=== PATIENT | female | born 1935 | race Caucasian/White ===

== ENCOUNTER 2016-08-09 08:38 | Inpatient (IN) | payer MEDICARE ==
[2016-08-09 08:44] LABS: Glucose,Whole Blood 138 mg/dL (75-99)
[2016-08-09] MEDS ORDERED: SODIUM CHLORIDE 0.9% 1,000 ML IV STA (08:56)
--- NOTE | 2016-08-09 08:59 | ED ---
General Adult HPI - General Chief complaint: Syncope Stated complaint: Syncope Time Seen by Provider: 08/09/16 08:51 Source: patient, RN notes reviewed Mode of arrival: wheelchair Limitations: no limitations - History of Present Illness Initial comments: Patient is a pleasant 81-year-old female presenting to the emergency department complaining of syncopal episode. Patient did bring her daughter to the hospital. Patient was sitting down for approximately 5 minutes when she then passed out. Patient felt warm all over prior to this episode. Patient did vomit once following the episode. Patient still feels somewhat warm however otherwise has no complaints. No chest pain. No dyspnea. No weakness or confusion. - Related Data Home Medications Medication Instructions Recorded Confirmed Aspirin 325 mg PO DAILY 08/09/16 08/09/16 Ezetimibe/Simvastatin [Vytorin 1 tab PO DAILY 08/09/16 08/09/16 10-40 mg Tablet] Metoprolol Succinate (ER) [Toprol 25 mg PO DAILY 08/09/16 08/09/16 Xl] Allergies Allergy/AdvReac Type Severity Reaction Status Date / Time No Known Allergies Allergy Verified 08/09/16 09:52 Review of Systems ROS Statement: Those systems with pertinent positive or pertinent negative responses have been documented in the HPI. ROS Other: All systems not noted in ROS Statement are negative. Constitutional: Denies: fever Eyes: Denies: eye pain ENT: Denies: ear pain Respiratory: Denies: cough, dyspnea Cardiovascular: Denies: chest pain Endocrine: Denies: fatigue Gastrointestinal: Reports: nausea, vomiting. Denies: abdominal pain Genitourinary: Denies: dysuria Musculoskeletal: Denies: back pain Skin: Denies: rash Neurological: Denies: headache, weakness, numbness, confusion Past Medical History Past Medical History: Chest Pain / Angina, Hyperlipidemia, Hypertension, Osteoarthritis (OA), Thyroid Disorder Additional Past Medical History / Comment(s): leonor cataracts, past fall broke rt leg, stress test, growth(hard spot in mouth unable to wear denture) History of Any Multi-Drug Resistant Organisms: None Reported Past Surgical History: Back Surgery, Hysterectomy, Orthopedic Surgery Additional Past Surgical History / Comment(s): thyroidectomy,edg/colonoscopy, leonor knee arthroscopies, leonor knee arthroplasties, sx to repair broken fibula. Past Anesthesia/Blood Transfusion Reactions: Motion Sickness Additional Past Anesthesia/Blood Transfusion Reaction / Comment(s): blood transfusion-no reaction Past Psychological History: No Psychological Hx Reported Smoking Status: Never smoker Past Alcohol Use History: None Reported Past Drug Use History: None Reported - Past Family History Mother Family Medical History: Cancer Additional Family Medical History / Comment(s): breast cancer Sister(s) Family Medical History: Cancer Additional Family Medical History / Comment(s): breast cancer Father Family Medical History: Myocardial Infarction ([place]) Additional Family Medical History / Comment(s): from mi at age 62 General Exam Limitations: no limitations General appearance: alert, in no apparent distress Head exam: Present: atraumatic Eye exam: Present: normal appearance, PERRL ENT exam: Present: normal oropharynx Neck exam: Present: normal inspection Respiratory exam: Present: normal lung sounds bilaterally Cardiovascular Exam: Present: regular rate, normal rhythm Expanded Peripheral pulses: 2+: Radial (R), Radial (L), Dorsalis Pedis (R), Dorsalis Pedis (L) GI/Abdominal exam: Present: soft, normal bowel sounds. Absent: distended, tenderness, guarding, rebound, rigid, pulsatile mass Extremities exam: Present: normal inspection. Absent: pedal edema, calf tenderness Neurological exam: Present: alert, CN II-XII intact Expanded Neurological exam: Present: protecting the airway Speech: Present: fluid speech Motor strength exam: RUE: 5, LUE: 5, RLE: 5, LLE: 5 Eye Response: (4) open spontaneously Motor Response: (6) obeys commands Verbal Response: (5) oriented Psychiatric exam: Present: normal affect, normal mood Skin exam: Present: normal color Course Vital Signs 08/09/16 08:40 Temperature 98 F Pulse Rate 71 Respiratory 16 Rate Blood Pressure 152/84 O2 Sat by Pulse 96 Oximetry EKG Findings - EKG Comments: EKG Findings:: Normal sinus rhythm at 80. Normal intervals. Normal axis. Normal QRS. T wave inversion in leads V1 through V4. Previous EKG reviewed. Medical Decision Making - Medical Decision Making Patient reevaluated and resting comfortably in bed. Patient complains of continued nausea and did vomit one more time. Case was discussed with practitioner Camila, who will admit for Dr. Hopson. - Lab Data Result diagrams: 08/09/16 08:55 08/09/16 08:55 Lab Results 08/09/16 08/09/16 08/09/16 Range/Units 08:42 08:55 08:55 WBC 11.9 H (3.8-10.6) k/uL RBC 4.92 (3.80-5.40) m/uL Hgb 14.9 (11.4-16.0) gm/dL Hct 44.2 (34.0-46.0) % MCV 89.8 (80.0-100.0) fL MCH 30.3 (25.0-35.0) pg MCHC 33.7 (31.0-37.0) g/dL RDW 13.0 (11.5-15.5) % Plt Count 222 (150-450) k/uL Neutrophils % (Manual) 51.0 % Lymphocytes % (Manual) 45.0 % Monocytes % (Manual) 4.0 % Neutrophils # (Manual) 6.1 (1.3-7.7) k/uL Lymphocytes # (Manual) 5.4 H (1.0-4.8) k/uL Monocytes # (Manual) 0.5 (0-1.0) k/uL Nucleated RBCs 0 (0-0) /100 WBC Manual Slide Review Performed RBC Morphology Normal PT (9.0-12.0) sec INR (<1.1) APTT (22.0-30.0) sec Sodium (137-145) mmol/L Potassium (3.5-5.1) mmol/L Chloride (98-107) mmol/L Carbon Dioxide (22-30) mmol/L Anion Gap mmol/L BUN (7-17) mg/dL Creatinine (0.52-1.04) mg/dL Est GFR (MDRD) Af Amer (>60 ml/min/1.73 sqM) Est GFR (MDRD) Non-Af (>60 ml/min/1.73 sqM) Glucose (74-99) mg/dL POC Glucose (mg/dL) 138 H (75-99) mg/dL POC Glu Equipment Operator/Laborer/Supervisor ID Lyndsey Keys Calcium (8.4-10.2) mg/dL Total Bilirubin (0.2-1.3) mg/dL AST (14-36) U/L ALT (9-52) U/L Alkaline Phosphatase (38-126) U/L Total Creatine Kinase <20 L (30-135) U/L CK-MB (CK-2) 0.4 (0.0-2.4) ng/mL CK-MB (CK-2) Rel Index 0.0 Troponin I <0.012 (0.000-0.034) ng/mL Total Protein (6.3-8.2) g/dL Albumin (3.5-5.0) g/dL 08/09/16 08/09/16 Range/Units 08:55 08:55 WBC (3.8-10.6) k/uL RBC (3.80-5.40) m/uL Hgb (11.4-16.0) gm/dL Hct (34.0-46.0) % MCV (80.0-100.0) fL MCH (25.0-35.0) pg MCHC (31.0-37.0) g/dL RDW (11.5-15.5) % Plt Count (150-450) k/uL Neutrophils % (Manual) % Lymphocytes % (Manual) % Monocytes % (Manual) % Neutrophils # (Manual) (1.3-7.7) k/uL Lymphocytes # (Manual) (1.0-4.8) k/uL Monocytes # (Manual) (0-1.0) k/uL Nucleated RBCs (0-0) /100 WBC Manual Slide Review RBC Morphology PT 10.4 (9.0-12.0) sec INR 1.0 (<1.1) APTT 21.6 L (22.0-30.0) sec Sodium 141 (137-145) mmol/L Potassium 3.8 (3.5-5.1) mmol/L Chloride 106 (98-107) mmol/L Carbon Dioxide 25 (22-30) mmol/L Anion Gap 10 mmol/L BUN 10 (7-17) mg/dL Creatinine 0.63 (0.52-1.04) mg/dL Est GFR (MDRD) Af Amer >60 (>60 ml/min/1.73 sqM) Est GFR (MDRD) Non-Af >60 (>60 ml/min/1.73 sqM) Glucose 136 H (74-99) mg/dL POC Glucose (mg/dL) (75-99) mg/dL POC Glu Equipment Operator/Laborer/Supervisor ID Calcium 9.1 (8.4-10.2) mg/dL Total Bilirubin 0.8 (0.2-1.3) mg/dL AST 19 (14-36) U/L ALT 15 (9-52) U/L Alkaline Phosphatase 68 (38-126) U/L Total Creatine Kinase (30-135) U/L CK-MB (CK-2) (0.0-2.4) ng/mL CK-MB (CK-2) Rel Index Troponin I (0.000-0.034) ng/mL Total Protein 6.7 (6.3-8.2) g/dL Albumin 3.7 (3.5-5.0) g/dL - Radiology Data Radiology results: report reviewed (Computed tomography scan of the brain shows no acute hemorrhage or mass effect. Remote menstrual vascular ischemia. Low- attenuation basal ganglion likely on the basis of lacunar infarct), image reviewed (Chest x-ray reveals no acute process) Disposition Clinical Impression: Syncope Disposition: ADMITTED IP TO THIS [facility] Referrals: Willie Hopson DO [Primary Care Provider] - 1-2 days Decision Time: 10:04
[2016-08-09 09:13] LABS: CHCM 33.6; HCT 44.2 % (34.0-46.0); HDW 2.38; HGB 14.9 gm/dL (11.4-16.0); MCH 30.3 pg (25.0-35.0); MCHC 33.7 g/dL (31.0-37.0); MCV 89.8 fL (80.0-100.0); RBC 4.92 m/uL (3.80-5.40); WBC 11.9 k/uL (3.8-10.6); WBC (Perox) 11.66
--- NOTE | 2016-08-09 09:21 | XR ---
EXAMINATION TYPE: XR chest 2V DATE OF EXAM: 08/09/2016 COMPARISON: 12/11/2015 TECHNIQUE: PA and lateral views submitted. HISTORY: Syncope FINDINGS: The lungs are clear and there is no pneumothorax, pleural effusion, or focal pneumonia. Atheroscler otic change aorta. Chronic change of the AC joints. Hypertrophic change of the spine. IMPRESSION: 1. No acute process.
[2016-08-09 09:23] LABS: ALT 15 U/L (9-52); AST 19 U/L (14-36); Alkaline Phosphatase 68 U/L (38-126); Anion Gap 10 mmol/L; Blood Urea Nitrogen 10 mg/dL (7-17); Calcium 9.1 mg/dL (8.4-10.2); Carbon Dioxide 25 mmol/L (22-30); Chloride 106 mmol/L (98-107); Glucose 136 mg/dL (74-99); Non-African American GFR(MDRD) >60 (>60 ml/min/1.73 sqM); Potassium 3.8 mmol/L (3.5-5.1); Sodium 141 mmol/L (137-145); Total Bilirubin 0.8 mg/dL (0.2-1.3); Total Protein 6.7 g/dL (6.3-8.2)
--- NOTE | 2016-08-09 09:24 | CT ---
EXAMINATION TYPE: CT brain wo con DATE OF EXAM: 08/09/2016 COMPARISON: NONE HISTORY: syncope CT DLP: 999.8 mGycm Automated exposure control for dose reduction was used. FINDINGS: Findings of chronic mastoiditis noted. Moderate degenerative change. Periventricular low attenuation nonspecific but most compatible with remote microvascular ischemia. Low-attenuation the basal ganglia bilaterally. IMPRESSION: NO ACUTE HEMORRHAGE OR MASS EFFECT. NONSPECIFIC WHITE MATTER CHANGES MOST TYPICAL REMOTE MICROVASCULA R ISCHEMIA. CORRELATE CLINICALLY. LOW-ATTENUATION in THE BASAL GANGLIA LIKELY ON THE BASIS OF LACUNAR INFARCTIONS. IF THERE IS CLINICA L CONCERN FOR ACUTE ISCHEMIA CORRELATE WITH DIFFUSION WEIGHTED MRI.
[2016-08-09 09:39] LABS: Add Differential Manual Differential; Creatine Kinase <20 U/L (30-135)
[2016-08-09 09:44] LABS: Nucleated Red Blood Cells 0 /100 WBC (0-0); Total Cells Counted 100
[2016-08-09 09:45] LABS: Manual Review Performed; RBC Morphology Normal
[2016-08-09 09:48] LABS: Prothrombin Time 10.4 sec (9.0-12.0)
[2016-08-09 09:52] LABS: Creatine Kinase MB 0.4 ng/mL (0.0-2.4); Troponin I <0.012 ng/mL (0.000-0.034)
[2016-08-09 10:01] LABS: Partial Thromboplastin Time 21.6 sec (22.0-30.0)
[2016-08-09] MEDS ORDERED: ONDANSETRON 4 MG/2 ML VIAL IVP STA (10:02)
[2016-08-09] MEDS ORDERED: NALOXONE 0.4 MG/ML 1 ML VIAL IV PRN (10:04)
[2016-08-09] MEDS ORDERED: ONDANSETRON 4 MG/2 ML VIAL IVP PRN (10:04)
[2016-08-09] MEDS: SODIUM CHLORIDE 0.9% 1,000 ML IV SCH (12:36)
[2016-08-09] MEDS: ENOXAPARIN 40 MG/0.4 ML SYRINGE SQ SCH (12:36)
--- NOTE | 2016-08-09 12:43 | P.CONS ---
History of Present Illness - Reason for Consult Consult date: 08/09/16 Syncope - Chief Complaint Syncope - History of Present Illness Is a pleasant 81-year-old female being evaluated by the neurology service for a syncopal episode. She was sitting in a chair at home when she became hot and nauseous and had a syncopal episode in her chair. Her daughter brought her in and said that it lasted a few seconds. There was no tongue biting, witnessed seizure activity, incontinence, or postictal confusion. She denied chest pain head injury or recent illness. Initial workup in the ER did show a mildly elevated white count. CT of the brain showed no acute hemorrhage or mass. There was nonspecific white matter changes likely representing remote microvascular ischemia. There was low attenuation in the basal ganglia possible lacunar infarcts. At the time my exam she is resting comfortably in bed in no acute distress. Review of Systems All systems: negative Past Medical History Past Medical History: Chest Pain / Angina, Hyperlipidemia, Hypertension, Osteoarthritis (OA), Thyroid Disorder Additional Past Medical History / Comment(s): leonor cataracts, past fall broke rt leg, stress test, growth(hard spot in mouth unable to wear denture) History of Any Multi-Drug Resistant Organisms: None Reported Past Surgical History: Back Surgery, Hysterectomy, Orthopedic Surgery Additional Past Surgical History / Comment(s): thyroidectomy,edg/colonoscopy, leonor knee arthroscopies, leonor knee arthroplasties, sx to repair broken fibula. Past Anesthesia/Blood Transfusion Reactions: Motion Sickness Additional Past Anesthesia/Blood Transfusion Reaction / Comm: blood transfusion- no reaction Past Psychological History: No Psychological Hx Reported Smoking Status: Never smoker - Past Family History Mother Family Medical History: Cancer Additional Family Medical History / Comment(s): breast cancer Sister(s) Family Medical History: Cancer Additional Family Medical History / Comment(s): breast cancer Father Family Medical History: Myocardial Infarction (CT) Additional Family Medical History / Comment(s): from mi at age 62 Medications and Allergies Home Medications Medication Instructions Recorded Confirmed Type Aspirin 325 mg PO DAILY 08/09/16 08/09/16 History Ezetimibe/Simvastatin [Vytorin 1 tab PO DAILY 08/09/16 08/09/16 History 10-40 mg Tablet] Metoprolol Succinate (ER) [Toprol 25 mg PO DAILY 06/18/17 06/18/17 History Xl] Allergies Allergy/AdvReac Type Severity Reaction Status Date / Time No Known Allergies Allergy Verified 08/09/16 09:52 Physical Exam Vitals: Vital Signs Temp Pulse Pulse Resp BP BP Pulse Ox 08/09/16 11:05 97.1 F L 68 18 145/82 100 08/09/16 10:45 97.9 F 65 16 145/73 97 08/09/16 10:10 63 16 132/70 98 08/09/16 09:35 62 16 137/69 95 08/09/16 08:40 98 F 71 16 152/84 96 Intake and Output 08/08/16 08/09/16 08/09/16 22:59 06:59 14:59 Other: Weight 74.5 kg Patient Weight 08/10/16 06:59 Weight 74.5 kg - Constitutional General appearance: average body habitus, cooperative, no acute distress - EENT Eyes: no abnormal pupil, EOMI, PERRLA, no ptosis ENT: hearing grossly normal - Neck Neck: normal ROM, no rigidity - Respiratory Respiratory: negative: prolonged expiration, prolonged inspiration - Cardiovascular Rhythm: regular - Gastrointestinal General gastrointestinal: no distended, no tenderness - Neurologic Patient is alert awake and oriented 3. Speech-language are normal. There is no lateralizing weakness. There is no facial asymmetry. Strength is 5 minus out of 5 bilateral upper and lower extremities. There is no sensory deficit. No tremors or seizure-like activities are seen. Results CBC & Chem 7: 08/09/16 08:55 08/09/16 08:55 Labs: Abnormal Lab Results - Last 24 Hours (Table) 08/09/16 08/09/16 08/09/16 Range/Units 08:42 08:55 08:55 WBC 11.9 H (3.8-10.6) k/uL Lymphocytes # (Manual) 5.4 H (1.0-4.8) k/uL APTT (22.0-30.0) sec Glucose (74-99) mg/dL POC Glucose (mg/dL) 138 H (75-99) mg/dL Total Creatine Kinase <20 L (30-135) U/L 08/09/16 08/09/16 Range/Units 08:55 08:55 WBC (3.8-10.6) k/uL Lymphocytes # (Manual) (1.0-4.8) k/uL APTT 21.6 L (22.0-30.0) sec Glucose 136 H (74-99) mg/dL POC Glucose (mg/dL) (75-99) mg/dL Total Creatine Kinase (30-135) U/L Assessment and Plan (1) Dizziness Status: Acute (2) Abnormal CT scan of head Status: Acute (3) 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 I will order MRI of the brain, carotid Doppler, a lipid panel, serum homocysteine and an EEG area recommend neurological checks, evaluation by physical and occupational therapy. Continue current dose of aspirin and Vytorin. Continue the rest of your workup. We will continue to follow and make recommendations based on the above studies. I have reviewed the history and physical on the above patient. I have reviewed the above note, and agree.
--- NOTE | 2016-08-09 15:38 | US ---
EXAMINATION TYPE: US carotid duplex BILAT DATE OF EXAM: 08/09/2016 COMPARISON: NONE CLINICAL HISTORY: syncope. EXAM MEASUREMENTS: RIGHT: Peak Systolic Velocity (PSV) cm/sec ----- Right CCA: 46.8 ----- Right ICA: 83.1 ----- Right ECA: 101.7 ICA/CCA ratio: 1.8 RIGHT: End Diastole cm/sec ----- Right CCA: 10.6 ----- Right ICA: 10.6 ----- Right ECA: 9.1 LEFT: Peak Systolic Velocity (PSV) cm/sec ----- Left CCA: 64.4 ----- Left ICA: 70.9 ----- Left ECA: 96.8 ICA/CCA ratio: 1.1 LEFT: End Diastole cm/sec ----- Left CCA: 24.1 ----- Left ICA: 16.0 ----- Left ECA: 6.3 VERTEBRALS (direction of flow): Right Vertebral: Antegrade Left Vertebral: Antegrade Limited due to tortuosity of vessels bilaterally. No significant stenosis seen IMPRESSION: 1. Turbulent flow likely related to tortuosity of the vessels. 2. No suspicious increase velocities suggest significant flow-limiting stenosis. Criteria for Assigning % of Stenosis / Diameter reduction (Estimation based on the indirect measurements of the internal carotid artery velocities (ICA PSV). 1. Normal (no stenosis)=ICA PSV < 125 cm/s: ratio < 2.0: ICA EDV<40 cm/s. 2. Less than 50% stenosis=ICA PSV < 125 cm/s: ratio < 2.0: ICA EDV<40 cm/s. 3. 50 to 69% stenosis=ICA PSV of 125 to 230 cm/s: ration 2.0 ? 4.0: ICA EDV 40-100 cm/s. 4. Greater than 70% stenosis to near occlusion= ICA PSV > 230 cm/s: ratio > 4.0: ICA EDV > 100 cm/s. 5. Near occlusion= ICA PSV velocities may be low or undetectable: variable ratio and ICA EDV. 6. Total occlusion=unable to detect flow.
[2016-08-09 16:39] LABS: Cholesterol 190 mg/dL (<200); HDL Cholesterol 51 mg/dL (40-60); Triglycerides 45 mg/dL (<150)
--- NOTE | 2016-08-09 17:24 | HP ---
DATE OF ADMISSION: 08/09/2016 PRESENTING COMPLAINT: Passed out. HISTORY OF PRESENTING COMPLAINT: This is a very pleasant 81 -year-old patient of Dr. Hopson's whose chronic stable medical conditions include osteoarthritis, uses a walker, hypertension. The patient ( ) ER, was sitting there, felt a bit warm and the patient passed out. There was no shaking, tongue biting, incontinence, it was very short lived; hence, patient was admitted. Patient has no focal residual weakness. REVIEW OF SYSTEMS: CONSTITUTIONAL: None. HEENT: None. RESPIRATORY: None. CARDIOVASCULAR: None. GASTROINTESTINAL: None. GENITOURINARY: None. MUSCULOSKELETAL: Pain in the joints. Dermatologic: None. HEMATOLOGIC: None. LYMPHATIC: None. PSYCHIATRY: None. NEUROLOGICAL: As above. PAST MEDICAL HISTORY: Hyperlipidemia, hypertension, osteoarthritis, hypothyroid, bilateral cataract surgery, in the past, fell and broke the right leg. PAST SURGICAL HISTORY: Back surgery, hysterectomy, thyroidectomy, EGD, colonoscopy, bilateral knee arthroscopy, bilateral knee arthroplasty, surgery to repair a broken fibula. SOCIAL HISTORY: Lives by herself. No smoking. No alcohol. FAMILY HISTORY: Breast cancer. HOME MEDICATIONS: 1. Toprol-XL 25 mg a day. 2. ( ) 40, 1 tablet p.o. daily. 3. Aspirin 325 p.o. daily. ALLERGIES: None. On examination, temperature 97.1, pulse 68. Respiratory rate 18. Blood pressure 125/82, pulse ox 100% on 2 liters. Orthostatics checked, are negative. ASSESSMENT: 1. Episode of passing out with no seizure-like activity. 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 2. Primary osteoarthritis in multiple joints, bilateral. 3. Chronic gait dysfunction uses a walker. 4. Essential hypertension. PLAN: Home medications are resumed. We will put the patient on baby aspirin, neurology did earlier see the patient, waiting for neurological work-up. CT scan did suggest the ( ) in the basal ganglia, though I doubt that is manifestation with manifesting as a clinical presentation of syncope. Await further evaluation. Also note the patient's EKG nonspecific, shows flipped T waves in the anterior leads and not entirely compatible with presentation with no chest pain. Copy to Dr. Hopson.
--- NOTE | 2016-08-09 17:53 | CONS ---
DATE OF CONSULTATION: Mrs. Bonilla is an 81-year-old female who follows with by Dr. John who was in the emergency room with his daughter, who was getting admitted to the hospital and she felt warm all over and subsequently had a syncopal episode that was brief. She felt a little bit nauseated and vomited. She had a similar admission in November of last year when she presented with her son-in-law, who is undergoing a procedure and then she had a syncopal episode. At that time she had an echocardiogram that revealed a preserved left ventricular size and systolic function and her carotid duplex scan showed no evidence of high-grade disease. She had a chest CT angiogram that showed no evidence of pulmonary embolism during that admission. She is usually active physically, has no exertional chest pain. She has no dizziness. No palpitation. No PND, orthopnea, or peripheral edema. Her coronary risk factors are remarkable for hyperlipidemia. She is hypertensive. She is not a smoker, nondiabetic. Her medications include: 1. Vytorin 10/40 mg daily. 2. Metoprolol succinate 25 mg daily. 3. Aspirin once a day. REVIEW OF SYSTEMS: RESPIRATORY SYSTEM: She has no recent wheezing. No cough. No history of documented obstructive lung disease. GI system: No recent GI bleeding. No peptic ulcer disease. system: No dysuria or hematuria. Nervous system: No history of stroke or seizure. PHYSICAL EXAMINATION: She is an 81-year-old female, alert, oriented, in no apparent distress. Blood pressure 145/70 with a heart in the 60s. HEAD: Normocephalic. EYES: Sclerae anicteric. NECK: Good upstroke. No bruit. No jugular venous distention. LUNGS: Clear to auscultation. Heart regular rate and rhythm. S1, S2, no S3, with systolic murmur at the base. No diastolic murmur. No rub. ABDOMEN: Soft, nontender, positive bowel sounds. No organomegaly. EXTREMITIES: No edema. Intact distal pulses. Lab data revealed troponin less than 0.012. BUN and creatinine 10 and 0.63, potassium 3.8. Hemoglobin of 14.9. EKG revealed sinus mechanism, normal axis and intervals. T-wave inversion anteriorly that was noted in the past with R wave progression. Chest x-ray revealed no acute infiltrate. The CT scan of the head shows evidence to suggest lacunar infarct. IMPRESSION: 1. Syncopal episode most likely related to vasovagal syncope. Patient had similar events in November 2015. 2. Hypertension. 3. Hyperlipidemia. RECOMMENDATIONS: From the cardiac standpoint, we will continue present therapy. I do not see any evidence to suggest malignant arrhythmia. She had an echocardiogram done recently that was unremarkable. Thank you for this consult. We will follow with you.
[2016-08-09] MEDS: FAMOTIDINE 20 MG TAB PO SCH (20:44)
[2016-08-09 22:28] LABS: Appearance,Urine Clear (Clear); Bacteria,Urine Many /hpf; Bilirubin,Urine Negative (Negative); Glucose,Urine (UA) Negative (Negative); Ketones,Urine Negative (Negative); Leukocyte Esterase,Urine Large (Negative); Mucus,Urine Rare /hpf; Nitrite,Urine Negative (Negative); PH, Urine 5.5 (5.0-8.0); Particle Count 7355; Protein,Urine Negative (Negative); RBC,Urine 3 /hpf (0-5); Specific Gravity,Urine 1.015 (1.001-1.035); Squamous Epithelial Cell,Urine 1 /hpf (0-4); UA Billing (MACRO vs. MICRO) MICRO; WBC,Urine 11 /hpf (0-5)
[2016-08-10 06:27] LABS: Basophils % (A) 0 %; CH 29.9; CHCM 33.4; Eosinophils # (A) 0.1 k/uL (0-0.7); Eosinophils % (A) 1 %; HCT 37.9 % (34.0-46.0); HDW 2.33; HGB 12.8 gm/dL (11.4-16.0); Luc # (Auto) 0.18; Luc % (Auto) 2; Lymphocytes # (A) 2.4 k/uL (1.0-4.8); Lymphocytes % (A) 27 %; MCH 30.1 pg (25.0-35.0); MCHC 33.6 g/dL (31.0-37.0); MCV 89.6 fL (80.0-100.0); Mean Platelet Volume 7.7; Monocytes # (A) 0.7 k/uL (0-1.0); Monocytes % (A) 8 %; Neutrophils # (A) 5.7 k/uL (1.3-7.7); Neutrophils % (A) 63 %; RBC 4.23 m/uL (3.80-5.40); RDW 12.8 % (11.5-15.5); WBC 9.1 k/uL (3.8-10.6); WBC (Perox) 9.53
[2016-08-10 06:37] LABS: Anion Gap 5 mmol/L; Blood Urea Nitrogen 10 mg/dL (7-17); Calcium 8.7 mg/dL (8.4-10.2); Carbon Dioxide 28 mmol/L (22-30); Chloride 105 mmol/L (98-107); Glucose 80 mg/dL (74-99); Non-African American GFR(MDRD) >60 (>60 ml/min/1.73 sqM); Sodium 138 mmol/L (137-145)
[2016-08-10] MEDS: ENOXAPARIN 40 MG/0.4 ML SYRINGE SQ SCH (07:39)
[2016-08-10] MEDS: FAMOTIDINE 20 MG TAB PO SCH (07:40)
[2016-08-10] MEDS: SODIUM CHLORIDE 0.9% 1,000 ML IV SCH (07:40)
--- NOTE | 2016-08-10 08:23 | MR ---
EXAMINATION TYPE: MR brain wo con DATE OF EXAM: 08/10/2016 COMPARISON: CT scan 08/09/2016 HISTORY: Syncope, abnormal CT T1-weighted sagittal, T2, FLAIR, and diffusion axial, and T2 coronal coronal views of the brain are s ubmitted. There is no evidence of acute ischemia. Changes of chronic sinusitis and left mastoiditis noted. Abnormal signal within the basal ganglia bilaterally compatible with remote lacunar infarctions. No midline shift. Mild to moderate generalized degenerative change. Numerous areas of abnormal signal within the white matter bilaterally are nonspecific but most typical remote microvascular ischemia. Abnormal signal within the letitia is suggestive of remote ischemia. Craniocervical junction maintained. Sella turcica has a normal appearance. No cerebellopontine angle mass. IMPRESSION: 1. No acute intracranial process. 2. Degenerative and areas of remote ischemia as discussed above. 3. Changes of chronic sinusitis and left mastoiditis
[2016-08-10] MEDS ORDERED: ATORVASTATIN 20 MG TAB PO SCH (09:00)
[2016-08-10] MEDS ORDERED: METOPROLOL SUCCINATE (ER) 25 MG TAB.ER.24H PO SCH (09:00)
[2016-08-10] MEDS ORDERED: EZETIMIBE 10 MG TAB PO SCH (09:00)
--- NOTE | 2016-08-10 11:52 | P.PN ---
Subjective Principal diagnosis: Syncope This is an 81-year-old female who follows regularly with Dr. John in the office, she presented to the hospital with a syncopal episode. Patient was seen in consultation by Dr. Castro who felt that the patient's syncope was likely vasovagal in nature. She was seen and examined today, denied any further dizziness or lightheadedness. No bradycardia arrhythmias have been noted on the monitor. Objective - Vital Signs Vital signs: Vital Signs Temp 97.3 F L 08/10/16 11:43 Pulse 69 08/10/16 11:43 Resp 18 08/10/16 11:43 BP 121/60 08/10/16 11:43 Pulse Ox 95 08/10/16 11:43 Intake & Output 08/09/16 08/10/16 08/10/16 18:59 06:59 18:59 Intake Total 305 Output Total 200 Balance -200 305 Weight 74.5 kg 76.6 kg Intake: Oral 305 Output: Urine 200 Other: Voiding Method Toilet Toilet # Voids 1 - Exam PHYSICAL EXAMINATION: HEENT: Head is atraumatic, normocephalic. Pupils equal, round. Neck is supple. There is no elevated jugular venous pressure. HEART EXAMINATION: Heart S1 and S2 systolic murmur is heard. CHEST EXAMINATION: Lungs are clear to auscultation and precussion. No chest wall tenderness is noted on palpation or with deep breathing. ABDOMEN: Soft, nontender. Bowel sounds are heard. No organomegaly noted. EXTREMITIES: 2+ peripheral pulses with no evidence of peripheral edema and no calf tenderness noted. NEUROLOGIC patient is awake, alert and oriented -3. . - Labs CBC & Chem 7: 08/10/16 05:58 08/10/16 05:58 Labs: Abnormal Lab Results - Last 24 Hours (Table) 08/09/16 08/09/16 Range/Units 15:54 22:11 LDL Cholesterol, Calc 130 H (0-99) mg/dL Ur Leukocyte Esterase Large H (Negative) Urine WBC 11 H (0-5) /hpf Urine Bacteria Many H (None) /hpf Urine Mucus Rare H (None) /hpf Assessment and Plan (1) Vasovagal syncope Status: Acute (2) HTN (hypertension) Status: Acute (3) Hyperlipemia Status: Acute Plan: From cardiology's perspective, patient may be able to be discharged home today. We will make her a follow-up appointment to see Dr. John in the office post discharge. DNP note has been reviewed, I agree with a documented findings and plan of care. Patient was seen and examined.
[2016-08-10 15:01] VITALS: BP 117/54; PULSE 67; RESP 16; TEMP 97
--- NOTE | 2016-08-11 18:53 | EEG ---
DATE OF SERVICE: 08/10/2016 REASON FOR TESTING: Syncope. DESCRIPTION OF THE PROCEDURE: This EEG was performed using a 21-channel digital electroencephalograph, following international 10-20 system. DESCRIPTION OF THE RECORDING: From the beginning of the tracing, and with the patient's eyes closed, the background rhythm was mostly consisting of 8 Hz alpha frequency in the posterior occipital leads. No obvious asymmetry is seen. Photic stimulation was performed with a minimal driving response seen. No pathological waves were elicited. Frequent muscle and movement artifacts are seen. Occasional lead artifacts are seen. Hyperventilation was not performed. The patient remains awake throughout the tracing. No epileptiform discharges were seen. Her EKG lead showed a regular rate and rhythm. INTERPRETATION: This awake EEG can be considered within normal limits. There was no asymmetry seen. No epileptiform discharges were noticed. The absence of epileptiform discharges does not rule out the diagnosis of epilepsy; therefore clinical correlation is recommended.
--- NOTE | 2016-08-14 13:33 | DS ---
DATE OF ADMISSION: 08/09/2016 DATE OF DISCHARGE: 08/10/2016 FINAL DIAGNOSES: 1. Syncope, likely vasovagal. 2. Primary osteoarthritis of multiple joints, bilateral. 3. Chronic gait dysfunction, uses a walker. 4. Essential hypertension. HOSPITAL COURSE: Just sitting in the ER, waiting. It is pretty warm. Passed out, felt to be vasovagal. Patient had workup, including MRI of the brain, carotid Doppler, CT scan of brain, all negative. CONSULTATION: Dr. Mckee from neurology, Dr. Castro from cardiology. Okayed by both those services to be discharged. On exam, lungs are clear. CARDIOVASCULAR: First and second sounds normal. Troponins are negative. DISCHARGE MEDICATIONS: 1. Vytorin 10/40, 1 tablet p.o. daily. 2. Toprol-XL 25 mg daily. 3. Aspirin 81 mg daily. Follow up with Dr. Hopson on 08/14/2016. Follow up with Dr. John on 08/21/2016.
== END 2016-08-10 15:13 | disposition home or self-care (01) | DRG 312 ==
LOC: EC 08:38 → 6SEL 10:04
PROVIDERS: ADMIT Hospitalist; ATTEND Hospitalist
DX: R55 Syncope and collapse (principal); I10 Essential (primary) hypertension; E78.5 Hyperlipidemia, unspecified; M19.91 Primary osteoarthritis, unspecified site; E03.9 Hypothyroidism, unspecified; R26.9 Unspecified abnormalities of gait and mobility; Z79.82 Long term (current) use of aspirin; Z79.899 Other long term (current) drug therapy; Z98.42 Cataract extraction status, left eye; Z98.41 Cataract extraction status, right eye; Z90.710 Acquired absence of both cervix and uterus; Z96.653 Presence of artificial knee joint, bilateral; Z82.49 Family history of ischemic heart disease and other diseases of the circulatory system
CPT/HCPCS: 36415; 70450; 70551; 71020; 80048; 80053; 80061; 81001; 82550; 82553; 83090; 84484; 85025; 85610; 85730; 93005; 93880; 95816; 96361; 96374; 99285

== ENCOUNTER 2017-08-02 08:08 | Emergency (ER) | payer MEDICARE ==
[2017-08-02 08:15] VITALS: RESP 18
[2017-08-02] MEDS ORDERED: SODIUM CHLORIDE 0.9% 1,000 ML IV STA (08:29)
[2017-08-02] MEDS ORDERED: ONDANSETRON 4 MG/2 ML VIAL IVP STA ×2 (08:29→09:20)
--- NOTE | 2017-08-02 08:32 | ED ---
General Adult HPI - General Source: EMS, RN notes reviewed Mode of arrival: EMS Limitations: no limitations <Clif Crooks - Last Filed: 08/02/17 11:17> <Andrews Gurrola - Last Filed: 08/02/17 11:34> - General Chief complaint: Dizziness Stated complaint: quinn Time Seen by Provider: 08/02/17 08:21 - History of Present Illness Initial comments: Patient 82-year-old female presents emergency room today by EMS, with chief complaint of feeling nauseous and dizzy. She states she woke up this morning got out of bed and felt dizzy. She states began having some symptoms of nausea and some vomiting. Denies any signs of blood in the emesis. Patient denies any pain. She denies similar symptoms in the past. Denies any other sick contacts at home. Patient denies any recent fever, chills, shortness of breath, chest pain, back pain, abdominal pain, numbness or tingling, dysuria or hematuria, constipation or diarrhea, headaches or visual changes, or any other complaints. (Clif Crooks) - Related Data Home Medications Medication Instructions Recorded Confirmed Ezetimibe/Simvastatin [Vytorin 1 tab PO DAILY 08/09/16 08/02/17 10-40 mg Tablet] Metoprolol Succinate (ER) [Toprol 25 mg PO DAILY 08/09/16 08/02/17 XL] Previous Rx's Medication Instructions Recorded Aspirin 81 mg PO DAILY #1 chewable 08/10/16 Meclizine [Antivert] 25 mg PO DAILY 10 Days tab 08/02/17 Ondansetron Odt [Zofran ODT] 4 mg PO Q8HR PRN #10 tab 08/02/17 Allergies Allergy/AdvReac Type Severity Reaction Status Date / Time No Known Allergies Allergy Verified 08/02/17 10:04 Review of Systems ROS Other: All systems not noted in ROS Statement are negative. <Clif Crooks - Last Filed: 08/02/17 11:17> ROS Other: All systems not noted in ROS Statement are negative. <Andrews Gurrola - Last Filed: 08/02/17 11:34> ROS Statement: Those systems with pertinent positive or pertinent negative responses have been documented in the HPI. Past Medical History Past Medical History: Chest Pain / Angina, Hyperlipidemia, Hypertension, Osteoarthritis (OA), Thyroid Disorder Additional Past Medical History / Comment(s): leonor cataracts, past fall broke rt leg, stress test, growth(hard spot in mouth unable to wear denture) History of Any Multi-Drug Resistant Organisms: None Reported Past Surgical History: Back Surgery, Hysterectomy, Orthopedic Surgery Additional Past Surgical History / Comment(s): thyroidectomy,edg/colonoscopy, leonor knee arthroscopies, leonor knee arthroplasties, sx to repair broken fibula. Past Anesthesia/Blood Transfusion Reactions: Motion Sickness Additional Past Anesthesia/Blood Transfusion Reaction / Comment(s): blood transfusion-no reaction Past Psychological History: No Psychological Hx Reported Smoking Status: Never smoker Past Alcohol Use History: None Reported Past Drug Use History: None Reported - Past Family History Mother Family Medical History: Cancer Additional Family Medical History / Comment(s): breast cancer Sister(s) Family Medical History: Cancer Additional Family Medical History / Comment(s): breast cancer Father Family Medical History: Myocardial Infarction ([place]) Additional Family Medical History / Comment(s): from [place] at age 62 <Clif Crooks - Last Filed: 08/02/17 11:17> General Exam Limitations: no limitations <Clif Crooks - Last Filed: 08/02/17 11:17> <Andrews Gurrola - Last Filed: 08/02/17 11:34> - General Exam Comments Initial Comments: General: The patient is awake and alert, in no distress, and does not appear acutely ill. Eye: Pupils are equal, round and reactive to light, extra-ocular movements are intact. No nystagmus. There is normal conjunctiva bilaterally. No signs of icterus. Ears, nose, mouth and throat: There are moist mucous membranes and no oral lesions. Neck: The neck is supple, there is no tenderness or JVD. Cardiovascular: There is a regular rate and rhythm. No murmur, rub or gallop is appreciated. Respiratory: Lungs are clear to auscultation, respirations are non-labored, breath sounds are equal. No wheezes, stridor, rales, or rhonchi. Gastrointestinal: Soft, non-distended, non-tender abdomen without masses or organomegaly noted. There is no rebound or guarding present. No CVA tenderness. Musculoskeletal: Normal ROM, no tenderness. Strength 5/5. Sensation intact. Pulses equal bilaterally 2+. Neurological: A&O x 3. CN II-XII intact, There are no obvious motor or sensory deficits. Coordination appears grossly intact. Speech is normal. Skin: Skin is warm and dry and no rashes or lesions are noted. Psychiatric: Cooperative, appropriate mood & affect, normal judgment. (Clif Crooks) Course <Clif Crooks - Last Filed: 08/02/17 11:17> <Andrews Gurrola - Last Filed: 08/02/17 11:34> Vital Signs 08/02/17 08/02/17 08/02/17 08:10 09:11 11:11 Temperature 97.0 F L Pulse Rate 63 54 L 65 Respiratory 18 18 18 Rate Blood Pressure 175/71 190/74 184/69 O2 Sat by Pulse 95 98 94 L Oximetry - Reevaluation(s) Reevaluation #1: 08/02/17 11:34 PA supervision: I did personally do a [id number] evaluation the patient did discuss the findings with her and her son. Patient does have dizziness but is getting improvement after oral Antivert. She denies any headache at this time loss of function to her upper or lower extremities I did evaluate labs and imaging. I do agree with the assessment and plan. The patient does want to go home this is reasonable at this time. She will follow-up with her doctor. (Andrews Gurrola) Medical Decision Making - Lab Data Result diagrams: 08/02/17 08:20 08/02/17 08:20 <Clif Crooks - Last Filed: 08/02/17 11:17> - Lab Data Result diagrams: 08/02/17 08:20 08/02/17 08:20 <Andrews Gurrola - Last Filed: 08/02/17 11:34> - Medical Decision Making EKG performed at 0836: Shows sinus bradycardia at 57 beats per minute. SD interval 92. QRS 88. QT/QTc 446/434. No acute ST changes. Discussed and seen by the physician Dr. Gurrola. Patient's labs been reviewed. Chest x-ray is unremarkable for any abnormality. Patient feeling better after nausea medication, meclizine here in emergency room. Patient has been and laboratory. She denies any complaints currently. Patient would like to be discharged home. Patient is advised follow family doctor next 2 days. Advised to return if symptoms increase worsen. Will be given a prescription for meclizine and Zofran to go home with. (Clif Crooks) - Lab Data Lab Results 08/02/17 08/02/17 08/02/17 Range/Units 08:20 08:20 08:20 WBC 11.3 H (3.8-10.6) k/uL RBC 4.54 (3.80-5.40) m/uL Hgb 13.7 (11.4-16.0) gm/dL Hct 41.1 (34.0-46.0) % MCV 90.4 (80.0-100.0) fL MCH 30.2 (25.0-35.0) pg MCHC 33.4 (31.0-37.0) g/dL RDW 13.0 (11.5-15.5) % Plt Count 188 (150-450) k/uL Neutrophils % 42 % Lymphocytes % 36 % Monocytes % 7 % Eosinophils % 13 % Basophils % 0 % Neutrophils # 4.7 (1.3-7.7) k/uL Lymphocytes # 4.1 (1.0-4.8) k/uL Monocytes # 0.8 (0-1.0) k/uL Eosinophils # 1.4 H (0-0.7) k/uL Basophils # 0.0 (0-0.2) k/uL PT (9.0-12.0) sec INR (<1.2) APTT (22.0-30.0) sec Sodium 134 L (137-145) mmol/L Potassium 4.2 (3.5-5.1) mmol/L Chloride 99 (98-107) mmol/L Carbon Dioxide 25 (22-30) mmol/L Anion Gap 10 mmol/L BUN 9 (7-17) mg/dL Creatinine 0.58 (0.52-1.04) mg/dL Est GFR (CKD-EPI)AfAm >90 (>60 ml/min/1.73 sqM) Est GFR (CKD-EPI)NonAf 86 (>60 ml/min/1.73 sqM) Glucose 141 H (74-99) mg/dL Calcium 8.7 (8.4-10.2) mg/dL Total Bilirubin 0.7 (0.2-1.3) mg/dL AST 18 (14-36) U/L ALT 31 (9-52) U/L Alkaline Phosphatase 56 (38-126) U/L Total Creatine Kinase <20 L (30-135) U/L CK-MB (CK-2) 0.3 (0.0-2.4) ng/mL CK-MB (CK-2) Rel Index Troponin I <0.012 (0.000-0.034) ng/mL Total Protein 5.6 L (6.3-8.2) g/dL Albumin 3.4 L (3.5-5.0) g/dL Lipase 125 (23-300) U/L 08/02/17 Range/Units 08:20 WBC (3.8-10.6) k/uL RBC (3.80-5.40) m/uL Hgb (11.4-16.0) gm/dL Hct (34.0-46.0) % MCV (80.0-100.0) fL MCH (25.0-35.0) pg MCHC (31.0-37.0) g/dL RDW (11.5-15.5) % Plt Count (150-450) k/uL Neutrophils % % Lymphocytes % % Monocytes % % Eosinophils % % Basophils % % Neutrophils # (1.3-7.7) k/uL Lymphocytes # (1.0-4.8) k/uL Monocytes # (0-1.0) k/uL Eosinophils # (0-0.7) k/uL Basophils # (0-0.2) k/uL PT 10.7 (9.0-12.0) sec INR 1.1 (<1.2) APTT 21.7 L (22.0-30.0) sec Sodium (137-145) mmol/L Potassium (3.5-5.1) mmol/L Chloride (98-107) mmol/L Carbon Dioxide (22-30) mmol/L Anion Gap mmol/L BUN (7-17) mg/dL Creatinine (0.52-1.04) mg/dL Est GFR (CKD-EPI)AfAm (>60 ml/min/1.73 sqM) Est GFR (CKD-EPI)NonAf (>60 ml/min/1.73 sqM) Glucose (74-99) mg/dL Calcium (8.4-10.2) mg/dL Total Bilirubin (0.2-1.3) mg/dL AST (14-36) U/L ALT (9-52) U/L Alkaline Phosphatase (38-126) U/L Total Creatine Kinase (30-135) U/L CK-MB (CK-2) (0.0-2.4) ng/mL CK-MB (CK-2) Rel Index Troponin I (0.000-0.034) ng/mL Total Protein (6.3-8.2) g/dL Albumin (3.5-5.0) g/dL Lipase (23-300) U/L Disposition Is patient prescribed a controlled substance at d/c from ED?: No Time of Disposition: 11:18 <Clif Crooks - Last Filed: 08/02/17 11:17> <Andrews Gurrola - Last Filed: 08/02/17 11:34> Clinical Impression: Dizziness, Nausea & vomiting Disposition: HOME SELF-CARE Condition: Good Instructions: Dizziness (ED) Additional Instructions: Please use medication as discussed. Please follow-up with family doctor in the next 2 days. Please return to emergency room if the symptoms increase or worsen or for any other concerns. Prescriptions: Meclizine [Antivert] 25 mg PO DAILY 10 Days tab Ondansetron Odt [Zofran ODT] 4 mg PO Q8HR PRN #10 tab PRN Reason: Nausea Referrals: Willie Hopson DO [Primary Care Provider] - 1-2 days
[2017-08-02 08:46] LABS: Basophils % (A) 0 %; Eosinophils # (A) 1.4 k/uL (0-0.7); Eosinophils % (A) 13 %; HCT 41.1 % (34.0-46.0); HGB 13.7 gm/dL (11.4-16.0); Lymphocytes # (A) 4.1 k/uL (1.0-4.8); Lymphocytes % (A) 36 %; MCH 30.2 pg (25.0-35.0); MCHC 33.4 g/dL (31.0-37.0); MCV 90.4 fL (80.0-100.0); Mean Platelet Volume 8.1; Monocytes # (A) 0.8 k/uL (0-1.0); Monocytes % (A) 7 %; Neutrophils # (A) 4.7 k/uL (1.3-7.7); Neutrophils % (A) 42 %; Platelet Count 188 k/uL (150-450); RBC 4.54 m/uL (3.80-5.40); WBC 11.3 k/uL (3.8-10.6)
[2017-08-02 08:57] LABS: INR 1.1 (<1.2); Prothrombin Time 10.7 sec (9.0-12.0)
[2017-08-02 08:58] LABS: ALT 31 U/L (9-52); AST 18 U/L (14-36); Albumin 3.4 g/dL (3.5-5.0); Alkaline Phosphatase 56 U/L (38-126); Anion Gap 10 mmol/L; Blood Urea Nitrogen 9 mg/dL (7-17); Calcium 8.7 mg/dL (8.4-10.2); Carbon Dioxide 25 mmol/L (22-30); Chloride 99 mmol/L (98-107); Glucose 141 mg/dL (74-99); Lipase 125 U/L (23-300); Potassium 4.2 mmol/L (3.5-5.1); Sodium 134 mmol/L (137-145); Total Bilirubin 0.7 mg/dL (0.2-1.3); Total Protein 5.6 g/dL (6.3-8.2)
[2017-08-02 08:59] LABS: Partial Thromboplastin Time 21.7 sec (22.0-30.0)
[2017-08-02 09:11] LABS: Creatine Kinase <20 U/L (30-135)
--- NOTE | 2017-08-02 09:13 | XR ---
EXAMINATION TYPE: XR chest 2V DATE OF EXAM: 08/02/2017 COMPARISON: 08/09/2016 INDICATION: Vomiting nausea TECHNIQUE: Frontal and lateral views of the chest are obtained. FINDINGS: The heart size is normal. The pulmonary vasculature is normal. The lungs are clear. IMPRESSION: 1. No acute pulmonary process. 2. Exam appears stable from comparison.
[2017-08-02] MEDS ORDERED: METOPROLOL TARTRATE 25 MG TAB PO STA (09:19)
[2017-08-02 09:21] LABS: Creatine Kinase MB 0.3 ng/mL (0.0-2.4); Troponin I <0.012 ng/mL (0.000-0.034)
[2017-08-02] MEDS ORDERED: MECLIZINE 12.5 MG TAB PO STA (09:37)
--- NOTE | 2017-08-02 10:43 | CT ---
EXAMINATION TYPE: CT brain wo con DATE OF EXAM: 08/02/2017 HISTORY: Dizziness today CT DLP: 1195 mGycm. Automated Exposure Control for Dose Reduction was Utilized. TECHNIQUE: CT scan of the head is performed without contrast. COMPARISON: CT head August 09, 2016. FINDINGS: There is no acute intracranial hemorrhage or midline shift identified. There is diffuse v entricular and sulcal prominence consistent with diffuse age-related cerebral atrophy. There is low- attenuation in the periventricular white matter consistent with chronic small vessel ischemic change. Mild to moderate eccentric mucosal thickening in the right maxillary sinus is partially imaged. Hype rostosis frontalis is redemonstrated. The visualized globes are intact bilaterally. IMPRESSION: No acute intracranial hemorrhage or midline shift. There is mild to moderate diffuse ag e-related cerebral atrophy and chronic small vessel ischemic change redemonstrated. There is no sign ificant change from prior CT.
[2017-08-02 11:46] VITALS: BP 173/94; PULSE 64; TEMP 97.8
== END 2017-08-02 11:45 | disposition home or self-care (01) ==
LOC: EC 08:08
DX: R42 Dizziness and giddiness (principal); R11.2 Nausea with vomiting, unspecified; R00.1 Bradycardia, unspecified; I20.9 Angina pectoris, unspecified; E78.5 Hyperlipidemia, unspecified; I10 Essential (primary) hypertension; Z96.653 Presence of artificial knee joint, bilateral; Z90.710 Acquired absence of both cervix and uterus; Z98.890 Other specified postprocedural states; Z79.899 Other long term (current) drug therapy
CPT/HCPCS: 36415; 80053; 82550; 82553; 83690; 84484; 85025; 85610; 85730; 71046; 70450; 99285; 96374; 96376; 96361 ×3; J2405

== ENCOUNTER 2017-08-02 21:24 | Observation (INO) | payer MEDICARE ==
[2017-08-02] MEDS ORDERED: ONDANSETRON 4 MG/2 ML VIAL IVP STA (22:14)
[2017-08-02] MEDS ORDERED: MECLIZINE 12.5 MG TAB PO STA (22:14)
--- NOTE | 2017-08-02 22:23 | ED ---
Dizziness HPI - General Chief Complaint: Nausea/Vomiting/Diarrhea Stated Complaint: Dizziness Time Seen by Provider: 08/02/17 21:51 Source: patient, EMS Mode of arrival: EMS Limitations: no limitations - History of Present Illness Initial Comments: This patient is an 82-year-old woman who returns to the hospital to be reevaluated for which she is calling dizziness and also nausea and vomiting associated with that. Patient states that her symptoms began this morning at 7: 30 AM. She noticed that when she woke up and attempted to get out of bed it felt like everything was spinning, and she is terming this dizziness. She states that she is also having nausea and vomiting when this acts up. She notes that the symptoms get better with remaining still or with closing her eyes. She states the symptoms get worse if she attempts to move or if she turns her head. She was seen here in the morning and she was given meclizine and symptoms did improve a little bit, however things worsened this afternoon. She attempted to take the medication and then had some vomiting afterward. She was not able to walk tonight even using her walker due to the dizziness. Patient denies any associated symptoms other than above. She is not having headache or any other ear symptoms. No change in hearing. She has not had change in vision. No neurologic symptoms. No chest pain or dyspnea. No blood in the bowel movements or dark tarry stool. No blood with vomiting. MD Complaint: dizziness -: hour(s) (15) Timing: sudden onset, awoke with symptoms Description: "room spinning" History of Same: No History of Trauma: No Severity: severe Improves With: remaining still, other (Closing her eyes) Worsens With: movement Associated Symptoms: denies other symptoms - Related Data Home Medications Medication Instructions Recorded Confirmed Ezetimibe/Simvastatin [Vytorin 1 tab PO DAILY 08/09/16 08/02/17 10-40 mg Tablet] Metoprolol Succinate (ER) [Toprol 25 mg PO DAILY 08/09/16 08/02/17 XL] Previous Rx's Medication Instructions Recorded Aspirin 81 mg PO DAILY #1 chewable 08/10/16 Meclizine [Antivert] 25 mg PO DAILY 10 Days tab 08/02/17 Ondansetron Odt [Zofran ODT] 4 mg PO Q8HR PRN #10 tab 08/02/17 Allergies Allergy/AdvReac Type Severity Reaction Status Date / Time No Known Allergies Allergy Verified 08/02/17 21:41 Review of Systems ROS Statement: Those systems with pertinent positive or pertinent negative responses have been documented in the HPI. ROS Other: All systems not noted in ROS Statement are negative. Constitutional: Denies: fever, weakness Eyes: Denies: vision change ENT: Denies: ear pain, hearing loss Respiratory: Denies: cough, dyspnea Cardiovascular: Denies: chest pain, palpitations, edema, syncope Gastrointestinal: Reports: nausea, vomiting. Denies: abdominal pain, diarrhea, hematemesis, melena, hematochezia Genitourinary: Denies: dysuria, hematuria Musculoskeletal: Denies: back pain Skin: Denies: rash Neurological: Denies: headache, weakness, numbness Past Medical History Past Medical History: Chest Pain / Angina, Hyperlipidemia, Hypertension, Osteoarthritis (OA), Thyroid Disorder Additional Past Medical History / Comment(s): leonor cataracts, past fall broke rt leg, stress test, growth(hard spot in mouth unable to wear denture) History of Any Multi-Drug Resistant Organisms: None Reported Past Surgical History: Back Surgery, Hysterectomy, Orthopedic Surgery Additional Past Surgical History / Comment(s): thyroidectomy,edg/colonoscopy, leonor knee arthroscopies, leonor knee arthroplasties, sx to repair broken fibula. Past Anesthesia/Blood Transfusion Reactions: Motion Sickness Additional Past Anesthesia/Blood Transfusion Reaction / Comment(s): blood transfusion-no reaction Past Psychological History: No Psychological Hx Reported Smoking Status: Never smoker Past Alcohol Use History: None Reported Past Drug Use History: None Reported - Past Family History Mother Family Medical History: Cancer Additional Family Medical History / Comment(s): breast cancer Sister(s) Family Medical History: Cancer Additional Family Medical History / Comment(s): breast cancer Father Family Medical History: Myocardial Infarction ([place]) Additional Family Medical History / Comment(s): from [place] at age 62 General Exam Limitations: no limitations General appearance: alert, in no apparent distress Head exam: Present: atraumatic, normocephalic Eye exam: Present: normal appearance, nystagmus. Absent: PERRL, EOMI, scleral icterus, conjunctival injection ENT exam: Present: normal oropharynx Respiratory exam: Present: normal lung sounds bilaterally. Absent: respiratory distress, wheezes, rales, rhonchi, stridor Cardiovascular Exam: Present: regular rate, normal rhythm, normal heart sounds. Absent: systolic murmur, diastolic murmur, rubs, gallop GI/Abdominal exam: Present: soft. Absent: distended, tenderness, guarding, rebound, mass Extremities exam: Present: normal inspection, normal capillary refill. Absent: pedal edema, calf tenderness Neurological exam: Present: alert, CN II-XII intact. Absent: motor sensory deficit Skin exam: Present: warm, dry, intact, normal color. Absent: rash Course Vital Signs 08/02/17 08/02/17 08/02/17 21:32 22:31 23:30 Temperature 97 F L Pulse Rate 77 60 56 L Respiratory 18 18 18 Rate Blood Pressure 158/124 163/74 157/72 O2 Sat by Pulse 98 95 95 Oximetry Medical Decision Making - Lab Data Result diagrams: 08/02/17 22:30 08/02/17 22:30 Lab Results 08/02/17 08/02/17 Range/Units 22:30 22:30 WBC 9.9 (3.8-10.6) k/uL RBC 4.49 (3.80-5.40) m/uL Hgb 13.7 (11.4-16.0) gm/dL Hct 40.5 (34.0-46.0) % MCV 90.2 (80.0-100.0) fL MCH 30.6 (25.0-35.0) pg MCHC 33.9 (31.0-37.0) g/dL RDW 13.0 (11.5-15.5) % Plt Count 166 (150-450) k/uL Neutrophils % 87 % Lymphocytes % 8 % Monocytes % 3 % Eosinophils % 1 % Basophils % 0 % Neutrophils # 8.6 H (1.3-7.7) k/uL Lymphocytes # 0.8 L (1.0-4.8) k/uL Monocytes # 0.3 (0-1.0) k/uL Eosinophils # 0.1 (0-0.7) k/uL Basophils # 0.0 (0-0.2) k/uL Sodium 134 L (137-145) mmol/L Potassium 4.3 (3.5-5.1) mmol/L Chloride 98 (98-107) mmol/L Carbon Dioxide 27 (22-30) mmol/L Anion Gap 9 mmol/L BUN 9 (7-17) mg/dL Creatinine 0.50 L (0.52-1.04) mg/dL Est GFR (CKD-EPI)AfAm >90 (>60 ml/min/1.73 sqM) Est GFR (CKD-EPI)NonAf 90 (>60 ml/min/1.73 sqM) Glucose 125 H (74-99) mg/dL Calcium 8.7 (8.4-10.2) mg/dL Disposition Clinical Impression: Nausea & vomiting, Vertigo Disposition: ADMITTED IP TO THIS HOSP Condition: Fair Is patient prescribed a controlled substance at d/c from ED?: No Referrals: Willie Hopson DO [Primary Care Provider] - 1-2 days
[2017-08-02 22:39] LABS: Basophils % (A) 0 %; Eosinophils # (A) 0.1 k/uL (0-0.7); Eosinophils % (A) 1 %; HCT 40.5 % (34.0-46.0); HGB 13.7 gm/dL (11.4-16.0); Lymphocytes # (A) 0.8 k/uL (1.0-4.8); Lymphocytes % (A) 8 %; MCH 30.6 pg (25.0-35.0); MCHC 33.9 g/dL (31.0-37.0); MCV 90.2 fL (80.0-100.0); Mean Platelet Volume 7.2; Monocytes # (A) 0.3 k/uL (0-1.0); Monocytes % (A) 3 %; Neutrophils # (A) 8.6 k/uL (1.3-7.7); Neutrophils % (A) 87 %; Platelet Count 166 k/uL (150-450); RBC 4.49 m/uL (3.80-5.40); WBC 9.9 k/uL (3.8-10.6)
[2017-08-02 22:50] LABS: Anion Gap 9 mmol/L; Blood Urea Nitrogen 9 mg/dL (7-17); Calcium 8.7 mg/dL (8.4-10.2); Carbon Dioxide 27 mmol/L (22-30); Chloride 98 mmol/L (98-107); Glucose 125 mg/dL (74-99); Potassium 4.3 mmol/L (3.5-5.1); Sodium 134 mmol/L (137-145)
[2017-08-02] MEDS ORDERED: PROCHLORPERAZINE 5 MG TAB PO PRN (23:50)
[2017-08-02] MEDS ORDERED: NALOXONE 0.4 MG/ML 1 ML VIAL IV PRN (23:50)
[2017-08-02] MEDS ORDERED: ONDANSETRON 4 MG/2 ML VIAL IVP PRN (23:50)
[2017-08-02] MEDS ORDERED: PROCHLORPERAZINE SUPPOSITORY 25 MG SUPP RECTAL PRN (23:50)
[2017-08-02] MEDS ORDERED: PROCHLORPERAZINE 5 MG TAB PO STA (23:53)
[2017-08-03] MEDS: SODIUM CHLORIDE 0.9% 1,000 ML IV SCH ×2 (00:08→22:57)
[2017-08-03 01:08] VITALS: BMI 27.6
[2017-08-03] MEDS ORDERED: ONDANSETRON ODT 4 MG TAB PO PRN (15:39)
--- NOTE | 2017-08-03 16:13 | HP ---
HISTORY AND PHYSICAL DATE OF ADMISSION: 08/02/17 DATE OF SERVICE: 08/03/17 PRESENTING COMPLAINT: Dizziness. HISTORY OF PRESENTING COMPLAINT: This is a pleasant 82-year-old patient of Dr. Hopson. Patient's chronic stable medical condition, hypertension, hyperlipidemia, and questionable angina. The patient yesterday morning at 7:00 am woke up, was feeling very dizzy when she got out of bed, had some slight earache. No fever. No chills. Was getting dizzy every time she would move around. No double vision. No nausea, vomiting. No headache. No difficulty in speech or vision. Just not feeling well. Lying in bed and she was admitted for the same. REVIEW OF SYSTEMS: CONSTITUTIONAL: None. HEENT: As above. RESPIRATORY: None. CARDIOVASCULAR: None. GASTROINTESTINAL: Denies. : None. MUSCULOSKELETAL: Arthritic pain in the joints. DERMATOLOGICAL, HEMATOLOGIC, LYMPHATICS: None. PSYCHIATRY: None. NEUROLOGICAL: As above. PAST MEDICAL HISTORY: Chest pain, hyperlipidemia, hypertension, bilateral cataracts, fracture to the right leg after fall, growth spot in the upper palate. PAST SURGICAL HISTORY: Back surgery, hysterectomy, thyroidectomy, bilateral knee arthroscopy, bilateral knee arthroplasties, surgery for fibula. SOCIAL HISTORY: No smoking. No alcohol. Anxiety. FAMILY HISTORY: Breast cancer. PHYSICAL EXAMINATION: VITAL SIGNS ON PRESENTATION: Temperature 97, pulse 77, respirations 18, blood pressure 150/124, repeat was down to 136/56, pulse ox 98% on room air. GENERAL APPEARANCE: Average build, lying in bed, tired appearing. EYES: Pupils equal. Conjunctivae normal. HEENT: External appearance of nose and ears normal. Oral cavity normal. NECK: JVD not raised. Mass not palpable. RESPIRATORY: Effort normal. Lungs are clear. CARDIOVASCULAR: 1st and 2nd sounds normal. No edema. ABDOMEN: Soft, nontender. Liver and spleen not palpable. LYMPHATIC: No lymph node palpable in neck or axillae. PSYCHIATRY: Alert and oriented x3. Mood and affect tired-appearing. NEUROLOGICAL: Pupils equal. Cranial nerves grossly intact. Power and sensation grossly intact. INVESTIGATIONS: White count 9.9, potassium 4.3, BUN and creatinine are normal. ASSESSMENT: 1. Acute vertigo. In this case the differential includes either benign paroxysmal positional vertigo versus acute labyrinthitis given that the patient is having some discomfort in the left ear, though this can sometimes be interfering with basic activity that patient every time she moves, she gets worse. 2. Essential hypertension. 3. Hyperlipidemia. 4. Primary osteoarthritis. PLAN: At this point, patient started on Antivert. See how she does. Home medications will be resumed. May perform the Hallpike/Vladimir maneuver if she does not respond to the medications. Copy Dr. Hopson. MMCLIFFORDL / JUNIORN: [id number] /
[2017-08-03] MEDS: METOPROLOL SUCCINATE (ER) 25 MG TAB.ER.24H PO SCH (16:20)
[2017-08-03] MEDS: MECLIZINE 12.5 MG TAB PO SCH ×3 (16:20→22:58)
[2017-08-03] MEDS: ASPIRIN 81 MG PO SCH (16:20)
[2017-08-03] MEDS: ENOXAPARIN 40 MG/0.4 ML SYRINGE SQ SCH (16:20)
[2017-08-03] MEDS: ATORVASTATIN 20 MG TAB PO SCH (16:20)
[2017-08-03] MEDS: EZETIMIBE 10 MG TAB PO SCH (16:20)
[2017-08-04 06:30] VITALS: TEMP 98.4
[2017-08-04] MEDS: EZETIMIBE 10 MG TAB PO SCH (08:06)
[2017-08-04] MEDS: ENOXAPARIN 40 MG/0.4 ML SYRINGE SQ SCH (08:06)
[2017-08-04] MEDS: METOPROLOL SUCCINATE (ER) 25 MG TAB.ER.24H PO SCH (08:06)
[2017-08-04] MEDS: MECLIZINE 12.5 MG TAB PO SCH ×3 (08:06→17:24)
[2017-08-04] MEDS: ASPIRIN 81 MG PO SCH (08:06)
[2017-08-04] MEDS: ATORVASTATIN 20 MG TAB PO SCH (08:07)
[2017-08-04 14:27] VITALS: BP 121/73; PULSE 54; RESP 16
--- NOTE | 2017-08-05 10:24 | DS ---
DISCHARGE SUMMARY DATE OF ADMISSION: 08/02/2017. DATE OF DISCHARGE: 08/04/2017. FINAL DIAGNOSES: 1. Acute dizziness from acute labyrinthitis. 2. Essential hypertension. 3. Hyperlipidemia. 4. Primary osteoarthritis. HOSPITAL COURSE: This patient presented with acute dizziness with some discomfort in the left ear. The patient was put on Antivert schedule. Doing much better by the time of discharge. Tolerating a diet. Nausea and vomiting had all resolved. PHYSICAL EXAMINATION: Lungs are clear. Cardiovascular, 1st and 2nd sounds normal. DISCHARGE MEDICATIONS: 1. Vytorin 10/40 one tab p.o. daily. 2. Toprol-XL 25 mg p.o. daily. 3. Aspirin 81 mg p.o. daily. 4. Zofran 4 mg every 8 hours p.r.n. 5. Antivert 12.5 p.o. 4 times a day for 8 doses then every 6 hours p.r.n. FOLLOWUP: Follow up with Dr. Hopson on August 09, 2017. MMODL / IJN: [id number] /
== END 2017-08-04 18:27 | disposition home or self-care (01) ==
LOC: EC 21:24 → 4MS4W 23:50 → 5MS5E 08-03 21:32 → 4MS4W 08-03 21:32
PROVIDERS: ADMIT Hospitalist; ATTEND Hospitalist
DX: H83.02 Labyrinthitis, left ear (principal); R11.2 Nausea with vomiting, unspecified; R19.7 Diarrhea, unspecified; E78.5 Hyperlipidemia, unspecified; F41.9 Anxiety disorder, unspecified; I10 Essential (primary) hypertension; M19.91 Primary osteoarthritis, unspecified site; Z79.82 Long term (current) use of aspirin; Z79.899 Other long term (current) drug therapy; Z90.710 Acquired absence of both cervix and uterus; Z96.653 Presence of artificial knee joint, bilateral; Z82.49 Family history of ischemic heart disease and other diseases of the circulatory system; Z80.3 Family history of malignant neoplasm of breast; Z98.890 Other specified postprocedural states
CPT/HCPCS: 96361 ×3; 96372 ×2; 96374; 99285; 36415; 94760; 80048; 85025; G0378 ×3; S0183; J2405; J1650 ×2

== ENCOUNTER 2020-07-21 07:07 | Observation (INO) | payer MEDICARE ==
--- NOTE | 2020-07-21 07:40 | ED ---
General Adult HPI - General Chief complaint: Extremity Injury, Upper Stated complaint: Left arm pain Time Seen by Provider: 07/21/20 07:10 Source: patient, family, RN notes reviewed Mode of arrival: wheelchair Limitations: no limitations - History of Present Illness Initial comments: This is a 85-year-old female history of heart disease hypertension and hyperlipidemia who presents with complaints of left arm pain she states is achy in nature been going on for about 3 weeks intermittently but over last several days his been constant last night it was so bad she states it kept her awake she states is 10/10 severity she points to her mid to lateral upper left arm he states she's had no chest pain palpitations shortness of breath she does use a walker to walk she does not recall any incident where she may have this stopped. 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 He does state that the pain somewhat increases with certain movements. No other complaints or modifying factors at this time - Related Data Home Medications Medication Instructions Recorded Confirmed Ibuprofen [Advil] 200 mg PO Q8H PRN 07/21/20 07/21/20 Allergies Allergy/AdvReac Type Severity Reaction Status Date / Time No Known Allergies Allergy Verified 07/21/20 08:51 Review of Systems ROS Statement: Those systems with pertinent positive or pertinent negative responses have been documented in the HPI. ROS Other: All systems not noted in ROS Statement are negative. Past Medical History Past Medical History: Chest Pain / Angina, Hyperlipidemia, Hypertension Additional Past Medical History / Comment(s): leonor cataracts, past fall broke rt leg, stress test, growth(hard spot in mouth unable to wear denture) History of Any Multi-Drug Resistant Organisms: None Reported Past Surgical History: Back Surgery, Hysterectomy, Orthopedic Surgery Additional Past Surgical History / Comment(s): thyroidectomy,edg/colonoscopy, leonor knee arthroscopies, leonor knee arthroplasties, sx to repair broken fibula. Past Anesthesia/Blood Transfusion Reactions: Motion Sickness Additional Past Anesthesia/Blood Transfusion Reaction / Comment(s): blood transfusion-no reaction Past Psychological History: Anxiety Smoking Status: Never smoker Past Alcohol Use History: None Reported Past Drug Use History: None Reported - Past Family History Mother Family Medical History: Cancer Additional Family Medical History / Comment(s): breast cancer Sister(s) Family Medical History: Cancer Additional Family Medical History / Comment(s): breast cancer Father Family Medical History: Myocardial Infarction ([place]) Additional Family Medical History / Comment(s): from [place] at age 62 General Exam - General Exam Comments Initial Comments: This is a well-developed well-nourished awake alert oriented 3 female Limitations: no limitations General appearance: alert, in no apparent distress Head exam: Present: atraumatic, normocephalic, normal inspection Eye exam: Present: normal appearance, PERRL, EOMI. Absent: scleral icterus, conjunctival injection, periorbital swelling ENT exam: Present: normal exam, mucous membranes moist Neck exam: Present: normal inspection, tenderness (Mild tenderness palpation along the left trapezius musculature and lateral neck musculature extending to the left shoulder), full ROM. Absent: meningismus, lymphadenopathy Respiratory exam: Present: normal lung sounds bilaterally. Absent: respiratory distress, wheezes, rales, rhonchi, stridor Cardiovascular Exam: Present: regular rate, normal rhythm, normal heart sounds. Absent: systolic murmur, diastolic murmur, rubs, gallop, clicks GI/Abdominal exam: Present: soft, normal bowel sounds. Absent: distended, tenderness, guarding, rebound, rigid Extremities exam: Present: normal inspection, full ROM, tenderness (Some tenderness to palpation on the left lateral arm over the trapezius.), normal ca pillary refill. Absent: pedal edema, joint swelling, calf tenderness Back exam: Present: normal inspection Neurological exam: Present: alert, oriented X3, CN II-XII intact Psychiatric exam: Present: normal affect, normal mood Skin exam: Present: warm, dry, intact, normal color. Absent: rash Course Vital Signs 07/21/20 07/21/20 07/21/20 07:10 09:35 10:40 Temperature 97.7 F Pulse Rate 94 76 74 Respiratory 18 18 20 Rate Blood Pressure 139/78 160/80 142/73 O2 Sat by Pulse 94 L 95 94 L Oximetry EKG Findings - EKG Results: EKG: interpreted by ERMD (Sinus rhythm with PACs rate 85. Interval 186 QRS 88 QT since QTC 380/452 nonspecific T-wave configuration this is compared with an EKG dated 08/02/17) Medical Decision Making - Lab Data Result diagrams: 07/21/20 08:05 07/21/20 08:05 Lab Results 07/21/20 07/21/20 07/21/20 Range/Units 08:05 08:05 08:05 WBC 20.2 H (3.8-10.6) k/uL RBC 4.74 (3.80-5.40) m/uL Hgb 14.1 (11.4-16.0) gm/dL Hct 42.4 (34.0-46.0) % MCV 89.3 (80.0-100.0) fL MCH 29.6 (25.0-35.0) pg MCHC 33.2 (31.0-37.0) g/dL RDW 12.7 (11.5-15.5) % Plt Count 273 (150-450) k/uL MPV 7.2 Neutrophils % 84 % Lymphocytes % 4 % Monocytes % 7 % Eosinophils % 4 % Basophils % 0 % Neutrophils # 17.0 H (1.3-7.7) k/uL Lymphocytes # 0.8 L (1.0-4.8) k/uL Monocytes # 1.5 H (0-1.0) k/uL Eosinophils # 0.7 (0-0.7) k/uL Basophils # 0.1 (0-0.2) k/uL Sodium 135 L (137-145) mmol/L Potassium 3.8 (3.5-5.1) mmol/L Chloride 101 (98-107) mmol/L Carbon Dioxide 29 (22-30) mmol/L Anion Gap 5 mmol/L BUN 19 H (7-17) mg/dL Creatinine 0.56 (0.52-1.04) mg/dL Est GFR (CKD-EPI)AfAm >90 (>60 ml/min/1.73 sqM) Est GFR (CKD-EPI)NonAf 85 (>60 ml/min/1.73 sqM) Glucose 104 H (74-99) mg/dL Calcium 8.5 (8.4-10.2) mg/dL Magnesium 1.8 (1.6-2.3) mg/dL Total Bilirubin 0.6 (0.2-1.3) mg/dL AST 21 (14-36) U/L ALT 11 (4-34) U/L Alkaline Phosphatase 92 (38-126) U/L Creatine Kinase 25 L (30-135) U/L Troponin I 0.080 H* (0.000-0.034) ng/mL C-Reactive Protein 6.0 H (<1.0) mg/dL Total Protein 5.7 L (6.3-8.2) g/dL Albumin 2.8 L (3.5-5.0) g/dL Urine Color Urine Appearance (Clear) Urine pH (5.0-8.0) Ur Specific [place] (1.001-1.035) Urine Protein (Negative) Urine Glucose (UA) (Negative) Urine Ketones (Negative) Urine Blood (Negative) Urine Nitrite (Negative) Urine Bilirubin (Negative) Urine Urobilinogen (<2.0) mg/dL Ur Leukocyte Esterase (Negative) Urine RBC (0-5) /hpf Urine WBC (0-5) /hpf Ur Squamous Epith Cells (0-4) /hpf Urine Bacteria (None) /hpf Urine Mucus (None) /hpf 07/21/20 Range/Units 09:07 WBC (3.8-10.6) k/uL RBC (3.80-5.40) m/uL Hgb (11.4-16.0) gm/dL Hct (34.0-46.0) % MCV (80.0-100.0) fL MCH (25.0-35.0) pg MCHC (31.0-37.0) g/dL RDW (11.5-15.5) % Plt Count (150-450) k/uL MPV Neutrophils % % Lymphocytes % % Monocytes % % Eosinophils % % Basophils % % Neutrophils # (1.3-7.7) k/uL Lymphocytes # (1.0-4.8) k/uL Monocytes # (0-1.0) k/uL Eosinophils # (0-0.7) k/uL Basophils # (0-0.2) k/uL Sodium (137-145) mmol/L Potassium (3.5-5.1) mmol/L Chloride (98-107) mmol/L Carbon Dioxide (22-30) mmol/L Anion Gap mmol/L BUN (7-17) mg/dL Creatinine (0.52-1.04) mg/dL Est GFR (CKD-EPI)AfAm (>60 ml/min/1.73 sqM) Est GFR (CKD-EPI)NonAf (>60 ml/min/1.73 sqM) Glucose (74-99) mg/dL Calcium (8.4-10.2) mg/dL Magnesium (1.6-2.3) mg/dL Total Bilirubin (0.2-1.3) mg/dL AST (14-36) U/L ALT (4-34) U/L Alkaline Phosphatase (38-126) U/L Creatine Kinase (30-135) U/L Troponin I (0.000-0.034) ng/mL C-Reactive Protein (<1.0) mg/dL Total Protein (6.3-8.2) g/dL Albumin (3.5-5.0) g/dL Urine Color Yellow Urine Appearance Cloudy H (Clear) Urine pH 6.0 (5.0-8.0) Ur Specific [place] 1.028 (1.001-1.035) Urine Protein 1+ H (Negative) Urine Glucose (UA) Negative (Negative) Urine Ketones Trace H (Negative) Urine Blood Trace H (Negative) Urine Nitrite Positive H (Negative) Urine Bilirubin Negative (Negative) Urine Urobilinogen 2.0 (<2.0) mg/dL Ur Leukocyte Esterase Large H (Negative) Urine RBC 4 (0-5) /hpf Urine WBC 73 H (0-5) /hpf Ur Squamous Epith Cells 27 H (0-4) /hpf Urine Bacteria Many H (None) /hpf Urine Mucus Few H (None) /hpf Critical Care Time Critical Care Time: Yes Total Critical Care Time: 31 Critical Care Time: Critical care time includes initial presentation with history physical labs x- rays multiple reevaluation the patient also discussed with the patient family discussion with the main physician admission orders and documentation of the above. Disposition Clinical Impression: Atypical chest pain, Elevated troponin, Urinary tract infection, Leukocytosis, Dehydration, Left arm pain Disposition: ADMITTED IP TO THIS HOSP Condition: Fair Referrals: Ronna Wall MD [Primary Care Provider] - 1-2 days
[2020-07-21] MEDS ORDERED: KETOROLAC 15 MG/ML 1 ML VIAL IVP STA (07:41)
--- NOTE | 2020-07-21 07:59 | XR ---
EXAMINATION TYPE: XR chest 2V DATE OF EXAM: 07/21/2020 COMPARISON: Chest x-ray 08/02/2017 HISTORY: Left arm pain TECHNIQUE: Frontal and lateral views of the chest are obtained. FINDINGS: Lung volumes are low. There is no pneumothorax or pleural effusion. Aorta is dense. Cardia c mediastinal silhouette is stable accounting for differences in technique. No evident airspace disea se. Patient is rotated. IMPRESSION: No acute cardiopulmonary process. Expiratory rotated exam.
--- NOTE | 2020-07-21 08:02 | XR ---
Cervical spine HISTORY: Pain in left arm 5 views of the cervical spine, correlation to CT neck 10/13/2013 Bone mineralization is reduced. There is a kyphosis centered at C4-5, apparent ankylosis noted, there is multilevel spondylosis, loss of disc height is present greatest at C4-5, C3-4, C5-6, C7-T1 not we ll seen. There is multilevel facet arthropathy change. Multilevel foraminal encroachment is noted on the oblique views. Anterolisthesis grade 1 C2-3, C3-4. Visualized cervical vertebral bodies show pres erved height. IMPRESSION: Degenerative disc disease, foraminal encroachment, osteopenia, facet arthropathy with moncada itations as described. Cervical MRI may be of benefit.
--- NOTE | 2020-07-21 08:04 | XR ---
Left shoulder HISTORY: Pain 3 views of left shoulder Bone mineralization is reduced. Mild arthropathy present at the acromioclavicular joint. There are ov erlying artifacts. Alignment and joint spaces are maintained. Left lung apex as visualized is normal. Spurring is present with joint space loss, subchondral cyst formation and eburnation at the glenohum eral joint. Calcification present near the insertion level of the rotator cuff tendon on the humeral head. IMPRESSION: Osteoarthritis, there may be calcific tendinitis.
[2020-07-21 08:14] LABS: Basophils # (A) 0.1 k/uL (0-0.2); Basophils % (A) 0 %; Eosinophils # (A) 0.7 k/uL (0-0.7); Eosinophils % (A) 4 %; HCT 42.4 % (34.0-46.0); HGB 14.1 gm/dL (11.4-16.0); Lymphocytes # (A) 0.8 k/uL (1.0-4.8); Lymphocytes % (A) 4 %; MCH 29.6 pg (25.0-35.0); MCHC 33.2 g/dL (31.0-37.0); MCV 89.3 fL (80.0-100.0); Mean Platelet Volume 7.2; Monocytes # (A) 1.5 k/uL (0-1.0); Monocytes % (A) 7 %; Neutrophils % (A) 84 %; Platelet Count 273 k/uL (150-450); RBC 4.74 m/uL (3.80-5.40); RDW 12.7 % (11.5-15.5); WBC 20.2 k/uL (3.8-10.6)
[2020-07-21 08:29] LABS: ALT 11 U/L (4-34); AST 21 U/L (14-36); African American GFR (CKD) >90 (>60 ml/min/1.73 sqM); Albumin 2.8 g/dL (3.5-5.0); Alkaline Phosphatase 92 U/L (38-126); Anion Gap 5 mmol/L; Blood Urea Nitrogen 19 mg/dL (7-17); Calcium 8.5 mg/dL (8.4-10.2); Carbon Dioxide 29 mmol/L (22-30); Chloride 101 mmol/L (98-107); Creatine Kinase 25 U/L (30-135); Glucose 104 mg/dL (74-99); Magnesium 1.8 mg/dL (1.6-2.3); Non-African American GFR(CKD) 85 (>60 ml/min/1.73 sqM); Potassium 3.8 mmol/L (3.5-5.1); Sodium 135 mmol/L (137-145); Total Bilirubin 0.6 mg/dL (0.2-1.3); Total Protein 5.7 g/dL (6.3-8.2)
[2020-07-21 09:34] LABS: Appearance,Urine Cloudy (Clear); Bacteria,Urine Many /hpf; Bilirubin,Urine Negative (Negative); Blood,Urine Trace (Negative); Color,Urine Yellow; Glucose,Urine (UA) Negative (Negative); Ketones,Urine Trace (Negative); Leukocyte Esterase,Urine Large (Negative); Mucus,Urine Few /hpf; Nitrite,Urine Positive (Negative); Protein,Urine 1+ (Negative); RBC,Urine 4 /hpf (0-5); Specific Gravity,Urine 1.028 (1.001-1.035); Squamous Epithelial Cell,Urine 27 /hpf (0-4); WBC,Urine 73 /hpf (0-5)
[2020-07-21] MEDS ORDERED: cefTRIAXone IN SWFI 1,000 MG/10 ML SYRINGE IVP STA (09:41)
[2020-07-21] MEDS ORDERED: NITROGLYCERIN SL TABS 0.4 MG TAB SUBLINGUAL PRN (10:56)
[2020-07-21] MEDS ORDERED: HEPARIN SODIUM 1,000 UN/ML (10ML VL) IV ONE (10:56)
[2020-07-21] MEDS: HEPARIN SOD,PORK IN 0.45% NACL 25,000 UNIT in 0.45% NACL 1 250ML.BAG IV SCH (11:12)
[2020-07-21] MEDS: SODIUM CHLORIDE 0.9% 1,000 ML IV SCH ×2 (11:14→22:00)
--- NOTE | 2020-07-21 12:57 | P.HPIM ---
History of Present Illness H&P Date: 07/21/20 Vandana Bonilla, is an 85-year-old female who presented to [facility] emergency room with a chief complaint of pain in the left arm that started several days ago but has been worse in the last 2 days, patient describes a severe pain in the mid left arm area she denies any fall or injury she denies any other complaints no chest pain no dizziness no shortness of breath no diaphoresis no nausea or vomiting. She was evaluated in the emergency room vital examination on presentation reveals a temperature of 97.7 pulse 94 respiration 18 blood pressure 139/78 pulse ox 94% on room air. Laboratory data in the emergency room revealed a white blood count of 20.2 hemoglobin 14.1 platelet count 273 sodium 135 potassium 3.8 chloride 101 CO2 29 BUN 19 creatinine 0.56 troponin was mildly elevated at 0.080 C-reactive protein was elevated at 6.0 urine analysis revealed evidence of urinary tract infection coronavirus PCR was negative. Chest x-ray was done in the emergency room and revealed no acute cardiopulmonary process, EKG was done in the emergency room and revealed sinus rhythm with T-wave abnormality in the anterior leads, left shoulder x-ray revealed evidence of osteoarthritis and possible calcific tendinitis, cervical spine x-ray revealed evidence of degenerative disc disease and foraminal encroachment and facet arthropathy. Patient was admitted to telemetry floor cardiology consultation was requested Past Medical History Past Medical History: Chest Pain / Angina, Hyperlipidemia, Hypertension Additional Past Medical History / Comment(s): leonor cataracts, past fall broke rt leg, stress test, growth(hard spot in mouth unable to wear denture) History of Any Multi-Drug Resistant Organisms: None Reported Past Surgical History: Back Surgery, Hysterectomy, Orthopedic Surgery Additional Past Surgical History / Comment(s): thyroidectomy,edg/colonoscopy, leonor knee arthroscopies, leonor knee arthroplasties, sx to repair broken fibula. Past Anesthesia/Blood Transfusion Reactions: Motion Sickness Additional Past Anesthesia/Blood Transfusion Reaction / Comment(s): blood transfusion-no reaction Past Psychological History: Anxiety Smoking Status: Never smoker Past Alcohol Use History: None Reported Past Drug Use History: None Reported - Past Family History Mother Family Medical History: Cancer Additional Family Medical History / Comment(s): breast cancer Sister(s) Family Medical History: Cancer Additional Family Medical History / Comment(s): breast cancer Father Family Medical History: Myocardial Infarction ([place]) Additional Family Medical History / Comment(s): from [place] at age 62 Medications and Allergies Home Medications Medication Instructions Recorded Confirmed Type Ibuprofen [Advil] 200 mg PO Q8H PRN 07/21/20 07/21/20 History Allergies Allergy/AdvReac Type Severity Reaction Status Date / Time No Known Allergies Allergy Verified 07/21/20 08:51 Physical Exam Vitals: Vital Signs Temp Pulse Resp BP Pulse Ox 07/21/20 11:47 76 18 156/80 94 L 07/21/20 10:40 74 20 142/73 94 L 07/21/20 09:35 76 18 160/80 95 07/21/20 07:10 97.7 F 94 18 139/78 94 L Intake and Output 07/20/20 07/21/20 07/21/20 22:59 06:59 14:59 Other: Weight 73.028 kg In general patient is alert and oriented ?-3 in no distress HEENT head normocephalic and atraumatic Neck is supple no JVD no goiter no lymphadenopathy no carotid bruit Chest examination is clear to auscultation no crackles no wheezing Cardiac exam reveals regular heart sounds S1 and S2 no gallops no murmurs Abdomen is soft nontender no organomegaly with normal bowel sounds Extremity exam reveals no edema no cyanosis or clubbing Neurological examination reveals no gross focal deficits Results CBC & Chem 7: 07/21/20 08:05 07/21/20 08:05 Labs: Abnormal Lab Results - Last 24 Hours (Table) 07/21/20 07/21/20 07/21/20 Range/Units 08:05 08:05 08:05 WBC 20.2 H (3.8-10.6) k/uL Neutrophils # 17.0 H (1.3-7.7) k/uL Lymphocytes # 0.8 L (1.0-4.8) k/uL Monocytes # 1.5 H (0-1.0) k/uL Sodium 135 L (137-145) mmol/L BUN 19 H (7-17) mg/dL Glucose 104 H (74-99) mg/dL Creatine Kinase 25 L (30-135) U/L Troponin I 0.080 H* (0.000-0.034) ng/mL C-Reactive Protein 6.0 H (<1.0) mg/dL Total Protein 5.7 L (6.3-8.2) g/dL Albumin 2.8 L (3.5-5.0) g/dL Urine Appearance (Clear) Urine Protein (Negative) Urine Ketones (Negative) Urine Blood (Negative) Urine Nitrite (Negative) Ur Leukocyte Esterase (Negative) Urine WBC (0-5) /hpf Ur Squamous Epith Cells (0-4) /hpf Urine Bacteria (None) /hpf Urine Mucus (None) /hpf 07/21/20 Range/Units 09:07 WBC (3.8-10.6) k/uL Neutrophils # (1.3-7.7) k/uL Lymphocytes # (1.0-4.8) k/uL Monocytes # (0-1.0) k/uL Sodium (137-145) mmol/L BUN (7-17) mg/dL Glucose (74-99) mg/dL Creatine Kinase (30-135) U/L Troponin I (0.000-0.034) ng/mL C-Reactive Protein (<1.0) mg/dL Total Protein (6.3-8.2) g/dL Albumin (3.5-5.0) g/dL Urine Appearance Cloudy H (Clear) Urine Protein 1+ H (Negative) Urine Ketones Trace H (Negative) Urine Blood Trace H (Negative) Urine Nitrite Positive H (Negative) Ur Leukocyte Esterase Large H (Negative) Urine WBC 73 H (0-5) /hpf Ur Squamous Epith Cells 27 H (0-4) /hpf Urine Bacteria Many H (None) /hpf Urine Mucus Few H (None) /hpf Assessment and Plan Plan: Left arm pain Mildly elevated troponin level, with abnormal EKG revealing evidence of T-wave inversion in anterior leads Evidence of urinary tract infection Review of old chart, revealed a previous diagnosis of coronary artery disease listed as a diagnosis in September 2013, history of hyperlipidemia, history of hypertension, history of syncope, and history of hypothyroidism. Patient however was not taking any home medication at the time of presentation. At this time patient will be admitted to telemetry floor with check serial cardiac enzymes and EKGs Cardiology consultation was requested Will check repeat labs including TSH Will start IV Rocephin for urinary tract infection Will follow closely
[2020-07-21] MEDS: KETOROLAC 15 MG/ML 1 ML VIAL IVP PRN ×2 (16:45→22:30)
[2020-07-22] MEDS: SODIUM CHLORIDE 0.9% 1,000 ML IV SCH ×2 (06:49→18:26)
[2020-07-22] MEDS ORDERED: ASPIRIN 325 MG TAB PO SCH (09:00)
[2020-07-22] MEDS: HEPARIN SOD,PORK IN 0.45% NACL 25,000 UNIT in 0.45% NACL 1 250ML.BAG IV SCH (09:50)
[2020-07-22] MEDS: KETOROLAC 15 MG/ML 1 ML VIAL IVP PRN ×2 (10:00→21:11)
[2020-07-22 12:55] LABS: ALT 9 U/L (4-34); AST 20 U/L (14-36); African American GFR (CKD) >90 (>60 ml/min/1.73 sqM); Albumin 2.3 g/dL (3.5-5.0); Alkaline Phosphatase 66 U/L (38-126); Anion Gap 3 mmol/L; Blood Urea Nitrogen 12 mg/dL (7-17); Calcium 7.5 mg/dL (8.4-10.2); Carbon Dioxide 28 mmol/L (22-30); Chloride 104 mmol/L (98-107); Glucose 107 mg/dL (74-99); Non-African American GFR(CKD) 89 (>60 ml/min/1.73 sqM); Potassium 3.8 mmol/L (3.5-5.1); Sodium 135 mmol/L (137-145); Total Bilirubin 0.3 mg/dL (0.2-1.3)
--- NOTE | 2020-07-22 13:25 | P.CRDCN ---
History of Present Illness Consult date: 07/22/20 Reason for Consult (text): Elevated troponins History of present illness: The patient is an 85-year-old female with past medical history of dyslipidemia and hypertension, who previously followed with Dr. John in the office. She states she followed with him many years back for dizziness, however her cardiac workup at that time was unremarkable. She is currently admitted to the hospital after experiencing left arm pain, which worsened over the last several days. She states this started approximately 5 weeks ago. She denies any fall or injury to her left shoulder prior to the pain starting. She denies any chest pain or chest pressure. No dyspnea, orthopnea, palpitations, dizziness, or lightheadedness. DIAGNOSTICS: EKG shows sinus rhythm with T-wave inversion in the precordial leads Chest x-ray shows no acute cardiopulmonary process Left shoulder x-ray showed osteoarthritis and possible tendinitis Cervical spine x-ray showed degenerative disc disease, foraminal encroachment, and facet arthropathy Laboratory data shows WBC 20.2, hemoglobin 14.1, hematocrit 42.4, platelet 273, sodium 135, potassium 3.8, BUN 19, creatinine 0.56, magnesium 1.8, ALT 11, AST 21, CK 25, troponin 0.08, 0.07, 0.06, TSH 2.8 CRP 6, urine positive for infection PAST MEDICAL HISTORY: Dyslipidemia, hypertension, osteoarthritis REVIEW OF SYSTEMS: No fever or chills. No cough or expectoration. No diaphoresis. Patient denies headache, dizziness, blurred vision, double vision. Patient denies any stomach discomfort. No nausea, vomiting. No hematochezia. No hematemesis. Denies any black stools or blood in his stools. Denies dysuria or hematuria. No muscle weakness or numbness. Positive for left shoulder discomfort. No chest pain or chest heaviness. No dyspnea. PHYSICAL EXAMINATION: This is a 85-year-old female in no apparent distress at the time of my examination. HEENT: Head is atraumatic, normocephalic. Pupils are equal, round. Sclerae anicteric. Conjunctivae are clear. Mucous membranes of the mouth are moist. Neck is supple. There is no jugular venous distention. No carotid bruit is heard. CHEST EXAMINATION: Lungs are diminished to auscultation. No chest wall tenderness is noted on palpation or with deep breathing. HEART EXAMINATION: Irregular rate and rhythm. S1, S2 heard. No murmurs, gallops or rub. ABDOMEN: Soft, nontender. Bowel sounds are heard. No organomegaly noted. EXTREMITIES: 2+ peripheral pulses with no evidence of peripheral edema and no calf tenderness noted. NEUROLOGIC EXAMINATION: Patient is awake, alert and oriented x3. FINAL ASSESSMENT AND PLAN: Left arm discomfort, secondary to tendinitis versus osteoarthritis Abnormal troponins, like in the secondary to active infection Leukocytosis, secondary to urinary tract infection PLAN: Transitioned to low-dose aspirin as the patient may have a history of coronary artery disease Follow-up visit with Dr. John probably in 2-3 weeks. The patient has been seen and evaluated. Plan of care has been reviewed and agreed upon by Dr Greene. Past Medical History Past Medical History: Chest Pain / Angina, Hyperlipidemia, Hypertension Additional Past Medical History / Comment(s): leonor cataracts, past fall broke rt leg, stress test, growth(hard spot in mouth unable to wear denture) History of Any Multi-Drug Resistant Organisms: None Reported Past Surgical History: Back Surgery, Hysterectomy, Orthopedic Surgery Additional Past Surgical History / Comment(s): thyroidectomy,edg/colonoscopy, leonor knee arthroscopies, leonor knee arthroplasties, sx to repair broken fibula. Past Anesthesia/Blood Transfusion Reactions: Motion Sickness Additional Past Anesthesia/Blood Transfusion Reaction / Comment(s): blood transfusion-no reaction Past Psychological History: Anxiety Smoking Status: Never smoker Past Alcohol Use History: None Reported Past Drug Use History: None Reported - Past Family History Mother Family Medical History: Cancer Additional Family Medical History / Comment(s): breast cancer Sister(s) Family Medical History: Cancer Additional Family Medical History / Comment(s): breast cancer Father Family Medical History: Myocardial Infarction ([place]) Additional Family Medical History / Comment(s): from [place] at age 62 Medications and Allergies Home Medications Medication Instructions Recorded Confirmed Type Ibuprofen [Advil] 200 mg PO Q8H PRN 07/21/20 07/21/20 History Allergies Allergy/AdvReac Type Severity Reaction Status Date / Time No Known Allergies Allergy Verified 07/21/20 08:51 Physical Exam Vitals: Vital Signs Temp Pulse Pulse Resp BP Pulse Ox 07/22/20 09:40 98.0 F 87 18 147/79 94 L 05/31/21 04:00 98.2 F 87 16 128/72 94 L 07/22/20 02:00 92 16 07/22/20 00:00 98.0 F 92 16 119/67 92 L 07/21/20 20:00 98.5 F 80 80 15 136/69 97 07/21/20 16:51 97.2 F L 78 16 148/79 95 07/21/20 14:15 90 16 07/21/20 14:05 97.5 F L 90 16 148/85 94 L Intake and Output 07/21/20 07/22/20 07/22/20 22:59 06:59 14:59 Intake Total 210 10 558.336 Balance 210 10 558.336 Intake: IV 10 10 10 Invasive Line 1 10 10 10 Intake, IV Titration 548.336 Amount Heparin Sod,Pork in 0.45% 198.336 NaCl 25,000 unit In 0.45 % NaCl 1 250ml.bag @ 12 UNITS/KG/HR 8.763 mls/hr IV .Q24H [facility] Rx#: [id number] Sodium Chloride 0.9% 1, 300 000 ml @ 100 mls/hr IV . Q10H [facility] Rx#:[id number] cefTRIAXone 1 gm In 50 Sodium Chloride 0.9% 50 ml @ 100 mls/hr IVPB Q24HR [facility] Rx#:[id number] Oral 200 Other: Voiding Method Toilet Toilet Toilet # Voids 1 1 1 # Bowel Movements 0 Weight 76 kg Results 07/21/20 08:05 07/22/20 12:33 Cardiac Enzymes 07/21/20 07/22/20 Range/Units 14:07 12:33 AST 20 (14-36) U/L Troponin I 0.069 H* (0.000-0.034) ng/mL Coagulation 07/21/20 07/22/20 Range/Units 17:13 08:36 APTT 62.1 H 51.4 H (22.0-30.0) sec Comprehensive Metabolic Panel 07/22/20 Range/Units 12:33 Sodium 135 L (137-145) mmol/L Potassium 3.8 (3.5-5.1) mmol/L Chloride 104 (98-107) mmol/L Carbon Dioxide 28 (22-30) mmol/L BUN 12 (7-17) mg/dL Creatinine 0.49 L (0.52-1.04) mg/dL Glucose 107 H (74-99) mg/dL Calcium 7.5 L (8.4-10.2) mg/dL AST 20 (14-36) U/L ALT 9 (4-34) U/L Alkaline Phosphatase 66 (38-126) U/L Total Protein 5.0 L (6.3-8.2) g/dL Albumin 2.3 L (3.5-5.0) g/dL Current Medications Generic Name Dose Route Start Last Admin Trade Name Freq PRN Reason Stop Dose Admin Aspirin 325 mg 07/22/20 09:00 07/22/20 09:50 Aspirin 325 Mg Tab PO 325 mg DAILY [facility] Administration Sodium Chloride 1,000 mls @ 100 mls/hr 07/21/20 11:00 07/22/20 06:49 Saline 0.9% IV Not Given .Q10H [facility] Ceftriaxone Sodium 1 gm/ 50 mls @ 100 mls/hr 07/22/20 09:00 07/22/20 09:50 Sodium Chloride IVPB 100 mls/hr Q24HR [facility] Administration Ketorolac Tromethamine 15 mg 07/21/20 16:04 07/21/20 22:30 Ketorolac 15 Mg/Ml 1 Ml Vial IVP 07/24/20 16:05 15 mg Q6HR PRN Administration Pain Nitroglycerin 0.4 mg 07/21/20 10:56 Nitroglycerin Sl Tabs 0.4 Mg Tab SUBLINGUAL Q5M PRN Chest Pain Intake and Output 07/21/20 07/22/20 07/22/20 22:59 06:59 14:59 Intake Total 210 10 558.336 Balance 210 10 558.336 Intake: IV 10 10 10 Invasive Line 1 10 10 10 Intake, IV Titration 548.336 Amount Heparin Sod,Pork in 0.45% 198.336 NaCl 25,000 unit In 0.45 % NaCl 1 250ml.bag @ 12 UNITS/KG/HR 8.763 mls/hr IV .Q24H [facility] Rx#: [id number] Sodium Chloride 0.9% 1, 300 000 ml @ 100 mls/hr IV . Q10H [facility] Rx#:[id number] cefTRIAXone 1 gm In 50 Sodium Chloride 0.9% 50 ml @ 100 mls/hr IVPB Q24HR [facility] Rx#:[id number] Oral 200 Other: Voiding Method Toilet Toilet Toilet # Voids 1 1 1 # Bowel Movements 0 Weight 76 kg 07/21/20 08:05 07/22/20 12:33
--- NOTE | 2020-07-22 16:36 | P.PN ---
Subjective Progress Note Date: 07/22/20 Vandana Bonilla, is an 85-year-old female who presented to [facility] emergency room with a chief complaint of pain in the left arm that started several days ago but has been worse in the last 2 days, patient describes a severe pain in the mid left arm area she denies any fall or injury she denies any other complaints no chest pain no dizziness no shortness of breath no diaphoresis no nausea or vomiting. She was evaluated in the emergency room vital examination on presentation reveals a temperature of 97.7 pulse 94 respiration 18 blood pressure 139/78 pulse ox 94% on room air. Laboratory data in the emergency room revealed a white blood count of 20.2 hemoglobin 14.1 platelet count 273 sodium 135 potassium 3.8 chloride 101 CO2 29 BUN 19 creatinine 0.56 troponin was mildly elevated at 0.080 C-reactive protein was elevated at 6.0 urine analysis revealed evidence of urinary tract infection coronavirus PCR was negative. Chest x-ray was done in the emergency room and revealed no acute cardiopulmonary process, EKG was done in the emergency room and revealed sinus rhythm with T-wave abnormality in the anterior leads, left shoulder x-ray revealed evidence of osteoarthritis and possible calcific tendinitis, cervical spine x-ray revealed evidence of degenerative disc disease and foraminal encroachment and facet arthropathy. Patient was admitted to telemetry floor cardiology consultation was requested On 07/22/2020 Patient was seen and examined on the medical floor, he is alert and oriented x 3 in no distress, he denies any complaints there is no fever or chills no headache or dizziness no chest pain no shortness of breath no palpitation no cough no nausea or vomiting no abdominal pain no diarrhea no blood in the stools no burning with urination no frequency or urgency and no hematuria, at this time continue with current management awaiting urine culture results recheck CBC in a.m. Will follow closely Objective - Vital Signs Vital signs: Vital Signs Temp 97.5 F L 07/22/20 16:26 Pulse 84 07/22/20 16:26 Resp 18 07/22/20 16:26 BP 143/76 07/22/20 16:26 Pulse Ox 95 07/22/20 16:26 Intake & Output 07/21/20 07/22/20 07/22/20 18:59 06:59 18:59 Intake Total 902 94 4744.336 Balance 821 90 2961.336 Weight 74.5 kg 76 kg Intake: IV 10 20 10 Invasive Line 1 10 20 10 Intake, IV Titration 1448.336 Amount Heparin Sod,Pork in 0.45% 198.336 NaCl 25,000 unit In 0.45 % NaCl 1 250ml.bag @ 12 UNITS/KG/HR 8.763 mls/hr IV .Q24H NILESH Rx#: [id number] Sodium Chloride 0.9% 1, 1200 000 ml @ 100 mls/hr IV . Q10H NILESH Rx#:[id number] cefTRIAXone 1 gm In 50 Sodium Chloride 0.9% 50 ml @ 100 mls/hr IVPB Q24HR NILESH Rx#:[id number] Oral 500 236 Other: Voiding Method Toilet Toilet Toilet # Voids 1 3 # Bowel Movements 0 - Exam In general patient is alert and oriented ?-3 in no distress HEENT head normocephalic and atraumatic Neck is supple no JVD no goiter no lymphadenopathy no carotid bruit Chest examination is clear to auscultation no crackles no wheezing Cardiac exam reveals regular heart sounds S1 and S2 no gallops no murmurs Abdomen is soft nontender no organomegaly with normal bowel sounds Extremity exam reveals no edema no cyanosis or clubbing Neurological examination reveals no gross focal deficits - Labs CBC & Chem 7: 07/21/20 08:05 07/22/20 12:33 Labs: Abnormal Lab Results - Last 24 Hours (Table) 07/21/20 07/22/20 07/22/20 Range/Units 17:13 08:36 12:33 APTT 62.1 H 51.4 H (22.0-30.0) sec Sodium 135 L (137-145) mmol/L Creatinine 0.49 L (0.52-1.04) mg/dL Glucose 107 H (74-99) mg/dL Calcium 7.5 L (8.4-10.2) mg/dL Total Protein 5.0 L (6.3-8.2) g/dL Albumin 2.3 L (3.5-5.0) g/dL Microbiology - Last 24 Hours (Table) 07/21/20 10:15 Blood Culture - Preliminary Blood No Growth after 24 hours 07/21/20 09:07 Urine Culture - Preliminary Urine,Voided Gram Neg Bacilli Assessment and Plan Plan: Left arm pain Mildly elevated troponin level, with abnormal EKG revealing evidence of T-wave inversion in anterior leads Evidence of urinary tract infection Review of old chart, revealed a previous diagnosis of coronary artery disease listed as a diagnosis in September 2013, history of hyperlipidemia, history of hypertension, history of syncope, and history of hypothyroidism. Patient however was not taking any home medication at the time of presentation. At this time patient will be admitted to telemetry floor with check serial cardiac enzymes and EKGs Cardiology consultation was requested Will check repeat labs including TSH Will start IV Rocephin for urinary tract infection Continue with IV Rocephin today we are awaiting urine culture results possible discharge to home tomorrow Will follow closely
[2020-07-22 17:04] LABS: Chol/HDL Ratio 4.04
[2020-07-23] MEDS: SODIUM CHLORIDE 0.9% 1,000 ML IV SCH (03:10)
[2020-07-23] MEDS: KETOROLAC 15 MG/ML 1 ML VIAL IVP PRN (04:47)
[2020-07-23 08:32] LABS: Basophils # (A) 0.1 k/uL (0-0.2); Basophils % (A) 0 %; Eosinophils # (A) 0.4 k/uL (0-0.7); Eosinophils % (A) 3 %; HCT 37.8 % (34.0-46.0); HGB 12.3 gm/dL (11.4-16.0); Lymphocytes # (A) 0.7 k/uL (1.0-4.8); Lymphocytes % (A) 4 %; MCH 29.4 pg (25.0-35.0); MCHC 32.7 g/dL (31.0-37.0); MCV 90.1 fL (80.0-100.0); Mean Platelet Volume 7.3; Monocytes # (A) 1.4 k/uL (0-1.0); Monocytes % (A) 8 %; Neutrophils # (A) 14.3 k/uL (1.3-7.7); Neutrophils % (A) 84 %; Platelet Count 258 k/uL (150-450); RBC 4.19 m/uL (3.80-5.40); RDW 12.7 % (11.5-15.5)
[2020-07-23 08:46] LABS: ALT 10 U/L (4-34); AST 23 U/L (14-36); African American GFR (CKD) >90 (>60 ml/min/1.73 sqM); Albumin 2.1 g/dL (3.5-5.0); Alkaline Phosphatase 70 U/L (38-126); Anion Gap 4 mmol/L; Blood Urea Nitrogen 12 mg/dL (7-17); Calcium 7.8 mg/dL (8.4-10.2); Carbon Dioxide 27 mmol/L (22-30); Chloride 105 mmol/L (98-107); Glucose 79 mg/dL (74-99); Non-African American GFR(CKD) 87 (>60 ml/min/1.73 sqM); Potassium 3.6 mmol/L (3.5-5.1); Sodium 136 mmol/L (137-145); Total Bilirubin 0.3 mg/dL (0.2-1.3); Total Protein 4.7 g/dL (6.3-8.2)
[2020-07-23] MEDS ORDERED: ASPIRIN 81 MG PO SCH (09:00)
[2020-07-23 11:49] VITALS: BP 138/68; PULSE 87; RESP 16; TEMP 98
--- NOTE | 2020-07-23 12:04 | ECHOF ---
Referral Reason:abnormal ecg MEASUREMENTS -------- HEIGHT: 160.0 cm WEIGHT: 77.1 kg BP: 138/71 IVSd: 1.0 cm (0.6 - 1.1) LVIDd: 4.1 cm (3.9 - 5.3) LVPWd: 1.1 cm (0.6 - 1.1) IVSs: 1.6 cm LVIDs: 1.9 cm LVPWs: 1.3 cm LAESV Index (A-L): 31.50 ml/m Ao Diam: 3.1 cm (2.0 - 3.7) AV Cusp: 2.2 cm (1.5 - 2.6) LA Diam: 3.6 cm (2.7 - 3.8) MV EXCURSION: 18.048 mm (> 18.000) MV EF SLOPE: 96 mm/s (70 - 150) EPSS: 2.1 cm MV E Buddy: 0.67 m/s MV DecT: 148 ms MV A Buddy: 0.80 m/s MV E/A Ratio: 0.84 RAP: 5.00 mmHg RVSP: 15.17 mmHg FINDINGS -------- This was a technically difficult study with suboptimal views. The left ventricular size is normal. Left ventricular wall thickness is normal. Overall left vent ricular systolic function is normal with, an EF between 55 - 60 %. The diastolic filling pattern is normal for the age of the patient 12.58. The RV was not well visualized. LA is midly dilated 29-33ml/m2. The right atrial size is normal. xx ml of Lumason was utilized for enhancement of images. Unable to visualize atrial septum. The aortic valve is trileaflet and appears structurally normal. The mitral valve is normal. The mitral valve leaflets are mildly thickened. There is trace mitral regurgitation. The tricuspid valve appears structurally normal. Trace tricuspid regurgitation present. Right héctor tricular systolic pressure is normal at < 35 mmHg. There is no pulmonic regurgitation present. The aortic root size is normal. IVC Not well visulized. There is no pericardial effusion. CONCLUSIONS -------- 1. The left ventricular size is normal. 2. Left ventricular wall thickness is normal. 3. Overall left ventricular systolic function is normal with, an EF between 55 - 60 %. 4. The diastolic filling pattern is normal for the age of the patient 12.58 5. LA is midly dilated 29-33ml/m2. 6. The mitral valve leaflets are mildly thickened. 7. There is trace mitral regurgitation. 8. Trace tricuspid regurgitation present. 9. There is no pericardial effusion. TEST BORER HELPER: Ana Francis RDCS
--- NOTE | 2020-07-23 12:48 | P.DS ---
Providers Date of admission: 07/21/20 10:56 Expected date of discharge: 07/23/20 Attending physician: Mily Child Primary care physician: Ronna Wall [facility] Course: Diagnoses on discharge: Left arm pain Mildly elevated troponin level, with abnormal EKG revealing evidence of T-wave inversion in anterior leads Evidence of urinary tract infection Hospital Course: Vandana Bonilla, is an 85-year-old female who presented to [facility] emergency room with a chief complaint of pain in the left arm that started several days ago but has been worse in the last 2 days, patient describes a severe pain in the mid left arm area she denies any fall or injury she denies any other complaints no chest pain no dizziness no shortness of breath no diaphoresis no nausea or vomiting. She was evaluated in the emergency room vital examination on presentation reveals a temperature of 97.7 pulse 94 respiration 18 blood pressure 139/78 pulse ox 94% on room air. Laboratory data in the emergency room revealed a white blood count of 20.2 hemoglobin 14.1 platelet count 273 sodium 135 potassium 3.8 chloride 101 CO2 29 BUN 19 creatinine 0.56 troponin was mildly elevated at 0.080 C-reactive protein was elevated at 6.0 urine analysis revealed evidence of urinary tract infection coronavirus PCR was negative. Chest x-ray was done in the emergency room and revealed no acute cardiopulmonary process, EKG was done in the emergency room and revealed sinus rhythm with T-wave abnormality in the anterior leads, left shoulder x-ray revealed evidence of osteoarthritis and possible calcific tendinitis, cervical spine x-ray revealed evidence of degenerative disc disease and foraminal encroachment and facet arthropathy. Patient was admitted to telemetry floor cardiology consultation was requested On 07/22/2020 Patient was seen and examined on the medical floor, he is alert and oriented x 3 in no distress, he denies any complaints there is no fever or chills no headache or dizziness no chest pain no shortness of breath no palpitation no cough no nausea or vomiting no abdominal pain no diarrhea no blood in the stools no burning with urination no frequency or urgency and no hematuria, at this time continue with current management awaiting urine culture results recheck CBC in a.m. Will follow closely On 07/23/2020 Patient was seen and examined on the medical floor, he is alert and oriented x 3 in no distress, he denies any complaints there is no fever or chills no headache or dizziness no chest pain no shortness of breath no palpitation no cough no nausea or vomiting no abdominal pain no diarrhea no blood in the stools no burning with urination no frequency or urgency and no hematuria, urine culture is available at this time and is positive for E. coli sensitive for all tested antibiotics, patient improved with IV Rocephin she will be switched to oral Ceftin 500 mg twice daily for 7 more days, follow-up with primary care physician within one week. Patient was evaluated and cleared by cardiology for discharge yesterday follow-up with cardiology in 1-2 weeks. Patient Condition at Discharge: Fair Plan - Discharge Summary Discharge Rx Participant: No New Discharge Prescriptions: New Nitroglycerin Sl Tabs [Nitrostat] 0.4 mg SUBLINGUAL Q5M PRN tab PRN Reason: Chest Pain Aspirin 81 mg PO DAILY chew Cefuroxime Axetil [Ceftin] 500 mg PO BID 7 Days #14 tab Continue Ibuprofen [Advil] 200 mg PO Q8H PRN PRN Reason: Fever And/ Or Pain Discharge Medication List Ibuprofen [Advil] 200 mg PO Q8H PRN 07/21/20 [History] Aspirin 81 mg PO DAILY chew 07/23/20 [Rx] Cefuroxime Axetil [Ceftin] 500 mg PO BID 7 Days #14 tab 07/23/20 [Rx] Nitroglycerin Sl Tabs [Nitrostat] 0.4 mg SUBLINGUAL Q5M PRN tab 07/23/20 [Rx] Follow up Appointment(s)/Referral(s): Ronna Wall MD [Primary Care Provider] - 1-2 days [facility] [NON-STAFF] -
== END 2020-07-23 15:00 | disposition home or self-care (01) ==
LOC: EC 07:07 → INTOOBSV 10:56 → 3SCARD 10:56 → UNDODISIN 07-23 15:00
PROVIDERS: ADMIT Internal Medicine; ATTEND Internal Medicine
DX: M79.602 Pain in left arm (principal); R77.8 Other specified abnormalities of plasma proteins; N39.0 Urinary tract infection, site not specified; Z20.822 Contact with and (suspected) exposure to COVID-19; I25.10 Atherosclerotic heart disease of native coronary artery without angina pectoris; I10 Essential (primary) hypertension; E78.5 Hyperlipidemia, unspecified; E86.0 Dehydration; E89.0 Postprocedural hypothyroidism; M19.90 Unspecified osteoarthritis, unspecified site; F41.9 Anxiety disorder, unspecified; H26.9 Unspecified cataract; Z90.710 Acquired absence of both cervix and uterus; Z96.653 Presence of artificial knee joint, bilateral; Z90.89 Acquired absence of other organs; Z87.81 Personal history of (healed) traumatic fracture; Z80.3 Family history of malignant neoplasm of breast; Z82.49 Family history of ischemic heart disease and other diseases of the circulatory system
CPT/HCPCS: 96376 ×3; 96361; 96366 ×4; 96368; 96365; 96367; 96375; 99285; 36415; 93005; 80061; 80053 ×3; 84443; 82550; 83605; 83735; 84484; 85025 ×2; 85730 ×2; 86140; 81001; 87040; 87086; 87077; 87186; 87635; 72050; 73030; 71046; G0378 ×3; C8929; J0696 ×3; J1644 ×3; J1885 ×3; Q9950; 93306; 96374

== ENCOUNTER 2020-07-23 20:20 | Observation (INO) | payer MEDICARE ==
[2020-07-23] MEDS ORDERED: SODIUM CHLORIDE 0.9% 1,000 ML IV STA (21:46)
--- NOTE | 2020-07-23 21:46 | ED ---
Weakness HPI - General Chief complaint: Weakness Stated complaint: shoulder pain Time Seen by Provider: 07/23/20 21:44 Source: patient, EMS, RN notes reviewed, old records reviewed Mode of arrival: EMS - History of Present Illness Initial comments: This is an 85-year-old female DF for evaluation. Patient presents today for evaluation of weakness continued weakness for evaluation of continued outpatient management of urinary tract infection. Patient states her symptoms are getting worse weakness is getting worse and she's also complaining of left shoulder plain. Patient was just admitted and discharged just today during the day today. Patient has no new complaints from discharge. MD Complaint: generalized weakness -: days(s) Location: generalized Severity: moderate Severity scale (1-10): 6 Consistency: constant Improves with: none Worsens with: none Context: new medication, recent illness, history of similar Associated Symptoms: nausea/vomiting - Related Data Home Medications Medication Instructions Recorded Confirmed Ibuprofen [Advil] 200 mg PO Q8H PRN 07/21/20 07/23/20 Nitroglycerin Sl Tabs [Nitrostat] 0.4 mg SL Q5M PRN 07/23/20 07/23/20 Previous Rx's Medication Instructions Recorded Aspirin 81 mg PO DAILY chew 07/23/20 Cefuroxime Axetil [Ceftin] 500 mg PO BID 7 Days #14 tab 07/23/20 Allergies Allergy/AdvReac Type Severity Reaction Status Date / Time No Known Allergies Allergy Verified 07/23/20 23:06 Review of Systems ROS Statement: Those systems with pertinent positive or pertinent negative responses have been documented in the HPI. ROS Other: All systems not noted in ROS Statement are negative. Past Medical History Past Medical History: Chest Pain / Angina, Hyperlipidemia, Hypertension Additional Past Medical History / Comment(s): leonor cataracts, past fall broke rt leg, stress test, growth(hard spot in mouth unable to wear denture) History of Any Multi-Drug Resistant Organisms: None Reported Past Surgical History: Back Surgery, Hysterectomy, Orthopedic Surgery Additional Past Surgical History / Comment(s): thyroidectomy,edg/colonoscopy, leonor knee arthroscopies, leonor knee arthroplasties, sx to repair broken fibula. Past Anesthesia/Blood Transfusion Reactions: Motion Sickness Additional Past Anesthesia/Blood Transfusion Reaction / Comment(s): blood transfusion-no reaction Past Psychological History: Anxiety Smoking Status: Never smoker Past Alcohol Use History: None Reported Past Drug Use History: None Reported - Past Family History Mother Family Medical History: Cancer Additional Family Medical History / Comment(s): breast cancer Sister(s) Family Medical History: Cancer Additional Family Medical History / Comment(s): breast cancer Father Family Medical History: Myocardial Infarction ([place]) Additional Family Medical History / Comment(s): from mi at age 62 General Exam General appearance: alert, in no apparent distress Head exam: Present: atraumatic, normocephalic, normal inspection Eye exam: Present: normal appearance, PERRL, EOMI. Absent: scleral icterus, conjunctival injection, periorbital swelling ENT exam: Present: normal exam, mucous membranes moist Neck exam: Present: normal inspection. Absent: tenderness, meningismus, lymphadenopathy Respiratory exam: Present: normal lung sounds bilaterally. Absent: respiratory distress, wheezes, rales, rhonchi, stridor Cardiovascular Exam: Present: regular rate, normal rhythm, normal heart sounds. Absent: systolic murmur, diastolic murmur, rubs, gallop, clicks GI/Abdominal exam: Present: soft, normal bowel sounds. Absent: distended, tenderness, guarding, rebound, rigid Extremities exam: Present: normal inspection, full ROM, normal capillary refill. Absent: tenderness, pedal edema, joint swelling, calf tenderness Back exam: Present: normal inspection Neurological exam: Present: alert, oriented X3, CN II-XII intact Psychiatric exam: Present: normal affect, normal mood Skin exam: Present: warm, dry, intact, normal color. Absent: rash Course Vital Signs 07/23/20 20:24 Temperature 98.4 F Pulse Rate 100 Respiratory 18 Rate Blood Pressure 121/54 O2 Sat by Pulse 94 L Oximetry - Reevaluation(s) Reevaluation #1: 07/23/20 23:12 Attic record is reviewed including prior inpatient hospitalization Reevaluation #2: 07/23/20 23:12 Patient is no significant distress here in the Reevaluation #3: 07/23/20 23:12 Patient informed of findings questions answered - Consultations Consultation #1: Spoke with Dr. Flhaerty regarding admission he is agreeable EKG Findings - EKG Comments: EKG Findings:: EKG shows sinus rhythm at 94 OK 200 QRS 84 QTc 442 Medical Decision Making - Medical Decision Making 85 female persistent weakness increasing white count for recent inpatient admission. Persistent urinary tract infection, will place on again on antibiotics and hydration. - Lab Data Result diagrams: 07/23/20 22:21 07/23/20 22:21 Lab Results 07/23/20 07/23/20 07/23/20 Range/Units 22:21 22:21 22:21 WBC 20.3 H (3.8-10.6) k/uL RBC 4.27 (3.80-5.40) m/uL Hgb 12.9 (11.4-16.0) gm/dL Hct 38.2 (34.0-46.0) % MCV 89.4 (80.0-100.0) fL MCH 30.3 (25.0-35.0) pg MCHC 33.9 (31.0-37.0) g/dL RDW 12.7 (11.5-15.5) % Plt Count 251 (150-450) k/uL MPV 7.2 Neutrophils % 89 % Lymphocytes % 3 % Monocytes % 6 % Eosinophils % 2 % Basophils % 0 % Neutrophils # 18.1 H (1.3-7.7) k/uL Lymphocytes # 0.5 L (1.0-4.8) k/uL Monocytes # 1.1 H (0-1.0) k/uL Eosinophils # 0.4 (0-0.7) k/uL Basophils # 0.1 (0-0.2) k/uL Sodium 133 L (137-145) mmol/L Potassium 4.1 (3.5-5.1) mmol/L Chloride 106 (98-107) mmol/L Carbon Dioxide 25 (22-30) mmol/L Anion Gap 2 mmol/L BUN 14 (7-17) mg/dL Creatinine 0.45 L (0.52-1.04) mg/dL Est GFR (CKD-EPI)AfAm >90 (>60 ml/min/1.73 sqM) Est GFR (CKD-EPI)NonAf >90 (>60 ml/min/1.73 sqM) Glucose 127 H (74-99) mg/dL Plasma Lactic Acid Luis 1.3 (0.7-2.0) mmol/L Calcium 8.0 L (8.4-10.2) mg/dL Phosphorus 2.3 L (2.5-4.5) mg/dL Magnesium 1.7 (1.6-2.3) mg/dL Total Bilirubin 0.3 (0.2-1.3) mg/dL AST 31 (14-36) U/L ALT 12 (4-34) U/L Alkaline Phosphatase 77 (38-126) U/L NT-Pro-B Natriuret Pep pg/mL Total Protein 4.8 L (6.3-8.2) g/dL Albumin 2.2 L (3.5-5.0) g/dL 07/23/20 Range/Units 22:21 WBC (3.8-10.6) k/uL RBC (3.80-5.40) m/uL Hgb (11.4-16.0) gm/dL Hct (34.0-46.0) % MCV (80.0-100.0) fL MCH (25.0-35.0) pg MCHC (31.0-37.0) g/dL RDW (11.5-15.5) % Plt Count (150-450) k/uL MPV Neutrophils % % Lymphocytes % % Monocytes % % Eosinophils % % Basophils % % Neutrophils # (1.3-7.7) k/uL Lymphocytes # (1.0-4.8) k/uL Monocytes # (0-1.0) k/uL Eosinophils # (0-0.7) k/uL Basophils # (0-0.2) k/uL Sodium (137-145) mmol/L Potassium (3.5-5.1) mmol/L Chloride (98-107) mmol/L Carbon Dioxide (22-30) mmol/L Anion Gap mmol/L BUN (7-17) mg/dL Creatinine (0.52-1.04) mg/dL Est GFR (CKD-EPI)AfAm (>60 ml/min/1.73 sqM) Est GFR (CKD-EPI)NonAf (>60 ml/min/1.73 sqM) Glucose (74-99) mg/dL Plasma Lactic Acid Luis (0.7-2.0) mmol/L Calcium (8.4-10.2) mg/dL Phosphorus (2.5-4.5) mg/dL Magnesium (1.6-2.3) mg/dL Total Bilirubin (0.2-1.3) mg/dL AST (14-36) U/L ALT (4-34) U/L Alkaline Phosphatase (38-126) U/L NT-Pro-B Natriuret Pep 2420 pg/mL Total Protein (6.3-8.2) g/dL Albumin (3.5-5.0) g/dL - Radiology Data Radiology results: report reviewed (Chest x-rays negative for acute disease), image reviewed Disposition Clinical Impression: UTI (urinary tract infection), Weakness, Failure of outpatient treatment, Dehydration Disposition: ADMITTED IP TO THIS HOSP Condition: Fair Is patient prescribed a controlled substance at d/c from ED?: No
[2020-07-23 22:32] LABS: Basophils # (A) 0.1 k/uL (0-0.2); Basophils % (A) 0 %; Eosinophils # (A) 0.4 k/uL (0-0.7); Eosinophils % (A) 2 %; HCT 38.2 % (34.0-46.0); HGB 12.9 gm/dL (11.4-16.0); Lymphocytes # (A) 0.5 k/uL (1.0-4.8); Lymphocytes % (A) 3 %; MCH 30.3 pg (25.0-35.0); MCHC 33.9 g/dL (31.0-37.0); MCV 89.4 fL (80.0-100.0); Mean Platelet Volume 7.2; Monocytes # (A) 1.1 k/uL (0-1.0); Monocytes % (A) 6 %; Neutrophils # (A) 18.1 k/uL (1.3-7.7); Neutrophils % (A) 89 %; Platelet Count 251 k/uL (150-450); RBC 4.27 m/uL (3.80-5.40); RDW 12.7 % (11.5-15.5); WBC 20.3 k/uL (3.8-10.6)
[2020-07-23 22:41] LABS: ALT 12 U/L (4-34); AST 31 U/L (14-36); African American GFR (CKD) >90 (>60 ml/min/1.73 sqM); Albumin 2.2 g/dL (3.5-5.0); Alkaline Phosphatase 77 U/L (38-126); Anion Gap 2 mmol/L; Blood Urea Nitrogen 14 mg/dL (7-17); Carbon Dioxide 25 mmol/L (22-30); Chloride 106 mmol/L (98-107); Glucose 127 mg/dL (74-99); Magnesium 1.7 mg/dL (1.6-2.3); Non-African American GFR(CKD) >90 (>60 ml/min/1.73 sqM); Phosphorus 2.3 mg/dL (2.5-4.5); Potassium 4.1 mmol/L (3.5-5.1); Sodium 133 mmol/L (137-145); Total Bilirubin 0.3 mg/dL (0.2-1.3); Total Protein 4.8 g/dL (6.3-8.2)
[2020-07-23] MEDS ORDERED: MORPHINE SULFATE 4 MG/ML SYRINGE IVP STA (22:43)
[2020-07-23] MEDS ORDERED: NALOXONE 0.4 MG/ML 1 ML VIAL IV PRN (22:50)
[2020-07-23] MEDS ORDERED: ONDANSETRON 4 MG/2 ML VIAL IVP PRN (22:50)
[2020-07-23 22:57] LABS: Prothrombin Time 10.4 sec (9.0-12.0)
--- NOTE | 2020-07-23 23:19 | XR ---
EXAMINATION TYPE: XR chest 2V DATE OF EXAM: 07/23/2020 COMPARISON: 07/21/2020 HISTORY: Weakness TECHNIQUE: 2 views FINDINGS: There is no heart failure nor confluent pneumonic infiltrate. Is some coarsening of interstitial markings. There is no pleural effusion. IMPRESSION: Mild probably fibrosis. No acute lung disease. No heart failure. No adverse change compar ed to recent exam.
[2020-07-23 23:20] LABS: Partial Thromboplastin Time 20.5 sec (22.0-30.0)
[2020-07-24] MEDS: MORPHINE SULFATE 4 MG/ML SYRINGE IVP PRN ×2 (04:10→22:33)
[2020-07-24 05:10] LABS: Basophils # (A) 0.1 k/uL (0-0.2); Basophils % (A) 1 %; Eosinophils # (A) 0.5 k/uL (0-0.7); Eosinophils % (A) 3 %; HCT 37.3 % (34.0-46.0); HGB 12.3 gm/dL (11.4-16.0); Lymphocytes # (A) 0.9 k/uL (1.0-4.8); Lymphocytes % (A) 5 %; MCHC 33.1 g/dL (31.0-37.0); MCV 90.7 fL (80.0-100.0); Mean Platelet Volume 7.4; Monocytes # (A) 1.3 k/uL (0-1.0); Monocytes % (A) 8 %; Neutrophils # (A) 13.9 k/uL (1.3-7.7); Neutrophils % (A) 82 %; RBC 4.11 m/uL (3.80-5.40); RDW 12.9 % (11.5-15.5); WBC 16.9 k/uL (3.8-10.6)
[2020-07-24 05:12] LABS: Platelet Count 107 k/uL (150-450)
[2020-07-24 05:38] LABS: African American GFR (CKD) >90 (>60 ml/min/1.73 sqM); Anion Gap 1 mmol/L; Blood Urea Nitrogen 13 mg/dL (7-17); Calcium 7.5 mg/dL (8.4-10.2); Carbon Dioxide 25 mmol/L (22-30); Chloride 108 mmol/L (98-107); Glucose 85 mg/dL (74-99); Non-African American GFR(CKD) >90 (>60 ml/min/1.73 sqM); Potassium 3.9 mmol/L (3.5-5.1); Sodium 134 mmol/L (137-145)
--- NOTE | 2020-07-24 10:35 | P.HPIM ---
History of Present Illness H&P Date: 07/24/20 Chief Complaint: genralized weakness This is an 85-year-old female patient who presented to ER with complaints of generalized weakness. Patient reports that she has been treated for a urinary tract infection outpatient with minimum symptom improvement. Patient reports that she has generalized weakness with arm pain. Patient has a past medical history of chest pain, hyperlipidemia, hypertension and anxiety. UA completed on 07/21/2020 showing large amount of leukocyte Estrace. White blood cell elevated at 20.38 COVID-19 negative. Troponins mildly elevated 0.057 and 0.108. Lactic acid 1.3. Patient's temp 97.7. Heart rate 79, blood pressure 134/66. Cardiology services will be consulted. Patient started on Rocephin. Urine culture ordered. At this time patient denies chest pain or shortness of breath. Patient denies nausea vomiting or diarrhea. Review of Systems please refer to HPI otherwise unremarkable Past Medical History Past Medical History: Chest Pain / Angina, Hyperlipidemia, Hypertension Additional Past Medical History / Comment(s): leonor cataracts, past fall broke rt leg, stress test, growth(hard spot in mouth unable to wear denture) History of Any Multi-Drug Resistant Organisms: None Reported Past Surgical History: Back Surgery, Hysterectomy, Orthopedic Surgery Additional Past Surgical History / Comment(s): thyroidectomy,edg/colonoscopy, leonor knee arthroscopies, leonor knee arthroplasties, sx to repair broken fibula. Past Anesthesia/Blood Transfusion Reactions: Motion Sickness Additional Past Anesthesia/Blood Transfusion Reaction / Comment(s): blood transfusion-no reaction Past Psychological History: Anxiety Smoking Status: Never smoker Past Alcohol Use History: None Reported Past Drug Use History: None Reported - Past Family History Mother Family Medical History: Cancer Additional Family Medical History / Comment(s): breast cancer Sister(s) Family Medical History: Cancer Additional Family Medical History / Comment(s): breast cancer Father Family Medical History: Myocardial Infarction ([place]) Additional Family Medical History / Comment(s): from [place] at age 62 Medications and Allergies Home Medications Medication Instructions Recorded Confirmed Type Ibuprofen [Advil] 200 mg PO Q8H PRN 07/21/20 07/23/20 History Aspirin 81 mg PO DAILY chew 07/23/20 07/23/20 Rx Cefuroxime Axetil [Ceftin] 500 mg PO BID 7 Days #14 tab 07/23/20 07/23/20 Rx Nitroglycerin Sl Tabs [Nitrostat] 0.4 mg SL Q5M PRN 07/23/20 07/23/20 History Allergies Allergy/AdvReac Type Severity Reaction Status Date / Time No Known Allergies Allergy Verified 07/23/20 23:06 Physical Exam Vitals: Vital Signs Temp Pulse Resp BP Pulse Ox 07/24/20 07:35 97.7 F 79 18 134/66 100 07/24/20 04:06 77 16 158/93 99 07/23/20 20:24 98.4 F 100 18 121/54 94 L Intake and Output 07/23/20 07/24/20 07/24/20 22:59 06:59 14:59 Other: Weight 73.028 kg Head normocephalic Neck supple Lungs clear to auscultation bilaterally no wheezing or crackles Heart regular rate and rhythm S1-S2, no rub or gallop Abdomen is soft nontender nondistended positive bowel sounds no hepatosplenomegaly Extremities no edema Neuro alert and orientated to 3 Results CBC & Chem 7: 07/24/20 04:44 07/24/20 04:44 Labs: Abnormal Lab Results - Last 24 Hours (Table) 07/23/20 07/23/20 07/23/20 Range/Units 22:21 22:21 22:21 WBC 20.3 H (3.8-10.6) k/uL Plt Count (150-450) k/uL Neutrophils # 18.1 H (1.3-7.7) k/uL Lymphocytes # 0.5 L (1.0-4.8) k/uL Monocytes # 1.1 H (0-1.0) k/uL APTT 20.5 L (22.0-30.0) sec Sodium 133 L (137-145) mmol/L Chloride (98-107) mmol/L Creatinine 0.45 L (0.52-1.04) mg/dL Glucose 127 H (74-99) mg/dL Calcium 8.0 L (8.4-10.2) mg/dL Phosphorus 2.3 L (2.5-4.5) mg/dL Troponin I (0.000-0.034) ng/mL Total Protein 4.8 L (6.3-8.2) g/dL Albumin 2.2 L (3.5-5.0) g/dL 07/23/20 07/24/20 07/24/20 Range/Units 22:21 04:44 04:44 WBC 16.9 H (3.8-10.6) k/uL Plt Count 107 L D (150-450) k/uL Neutrophils # 13.9 H (1.3-7.7) k/uL Lymphocytes # 0.9 L (1.0-4.8) k/uL Monocytes # 1.3 H (0-1.0) k/uL APTT (22.0-30.0) sec Sodium 134 L (137-145) mmol/L Chloride 108 H (98-107) mmol/L Creatinine 0.42 L (0.52-1.04) mg/dL Glucose (74-99) mg/dL Calcium 7.5 L (8.4-10.2) mg/dL Phosphorus (2.5-4.5) mg/dL Troponin I 0.057 H* (0.000-0.034) ng/mL Total Protein (6.3-8.2) g/dL Albumin (3.5-5.0) g/dL 07/24/20 Range/Units 06:53 WBC (3.8-10.6) k/uL Plt Count (150-450) k/uL Neutrophils # (1.3-7.7) k/uL Lymphocytes # (1.0-4.8) k/uL Monocytes # (0-1.0) k/uL APTT (22.0-30.0) sec Sodium (137-145) mmol/L Chloride (98-107) mmol/L Creatinine (0.52-1.04) mg/dL Glucose (74-99) mg/dL Calcium (8.4-10.2) mg/dL Phosphorus (2.5-4.5) mg/dL Troponin I 0.108 H* (0.000-0.034) ng/mL Total Protein (6.3-8.2) g/dL Albumin (3.5-5.0) g/dL Assessment and Plan Assessment: 1. Generalized weakness likely secondary to urinary tract infection 2. Urinary tract infection. Urine culture ordered. Patient started on Rocephin 3. Elevated troponins. Cardiology service is consulted 4. History of essential hypertension 5. History of anxiety DVT prophylaxis Lovenox. GI prophylaxis Protonix. Cardiology services consulted [place] for urinary tract infection Urine culture ordered PT OT services consulted Time with Patient: Greater than 30 (Greater than 60% of the total time spent in counseling and coordination of care)
--- NOTE | 2020-07-24 12:50 | P.CRDCN ---
History of Present Illness Consult date: 07/24/20 History of present illness: HISTORY OF PRESENT ILLNESS: This is a 85-year-old female with a past medical history significant for hypertension and hyperlipidemia. Patient follows in the office with Dr. John. We have been asked to see the patient in consultation for abnormal troponins. Patient was admitted to the hospital from 07/21/2020 until 07/23/2020 secondary to urinary tract infection and left arm pain. Patient was discharged home yesterday. Patient examined at the bedside in the ER. Patient states when she got home yesterday she was very weak and was unable to bear weight on her legs so she came back to the hospital. She thinks she may need to go to rehab instead of going home this time. Patient reports left arm pain near the tricep that she states has been ongoing for the past 4-5 weeks. She also reports some discomfort in her right arm as well. She denies any chest pain or pressure. Denies shortness of breath. Denies dizziness or lightheadedness. EKG reveals sinus mechanism with T-wave inversions in precordial leads, unchanged from previous EKG Chest xray mild pulmonary fibrosis. No acute lung disease. No heart failure. No adverse changes compared to recent exam. Laboratory data: WBC 20.3. Hemoglobin 12.9. Platelet count 251. Sodium 133. Potassium 4.1. BUN 14. Creatinine 0.45. Lactic acid 1.3. Troponin 0.057. 0.108. BNP 2420. Echocardiogram completed revealed ejection fraction 55-60%, trace mitral regurgitation, trace tricuspid regurgitation Current home cardiac medications include aspirin 81 mg daily REVIEW OF SYSTEMS: At the time of my exam: CONSTITUTIONAL: Denies fever or chills. HEENT: Denies blurred vision, vision changes, or eye pain. Denies hemoptysis CARDIOVASCULAR: Denies chest pain. Denies orthopnea. Denies PND. Denies palpitations RESPIRATORY: Denies shortness of breath. GASTROINTESTINAL: Denies abdominal pain. Denies nausea or vomiting. HEMATOLOGIC: Denies bleeding disorders. GENITOURINARY: Denies any blood in urine. SKIN: Denies pruitis. Denies rash. PHYSICAL EXAM: VITAL SIGNS: Reviewed. GENERAL: Well-developed in no acute distress. HEENT: Head is normocephalic. Pupils are equal, round. Sclerae anicteric. Mucous membranes of the mouth are moist. Neck supple. No JVD or thyromegaly LUNGS: Respirations even and unlabored. Lungs essentially clear to auscultation bilaterally. HEART: Regular rate and rhythm. S1 and S2 heard. ABDOMEN: Soft. Nondistended. Nontender. EXTREMITIES: Normal range of motion. No clubbing or cyanosis. Peripheral pulses intact. No lower extremity edema NEUROLOGIC: Awake and alert. Oriented x 3. ASSESSMENT: Urinary tract infection Leukocytosis, secondary to above Abnormal troponins, likely secondary to infectious process, no evidence of acute coronary syndrome Left arm pain x 4-5 weeks History of hypertension, blood pressure currently controlled History of hyperlipidemia, LDL 70 on 07/22/2020 PLAN: No need to repeat echocardiogram as this was performed recently No evidence of ACS Management of UTI per internal medicine We will sign off. Please reconsult if needed. Nurse practitioner note has been reviewed by physician. Signing provider agrees with the documented findings, assessment, and plan of care. Past Medical History Past Medical History: Chest Pain / Angina, Hyperlipidemia, Hypertension Additional Past Medical History / Comment(s): leonor cataracts, past fall broke rt leg, stress test, growth(hard spot in mouth unable to wear denture) History of Any Multi-Drug Resistant Organisms: None Reported Past Surgical History: Back Surgery, Hysterectomy, Orthopedic Surgery Additional Past Surgical History / Comment(s): thyroidectomy,edg/colonoscopy, leonor knee arthroscopies, leonor knee arthroplasties, sx to repair broken fibula. Past Anesthesia/Blood Transfusion Reactions: Motion Sickness Additional Past Anesthesia/Blood Transfusion Reaction / Comment(s): blood transfusion-no reaction Past Psychological History: Anxiety Smoking Status: Never smoker Past Alcohol Use History: None Reported Past Drug Use History: None Reported - Past Family History Mother Family Medical History: Cancer Additional Family Medical History / Comment(s): breast cancer Sister(s) Family Medical History: Cancer Additional Family Medical History / Comment(s): breast cancer Father Family Medical History: Myocardial Infarction ([place]) Additional Family Medical History / Comment(s): from mi at age 62 Medications and Allergies Home Medications Medication Instructions Recorded Confirmed Type Ibuprofen [Advil] 200 mg PO Q8H PRN 07/21/20 07/23/20 History Aspirin 81 mg PO DAILY chew 07/23/20 07/23/20 Rx Cefuroxime Axetil [Ceftin] 500 mg PO BID 7 Days #14 tab 07/23/20 07/23/20 Rx Nitroglycerin Sl Tabs [Nitrostat] 0.4 mg SL Q5M PRN 07/23/20 07/23/20 History Allergies Allergy/AdvReac Type Severity Reaction Status Date / Time No Known Allergies Allergy Verified 07/23/20 23:06 Physical Exam Vitals: Vital Signs Temp Pulse Resp BP Pulse Ox 07/24/20 07:35 97.7 F 79 18 134/66 100 07/24/20 04:06 77 16 158/93 99 07/23/20 20:24 98.4 F 100 18 121/54 94 L Intake and Output 07/23/20 07/24/20 07/24/20 22:59 06:59 14:59 Other: Weight 73.028 kg Results 07/24/20 04:44 07/24/20 04:44 Cardiac Enzymes 07/23/20 07/23/20 07/24/20 Range/Units 22:21 22:21 06:53 AST 31 (14-36) U/L Troponin I 0.057 H* 0.108 H* (0.000-0.034) ng/mL Coagulation 07/23/20 Range/Units 22:21 PT 10.4 (9.0-12.0) sec APTT 20.5 L (22.0-30.0) sec CBC 07/23/20 07/24/20 Range/Units 22:21 04:44 WBC 20.3 H 16.9 H (3.8-10.6) k/uL RBC 4.27 4.11 (3.80-5.40) m/uL Hgb 12.9 12.3 (11.4-16.0) gm/dL Hct 38.2 37.3 (34.0-46.0) % Plt Count 251 107 L D (150-450) k/uL Comprehensive Metabolic Panel 07/23/20 07/24/20 Range/Units 22:21 04:44 Sodium 133 L 134 L (137-145) mmol/L Potassium 4.1 3.9 (3.5-5.1) mmol/L Chloride 106 108 H (98-107) mmol/L Carbon Dioxide 25 25 (22-30) mmol/L BUN 14 13 (7-17) mg/dL Creatinine 0.45 L 0.42 L (0.52-1.04) mg/dL Glucose 127 H 85 (74-99) mg/dL Calcium 8.0 L 7.5 L (8.4-10.2) mg/dL AST 31 (14-36) U/L ALT 12 (4-34) U/L Alkaline Phosphatase 77 (38-126) U/L Total Protein 4.8 L (6.3-8.2) g/dL Albumin 2.2 L (3.5-5.0) g/dL Current Medications Generic Name Dose Route Start Last Admin Trade Name Freq PRN Reason Stop Dose Admin Aspirin 81 mg 07/25/20 09:00 Aspirin 81 Mg PO DAILY [facility] Enoxaparin Sodium 40 mg 07/25/20 09:00 Enoxaparin 40 Mg/0.4 Ml Syringe SQ DAILY [facility] Ceftriaxone Sodium 1 gm/ 50 mls @ 100 mls/hr 07/24/20 11:00 Sodium Chloride IVPB Q12H [facility] Morphine Sulfate 4 mg 07/23/20 22:43 07/24/20 04:10 Morphine Sulfate 4 Mg/Ml Syringe IVP 4 mg Q4HR PRN Administration Pain Naloxone HCl 0.2 mg 07/23/20 22:50 Naloxone 0.4 Mg/Ml 1 Ml Vial IV Q2M PRN Opioid Reversal Ondansetron HCl 4 mg 07/23/20 22:50 Ondansetron 4 Mg/2 Ml Vial IVP Q8HR PRN Nausea And Vomiting Pantoprazole Sodium 40 mg 07/25/20 09:00 Pantoprazole 40 Mg/10 Ml Vial IVP DAILY [facility] Intake and Output 07/23/20 07/24/20 07/24/20 22:59 06:59 14:59 Other: Weight 73.028 kg 07/24/20 04:44 07/24/20 04:44
[2020-07-25 02:20] LABS: Appearance,Urine Cloudy (Clear); Bilirubin,Urine Negative (Negative); Blood,Urine Negative (Negative); Color,Urine Yellow; Glucose,Urine (UA) Negative (Negative); Ketones,Urine 1+ (Negative); Leukocyte Esterase,Urine Negative (Negative); Mucus,Urine Occasional /hpf; Nitrite,Urine Negative (Negative); PH, Urine 5.5 (5.0-8.0); Protein,Urine Trace (Negative); RBC,Urine 36 /hpf (0-5); Specific Gravity,Urine 1.026 (1.001-1.035); Squamous Epithelial Cell,Urine 10 /hpf (0-4); Urobilinogen,Urine <2.0 mg/dL (<2.0); WBC,Urine 4 /hpf (0-5)
[2020-07-25] MEDS: MORPHINE SULFATE 4 MG/ML SYRINGE IVP PRN ×2 (03:31→11:18)
[2020-07-25 06:44] LABS: ALT 14 U/L (4-34); AST 37 U/L (14-36); African American GFR (CKD) >90 (>60 ml/min/1.73 sqM); Albumin 2.1 g/dL (3.5-5.0); Albumin/Globulin Ratio 0.8; Alkaline Phosphatase 64 U/L (38-126); Anion Gap 3 mmol/L; Blood Urea Nitrogen 12 mg/dL (7-17); Calcium 7.8 mg/dL (8.4-10.2); Carbon Dioxide 28 mmol/L (22-30); Chloride 103 mmol/L (98-107); Globulin 2.5 g/dL; Glucose 79 mg/dL (74-99); Non-African American GFR(CKD) 90 (>60 ml/min/1.73 sqM); Potassium 4.1 mmol/L (3.5-5.1); Sodium 134 mmol/L (137-145); Total Bilirubin 0.1 mg/dL (0.2-1.3); Total Protein 4.6 g/dL (6.3-8.2)
[2020-07-25 09:35] LABS: HCT 39.1 % (37.2-46.3); HGB 11.9 g/dL (12.0-15.0); MCH 28.6 pg (27.0-32.0); MCHC 30.4 g/dL (32.0-37.0); Mean Platelet Volume 9.7 fL (9.5-12.2); Platelet Count 309 X 10*3/uL (140-440); RBC 4.16 X 10*6/uL (4.10-5.20); RDW 13.2 % (11.5-14.5); WBC 22.04 X 10*3/uL (4.50-10.00)
[2020-07-25 10:54] LABS: Basophils # (A) 0.07 X 10*3/uL (0.00-0.10); Basophils % (A) 0.3 %; Eosinophils # (A) 0.43 X 10*3/uL (0.04-0.35); Lymphocytes # (A) 0.87 X 10*3/uL (0.90-5.00); Lymphocytes % (A) 3.9 %; Monocytes # (A) 1.92 X 10*3/uL (0.20-1.00); Monocytes % (A) 8.7 %; Neutrophils # (A) 18.43 X 10*3/uL (1.80-7.70); Neutrophils % (A) 83.6 %
[2020-07-25 10:55] LABS: Acanthocytes 2+
--- NOTE | 2020-07-25 11:05 | P.CONS ---
History of Present Illness - Chief Complaint Medical debility - History of Present Illness I had the opportunity see patient for inpatient rehab consultation with regard to medical debility. Patient admitted to [facility] July 24 history of recent short admission and discharge related to UTI. Apparently failed return to home patient unable to get up and mobilize on her own. Seen in consultation by cardiology for patient known to them now with left arm pain and elevated troponin. Chest x-ray consistent with mild pulmonary fibrosis. PT and OT prescribed. Previous functional history as elicited from patient: 85-year-old right-handed white female who is lives in a first-floor apartment alone. Retired. Describes [id number] does most of the cooking and laundry and son does the driving. Patient independent with gait with 4 wheeled walker at home previously including independent with own dressing, toileting, sitdown shower. PCP Dr. Wall. Denies tobacco or alcohol. Review of Systems Review of systems: ENT: Denies sneezes or discharge. Eyes: Denies discharge or photophobia. Cardiac: Denies chest pain or palpitation. Pulmonary: Denies cough or shortness of breath. Breast: Denies discharge or lumps. Gastrointestinal: Denies nausea, emesis, constipation, diarrhea. Genitourinary: Denies discharge or frequency. Musculoskeletal: Denies muscle or bone aches. Neurologic: General weakness and inability to stand or ambulate. Endocrine: Denies shakes or sweats. Oncology: Denies cancers. Dermatologic: Denies rash, itching, pruritus. ALLERGY/immunology: Denies sneezes, rashes. Past Medical History Past Medical History: Chest Pain / Angina, Eye Disorder, Hyperlipidemia, Hypertension, Osteoarthritis (OA), Syncope, Thyroid Disorder Additional Past Medical History / Comment(s): Pt recently admitted to [facility] on 07/21/20 with L arm pain, mildly elevated troponin, abnormal EKG with T wave inversion in anterior leads and UTI. 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 History of Any Multi-Drug Resistant Organisms: None Reported Past Surgical History: Back Surgery, Hysterectomy, Joint Replacement, Orthopedic Surgery Additional Past Surgical History / Comment(s): thyroidectomy, edg/colonoscopy, leonor knee arthroscopies, leonor knee arthroplasties, sx to repair R fibula fracture. Past Anesthesia/Blood Transfusion Reactions: Motion Sickness Additional Past Anesthesia/Blood Transfusion Reaction / Comm: blood transfusion- no reaction Smoking Status: Never smoker - Past Family History Mother Family Medical History: Cancer Additional Family Medical History / Comment(s): breast cancer Sister(s) Family Medical History: Cancer Additional Family Medical History / Comment(s): breast cancer Father Family Medical History: Myocardial Infarction ([place]) Additional Family Medical History / Comment(s): from mi at age 62 Medications and Allergies Home Medications Medication Instructions Recorded Confirmed Type Ibuprofen [Advil] 200 mg PO Q8H PRN 07/21/20 07/23/20 History Aspirin 81 mg PO DAILY chew 07/23/20 07/23/20 Rx Cefuroxime Axetil [Ceftin] 500 mg PO BID 7 Days #14 tab 07/23/20 07/23/20 Rx Nitroglycerin Sl Tabs [Nitrostat] 0.4 mg SL Q5M PRN 07/23/20 07/23/20 History Allergies Allergy/AdvReac Type Severity Reaction Status Date / Time No Known Allergies Allergy Verified 07/23/20 23:06 Physical Exam Vitals: Vital Signs Temp Pulse Resp BP Pulse Ox 07/25/20 07:00 98.0 F 96 16 103/58 95 07/24/20 22:34 89 16 145/73 100 07/24/20 15:32 90 18 134/83 96 Intake and Output 07/24/20 07/25/20 07/25/20 22:59 06:59 14:59 Other: Weight 73.028 kg Skin: Atrophic, intact. General: Medium build and comfortable appearance. Head: Normocephalic, atraumatic. Eyes: Symmetric. Pupils equal round. Ears: Symmetric. Hearing within normal limits. Mouth: Clear. Neck: Supple. Carotid without bruit. Cardiac: Regular rate and rhythm. Lungs: Clear anteriorly and posteriorly. Abdomen: Soft active nontender. Extremities: Normal tone. Neurological: Mental status: Alert, cooperative, pleasant. Cranial nerves: Symmetric facial tone and trapezius. Motor: Oneill actively elevate all 4 limbs off of bed but legs at best antigravity. Sensation: Intact throughout. DTRs: Symmetric and equal throughout. Mobility: Requires physical assist for bed mobility. Results CBC & Chem 7: 07/25/20 05:44 07/25/20 05:44 Labs: Abnormal Lab Results - Last 24 Hours (Table) 07/25/20 07/25/20 07/25/20 Range/Units 01:30 05:44 05:44 WBC 22.04 H (4.50-10.00) X 10*3/uL Hgb 11.9 L (12.0-15.0) g/dL MCHC 30.4 L (32.0-37.0) g/dL Immature Gran # 0.32 H (0.00-0.04) X 10*3/uL Neutrophils # 18.43 H (1.80-7.70) X 10*3/uL Lymphocytes # 0.87 L (0.90-5.00) X 10*3/uL Monocytes # 1.92 H (0.20-1.00) X 10*3/uL Eosinophils # 0.43 H (0.04-0.35) X 10*3/uL Sodium 134 L (137-145) mmol/L Creatinine 0.47 L (0.52-1.04) mg/dL Calcium 7.8 L (8.4-10.2) mg/dL Total Bilirubin 0.1 L (0.2-1.3) mg/dL AST 37 H (14-36) U/L Total Protein 4.6 L (6.3-8.2) g/dL Albumin 2.1 L (3.5-5.0) g/dL Urine Appearance Cloudy H (Clear) Urine Protein Trace H (Negative) Urine Ketones 1+ H (Negative) Urine RBC 36 H (0-5) /hpf Ur Squamous Epith Cells 10 H (0-4) /hpf Urine Mucus Occasional H (None) /hpf Assessment and Plan (1) Urinary tract infection Current Visit: Yes Status: Acute Code(s): N39.0 - URINARY TRACT INFECTION, SITE NOT SPECIFIED SNOMED Code(s): 83952384 (2) Weakness Current Visit: Yes Status: Acute Code(s): R53.1 - WEAKNESS SNOMED Code(s): 45374887 (3) Elevated troponin Current Visit: No Status: Acute Code(s): R77.8 - OTHER SPECIFIED ABNORMALITIES OF PLASMA PROTEINS SNOMED Code(s): 646456223 Plan: Impression: 1. Medical debility. 2. UTI. 3. Elevated troponin. 4. Hypertension. 5. Dyslipidemia. 6. Osteoarthritis. 7. Hypothyroid. 8. Coronary disease including history of angina. 9. History of syncope. Comments and plan: At this time PT and OT prescribed. We'll need therapy notes for any possible inpatient rehabilitation admission. Should note that insurance typically has rules and regulations including a list of appropriate diagnoses which I do not believe UTI is 1. We will have to investigate for appropriate comorbidities.
[2020-07-25] MEDS: PANTOPRAZOLE 40 MG/10 ML VIAL IVP SCH (11:18)
[2020-07-25] MEDS: ASPIRIN 81 MG PO SCH (11:18)
[2020-07-25] MEDS: ENOXAPARIN 40 MG/0.4 ML SYRINGE SQ SCH (11:19)
--- NOTE | 2020-07-25 19:50 | P.PN ---
Subjective Progress Note Date: 07/25/20 This is an 85-year-old female patient who presented to ER with complaints of generalized weakness. Patient reports that she has been treated for a urinary tract infection outpatient with minimum symptom improvement. Patient reports that she has generalized weakness with arm pain. Patient has a past medical history of chest pain, hyperlipidemia, hypertension and anxiety. UA completed on 07/21/2020 showing large amount of leukocyte Estrace. White blood cell elevated at 20.38 COVID-19 negative. Troponins mildly elevated 0.057 and 0.108. Lactic acid 1.3. Patient's temp 97.7. Heart rate 79, blood pressure 134/66. Cardiology services will be consulted. Patient started on Rocephin. Urine cult ure ordered. At this time patient denies chest pain or shortness of breath. Patient denies nausea vomiting or diarrhea. On 07/25/2020 Patient was seen and examined on the medical floor, she is alert slightly confused in no distress, she is complaining of generalized weakness otherwise she denies any complaints there is no fever or chills no headache or dizziness no chest pain no shortness of breath no palpitation no cough no nausea or vomiting no abdominal pain no diarrhea no blood in the stools no burning with urination no frequency or urgency and no hematuria, there is no weakness or numb ness in any of the extremities no change in vision speech or gait. White blood count is elevated at 22.04 with significant left shift. Patient is maintained on IV Rocephin infectious disease consultation was requested, kidney ultrasound was requested to assess cause of recurrent urinary tract infection. Patient was recently discharged from the hospital at that time she had a urinary tract infec tion urine culture was positive for E. coli that was sensitive to all antibiotics, she received IV Rocephin and was discharged home on oral Ceftin, however patient did not get her prescription and return to the hospital within less than 24 hours, due to severe fatigue. Objective - Vital Signs Vital signs: Vital Signs Temp 97.7 F 07/24/20 07:35 Pulse 89 07/24/20 22:34 Resp 16 07/24/20 22:34 BP 145/73 07/24/20 22:34 Pulse Ox 100 07/24/20 22:34 Intake & Output 07/24/20 07/24/20 07/25/20 06:59 18:59 06:59 Weight 73.028 kg - Exam Head normocephalic Neck supple Lungs clear to auscultation bilaterally no wheezing or crackles Heart regular rate and rhythm S1-S2, no rub or gallop Abdomen is soft nontender nondistended positive bowel sounds no hepatosplenomegaly Extremities no edema Neuro alert and orientated to 3 - Labs CBC & Chem 7: 07/25/20 05:44 07/25/20 05:44 Labs: Abnormal Lab Results - Last 24 Hours (Table) 07/24/20 07/25/20 Range/Units 06:53 01:30 Troponin I 0.108 H* (0.000-0.034) ng/mL Urine Appearance Cloudy H (Clear) Urine Protein Trace H (Negative) Urine Ketones 1+ H (Negative) Urine RBC 36 H (0-5) /hpf Ur Squamous Epith Cells 10 H (0-4) /hpf Urine Mucus Occasional H (None) /hpf Assessment and Plan Assessment: 1. Generalized weakness likely secondary to urinary tract infection 2. Urinary tract infection. Urine culture ordered. Patient started on Rocephin 3. Elevated troponins. Cardiology service is consulted 4. History of essential hypertension 5. History of anxiety DVT prophylaxis Lovenox. GI prophylaxis Protonix. Cardiology services consulted Rocephin for urinary tract infection Urine culture ordered PT OT services consulted
--- NOTE | 2020-07-25 20:00 | P.PN ---
Progress Note - Text Progress Note Date: 07/25/20 Patient was seen and examined today She has urinary tract infection with evidence of sepsis, with worsening leukocytosis up to 22,000 today Patient was started on IV Rocephin in the emergency room will add IV Levaquin 500 mg daily Infectious disease consultation was requested Will check lactic acid Will continue to follow very closely. Patient meets criteria for inpatient admission This was discussed was [facility] physician at [phone] and she is agreeable to inpatient status
[2020-07-25] MEDS: LEVOFLOXACIN 500MG-D5W PMX 500 MG in DEXTROSE/WATER 1 100ML.BAG IVPB SCH (20:19)
--- NOTE | 2020-07-26 07:48 | US ---
EXAMINATION TYPE: US kidneys/renal and bladder DATE OF EXAM: 07/26/2020 COMPARISON: NONE CLINICAL HISTORY: Recurrent urinary tract infection. UTI limited due to body habitus and rib shadowin g EXAM MEASUREMENTS: Right Kidney: 10.0 x 4.9 x 3.4 cm Left Kidney: 9.0 x 4.5 x 3.3 cm Right Kidney: No hydronephrosis or masses seen Left Kidney: No hydronephrosis or masses seen Bladder: Anechoic Bilateral Jets seen: Yes There is no evidence for hydronephrosis at this point in time. No nephrolithiasis is seen. No lety s are identified on images saved. The urinary bladder is satisfactorily distended. Bilateral ureter al jets are seen. IMPRESSION: No hydronephrosis is noted bilaterally
[2020-07-26] MEDS: IOPAMIDOL CONTRAST (ORAL USE) VIAL PO PRN ×2 (08:01→08:57)
[2020-07-26] MEDS: ENOXAPARIN 40 MG/0.4 ML SYRINGE SQ SCH (08:02)
[2020-07-26] MEDS: PANTOPRAZOLE 40 MG/10 ML VIAL IVP SCH (08:02)
[2020-07-26] MEDS: ASPIRIN 81 MG PO SCH (08:02)
--- NOTE | 2020-07-26 08:38 | CONS ---
CONSULTATION DATE OF SERVICE: 07/25/2020 REASON FOR STAY: UTI and elevated white count. HISTORY OF PRESENT ILLNESS: The patient is an 85-year-old female who was recently admitted to the hospital from 07/21 until 07/23/2020. The patient was treated for urinary tract infection. The patient presented back to the hospital early the next day for evaluation of increasing weakness and not feeling well. The patient complained of some pain in the left arm. No history of any trauma. The patient denies having any headache. The patient denies having any URI symptoms. No chest pain, shortness of breath or cough. Currently on room air. Denies having nausea, abdominal pain. No diarrhea. With these symptoms, the patient was evaluated by the ER physician on arrival to the ER, the patient was afebrile and no fever has been recorded subsequently. The patient did have white count of 16. Admission white count 20,000, came down to 16. However, it is up to around 22,000 today that has prompted this infectious disease consultation. Patient did have slightly elevated BUN, creatinine has been normal. Troponin is mildly elevated. Patient UA done on July 21 admission did grow E coli which is sensitive pathogen. Repeat urine showing 26 RBCs only 4 WBC. She has been treated with Rocephin and Levaquin. Chest x-ray negative for any acute infiltrate. Infectious Disease was consulted for further management of antibiotic therapy. This patient has elevated white count. REVIEW OF SYSTEMS: Positive points have been mentioned in HPI. Rest of systems are negative. PAST MEDICAL HISTORY: Significant for recurrent urinary tract infection, history of angina, hypertension, hyperlipidemia, bilateral cataract surgery. PAST SURGICAL HISTORY: Back surgery, hysterectomy, thyroidectomy, EGD, colonoscopy and arthroplasty. SOCIAL HISTORY: The patient denies smoking, drinking or drug use. FAMILY HISTORY: Mother with history of breast cancer. Sister also history of breast cancer. ALLERGIES: No known drug allergies. MEDICATIONS: The patient is currently on aspirin, Rocephin 1 g daily. She is on Lovenox, Levaquin, morphine sulfate, Narcan, Protonix. PHYSICAL EXAMINATION: Blood pressure is 118/68, pulse of 90, temperature 98. She is 95% on room air. General description is an elderly female lying in bed in no distress. No tachypnea or accessory muscles of respiration use. HEENT: Examination shows no pallor or scleral icterus. Oral mucous membrane is dry. NECK: Trachea central. No thyromegaly. LUNGS: Unlabored breathing, decreased breath sounds. No wheeze or crackles. HEART S1, S2. Regular rate and rhythm. ABDOMEN: Soft, no tenderness. No guarding. No rigidity. EXTREMITIES: No edema of the feet. SKIN examination: No rash or mass palpable. NEUROLOGIC: The patient is awake, alert, oriented times three. Mood and affect normal. LABS: Hemoglobin is 11.8, white count 22.04, BUN of 12, creatinine 0.47. AST is mildly elevated. Troponin is mildly elevated. Urine is mildly positive. DIAGNOSTIC IMPRESSION AND PLAN: Patient admitted to the hospital with generalized weakness in this patient who was recently admitted for a urinary tract infection. Urine culture did grow E coli which is sensitive pathogen and the patient is on Rocephin. However, the white count showing upward trend. Chest x-ray was negative and the patient did not have any evidence of cellulitis or other obvious focus of infection. PLAN: 1. We will check a CT of abdomen and pelvis to rule out any intraabdominal pathology with contrast. 2. Gentle IV fluid. 3. Continue Rocephin and Levaquin, while waiting for the culture to finalize. 4. We will follow on clinical condition and further adjust medication if needed. Thank you for this consultation. Will follow this patient along with you. MMODL / IJN: [id number] / MTDD
--- NOTE | 2020-07-26 10:04 | CT ---
EXAMINATION TYPE: CT abdomen pelvis w con DATE OF EXAM: 07/26/2020 HISTORY: leukocytosis CT DLP: 1228.7mGycm Automated Exposure Control for Dose Reduction was Utilized. CONTRAST: CT scan of the abdomen and pelvis is performed with oral and with IV Contrast, patient injected with 100ml mL of Isovue 300. COMPARISON: None. FINDINGS: LUNG BASES: Tiny bilateral pleural effusions. Mild scattered linear atelectasis and/or scarring. LIVER/GB: No significant abnormality is appreciated. PANCREAS: Severe fat replaced atrophy. SPLEEN: No significant abnormality is seen. ADRENALS: No significant abnormality is seen. KIDNEYS: Symmetric cortical medullary uptake and excretion without hydronephrosis seen bilaterally. T here is 1.2 cm thin-walled cyst in the left kidney midpole level image 23 series 201. BOWEL: Oral contrast reaches level of the left and sigmoid colonic junction. No suspicious small or l arge bowel dilatation. Normal contrast-filled appendix posteriorly from the cecum. Sigmoid colonic di verticula. Mild to moderate sigmoid rectal colonic fecal prominence. UTERUS/ADNEXA: Uterus surgically absent. Scattered bilateral pelvic phleboliths. LYMPH NODES: No greater than 1cm abdominal or pelvic lymph nodes are appreciated. OSSEOUS STRUCTURES: Localizer shows fixation hardware through healed fracture right mid femur. Surgic al change is noted in the lower lumbar spine. Posterior element ossific fusion. Marked disc space lizzette rowing L4-5 level. Calcified disc with moderate disc space narrowing L5-S1 level. Moderate to severe disc space narrowing with vacuum disc phenomenon L2-L3 and L3-L4 levels. Moderate multilevel anterior and lateral spurring. Moderate to severe spurring and narrowing in both hip joints. OTHER: Moderate calcified plaque of the distal abdominal aorta extends into branch vessels. Mild diff use subcutaneous edema and/or soft tissue anasarca. IMPRESSION: No acute finding is seen to account for patient's symptoms of leukocytosis. No well-forme d fluid collection or abscess. Mild to moderate distal colonic fecal stasis. No bowel obstruction.
--- NOTE | 2020-07-26 10:29 | P.PN ---
Subjective Progress Note Date: 07/26/20 Principal diagnosis: Generalized weakness This is an 85-year-old female patient who presented to ER with complaints of generalized weakness. Patient reports that she has been treated for a urinary tract infection outpatient with minimum symptom improvement. Patient reports that she has generalized weakness with arm pain. Patient has a past medical history of chest pain, hyperlipidemia, hypertension and anxiety. UA completed on 07/21/2020 showing large amount of leukocyte Estrace. White blood cell elevated at 20.38 COVID-19 negative. Troponins mildly elevated 0.057 and 0.108. Lactic acid 1.3. Patient's temp 97.7. Heart rate 79, blood pressure 134/66. Cardiology services will be consulted. Patient started on Rocephin. Urine culture ordered. At this time patient denies chest pain or shortness of breath. Patient denies nausea vomiting or diarrhea. On 07/25/2020 Patient was seen and examined on the medical floor, she is alert slightly confused in no distress, she is complaining of generalized weakness otherwise she denies any complaints there is no fever or chills no headache or dizziness no chest pain no shortness of breath no palpitation no cough no nausea or vomiting no abdominal pain no diarrhea no blood in the stools no burning with urination no frequency or urgency and no hematuria, there is no weakness or numbness in any of the extremities no change in vision speech or gait. White blood count is elevated at 22.04 with significant left shift. Patient is maintained on IV Rocephin infectious disease consultation was requested, kidney ultrasound was requested to assess cause of recurrent urinary tract infection. Patient was recently discharged from the hospital at that time she had a urinary tract infection urine culture was positive for E. coli that was sensitive to all antibiotics, she received IV Rocephin and was discharged home on oral Ceftin, however patient did not get her prescription and return to the hospital within less than 24 hours, due to severe fatigue. On 07/26/2020 patient is alert and oriented. Patient returning from CT of abdomen. CT of abdomen ordered per infectious disease. Labs today depending. Patient remains on IV Levaquin and Rocephin. Infectious disease is following. At this time patient denies chest pain or shortness of breath. Patient denies nausea vomiting or diarrhea. Patient denies any urinary burning or frequency. Patient was seen and cleared by cardiology services Objective - Vital Signs Vital signs: Vital Signs Temp 97.6 F 07/26/20 08:00 Pulse 97 07/26/20 08:00 Resp 18 07/26/20 08:00 BP 158/89 07/26/20 08:00 Pulse Ox 96 07/26/20 08:00 Intake & Output 07/25/20 07/26/20 07/26/20 18:59 06:59 18:59 Weight 73.028 kg 82 kg Other: Voiding Method Bedside Commode Bedside Commode # Voids 2 # Bowel Movements 0 - Exam Head normocephalic Neck supple Lungs clear to auscultation bilaterally no wheezing or crackles Heart regular rate and rhythm S1-S2, no rub or gallop Abdomen is soft nontender nondistended positive bowel sounds no hepatosplenomegaly Extremities no edema Neuro alert and orientated to 3 - Labs CBC & Chem 7: 07/25/20 05:44 07/25/20 05:44 Labs: Abnormal Lab Results - Last 24 Hours (Table) 07/25/20 Range/Units 05:44 Immature Gran # 0.32 H (0.00-0.04) X 10*3/uL Neutrophils # 18.43 H (1.80-7.70) X 10*3/uL Lymphocytes # 0.87 L (0.90-5.00) X 10*3/uL Monocytes # 1.92 H (0.20-1.00) X 10*3/uL Eosinophils # 0.43 H (0.04-0.35) X 10*3/uL Assessment and Plan Assessment: 1. Generalized weakness likely secondary to urinary tract infection 2. Urinary tract infection with sepsis. Urine culture ordered. Patient started on Rocephin and Levaquin added. Infectious disease is following 3. Elevated troponins. She was evaluated by cardiology services and cleared 4. History of essential hypertension 5. History of anxiety DVT prophylaxis Lovenox. GI prophylaxis Protonix. Infectious services following CT of abdomen ordered per ID Patient remains on Levaquin and Rocephin PT and OT consulted
[2020-07-26 12:22] LABS: Basophils # (A) 0.06 X 10*3/uL (0.00-0.10); Basophils % (A) 0.4 %; Eosinophils # (A) 0.42 X 10*3/uL (0.04-0.35); Eosinophils % (A) 2.7 %; HCT 37.8 % (37.2-46.3); HGB 11.4 g/dL (12.0-15.0); Lymphocytes # (A) 0.81 X 10*3/uL (0.90-5.00); Lymphocytes % (A) 5.3 %; MCH 28.5 pg (27.0-32.0); MCHC 30.2 g/dL (32.0-37.0); MCV 94.5 fL (80.0-97.0); Mean Platelet Volume 9.7 fL (9.5-12.2); Monocytes # (A) 1.69 X 10*3/uL (0.20-1.00); Neutrophils # (A) 12.08 X 10*3/uL (1.80-7.70); Neutrophils % (A) 78.9 %; Platelet Count 265 X 10*3/uL (140-440); RDW 13.1 % (11.5-14.5); WBC 15.32 X 10*3/uL (4.50-10.00)
--- NOTE | 2020-07-26 19:02 | PN ---
PROGRESS NOTE DATE OF SERVICE: 07/26/2020 REASON FOR FOLLOWUP: UTI and leukocytosis. INTERVAL HISTORY: The patient is afebrile. The patient is breathing comfortably. The patient denies having any chest pain. No shortness of breath or cough. No nausea, vomiting, abdominal pain or diarrhea. PHYSICAL EXAMINATION: Blood pressure 116/76, pulse of 75, temp is 97.7 she is 100% on 2 L nasal cannula. General description is an elderly female lying in in no distress. Respiratory system: Unlabored breathing, clear to auscultation anteriorly. Heart S1, S2. Regular rate and rhythm. Abdomen soft, no tenderness. No guarding or rigidity. Extremities: No edema of the feet. LABS: Hemoglobin 11.4, white count 15.32. CT of abdomen and pelvis with no acute abnormality. DIAGNOSTIC IMPRESSION AND PLAN: Patient admitted to the hospital with generalized weakness which is multifactorial in this patient who did have a UTI with culture positive for E coli and no other obvious focus of infection. CT of abdomen and pelvis was negative. The patient is on Rocephin, to continue. White count showing a downward trend and monitor clinical course closely. MMODL / IJN: [id number] /
[2020-07-26] MEDS: LEVOFLOXACIN 500MG-D5W PMX 500 MG in DEXTROSE/WATER 1 100ML.BAG IVPB SCH (20:05)
[2020-07-27 04:36] LABS: African American GFR (CKD) 101.6 (60.0-200.0); Albumin 2.1 g/dL (3.80-4.90); Albumin/Globulin Ratio 1.17 (1.60-3.17); Anion Gap 3.5 mmol/L (4.00-12.00); Calcium 8.1 mg/dL (8.7-10.3); Carbon Dioxide 30.5 mmol/L (21.6-31.8); Globulin 1.8 g/dL (1.6-3.3); Non-African American GFR(CKD) 87.6 (60.0-200.0); Potassium 4.2 mmol/L (3.5-5.5); Total Bilirubin 0.2 mg/dL (0.2-1.2); Total Protein 3.9 g/dL (6.2-8.2)
[2020-07-27 06:53] LABS: ALT 13 U/L (4-34); AST 26 U/L (14-36); African American GFR (CKD) >90 (>60 ml/min/1.73 sqM); Albumin 1.9 g/dL (3.5-5.0); Albumin/Globulin Ratio 0.8; Alkaline Phosphatase 46 U/L (38-126); Anion Gap 0 mmol/L; Blood Urea Nitrogen 12 mg/dL (7-17); Calcium 7.7 mg/dL (8.4-10.2); Carbon Dioxide 32 mmol/L (22-30); Chloride 101 mmol/L (98-107); Globulin 2.3 g/dL; Glucose 90 mg/dL (74-99); Non-African American GFR(CKD) 90 (>60 ml/min/1.73 sqM); Sodium 133 mmol/L (137-145); Total Bilirubin 0.1 mg/dL (0.2-1.3); Total Protein 4.2 g/dL (6.3-8.2)
[2020-07-27] MEDS: ENOXAPARIN 40 MG/0.4 ML SYRINGE SQ SCH (08:25)
[2020-07-27] MEDS: ASPIRIN 81 MG PO SCH (08:26)
[2020-07-27] MEDS: PANTOPRAZOLE 40 MG/10 ML VIAL IVP SCH (08:26)
[2020-07-27] MEDS: ACETAMINOPHEN TAB 325 MG TAB PO PRN ×2 (08:36→20:45)
[2020-07-27 09:23] LABS: Basophils # (A) 0.06 X 10*3/uL (0.00-0.10); Basophils % (A) 0.4 %; Eosinophils # (A) 0.51 X 10*3/uL (0.04-0.35); Eosinophils % (A) 3.7 %; HCT 35.3 % (37.2-46.3); HGB 10.8 g/dL (12.0-15.0); Lymphocytes # (A) 0.79 X 10*3/uL (0.90-5.00); Lymphocytes % (A) 5.7 %; MCH 28.7 pg (27.0-32.0); MCHC 30.6 g/dL (32.0-37.0); MCV 93.9 fL (80.0-97.0); Mean Platelet Volume 9.5 fL (9.5-12.2); Monocytes # (A) 1.59 X 10*3/uL (0.20-1.00); Monocytes % (A) 11.6 %; Neutrophils # (A) 10.51 X 10*3/uL (1.80-7.70); Neutrophils % (A) 76.4 %; Platelet Count 259 X 10*3/uL (140-440); RBC 3.76 X 10*6/uL (4.10-5.20); RDW 13.1 % (11.5-14.5); WBC 13.76 X 10*3/uL (4.50-10.00)
[2020-07-27] MEDS: LEVOFLOXACIN 500MG-D5W PMX 500 MG in DEXTROSE/WATER 1 100ML.BAG IVPB SCH (20:46)
[2020-07-28] MEDS: HYDROcodone/APAP 5-325MG 1 EACH TAB PO PRN (02:31)
[2020-07-28] MEDS: PANTOPRAZOLE 40 MG/10 ML VIAL IVP SCH (07:21)
[2020-07-28] MEDS: ENOXAPARIN 40 MG/0.4 ML SYRINGE SQ SCH (07:21)
[2020-07-28] MEDS: ASPIRIN 81 MG PO SCH (07:22)
--- NOTE | 2020-07-28 09:07 | P.PN ---
Subjective Progress Note Date: 07/27/20 This is an 85-year-old female patient who presented to ER with complaints of generalized weakness. Patient reports that she has been treated for a urinary tract infection outpatient with minimum symptom improvement. Patient reports that she has generalized weakness with arm pain. Patient has a past medical history of chest pain, hyperlipidemia, hypertension and anxiety. UA completed on 07/21/2020 showing large amount of leukocyte Estrace. White blood cell elevated at 20.38 COVID-19 negative. Troponins mildly elevated 0.057 and 0.108. Lactic acid 1.3. Patient's temp 97.7. Heart rate 79, blood pressure 134/66. Cardiology services will be consulted. Patient started on Rocephin. Urine cult ure ordered. At this time patient denies chest pain or shortness of breath. Patient denies nausea vomiting or diarrhea. On 07/25/2020 Patient was seen and examined on the medical floor, she is alert slightly confused in no distress, she is complaining of generalized weakness otherwise she denies any complaints there is no fever or chills no headache or dizziness no chest pain no shortness of breath no palpitation no cough no nausea or vomiting no abdominal pain no diarrhea no blood in the stools no burning with urination no frequency or urgency and no hematuria, there is no weakness or numb ness in any of the extremities no change in vision speech or gait. White blood count is elevated at 22.04 with significant left shift. Patient is maintained on IV Rocephin infectious disease consultation was requested, kidney ultrasound was requested to assess cause of recurrent urinary tract infection. Patient was recently discharged from the hospital at that time she had a urinary tract infec tion urine culture was positive for E. coli that was sensitive to all antibiotics, she received IV Rocephin and was discharged home on oral Ceftin, however patient did not get her prescription and return to the hospital within less than 24 hours, due to severe fatigue. On 07/26/2020 patient is alert and oriented. Patient returning from CT of abdomen. CT of abdomen ordered per infectious disease. Labs today depending. Patient remains on IV Levaquin and Rocephin. Infectious disease is following. At this time patient denies chest pain or shortness of breath. Patient denies nausea vomiting or diarrhea. Patient denies any urinary burning or frequency. Patient was seen and cleared by cardiology services On 07/27/2020 Patient was seen and examined on the medical floor, she is alert s lightly confused in no distress, she is complaining of generalized weakness otherwise she denies any complaints there is no fever or chills no headache or dizziness no chest pain no shortness of breath no palpitation no cough no nausea or vomiting no abdominal pain no diarrhea no blood in the stools no burning with urination no frequency or urgency and no hematuria, there is no weakness or numbness in any of the extremities no change in vision speech or gait. WBC improving continue current antibiotics, will follow. Objective - Vital Signs Vital signs: Vital Signs Temp 98.4 F 07/27/20 08:00 Pulse 83 07/27/20 08:00 Resp 17 07/27/20 08:00 BP 101/61 07/27/20 08:00 Pulse Ox 99 07/27/20 08:00 Intake & Output 07/26/20 07/27/20 07/27/20 18:59 06:59 18:59 Intake Total 290 Output Total 1 2 Balance 289 -2 Intake: IV 50 cefTRIAXone 1 gm In 50 Sodium Chloride 0.9% 50 ml @ 100 mls/hr IVPB Q12H [facility] Rx#:[id number] Oral 240 Output: Stool 1 2 Other: Voiding Method Bedside Commode Bedside Commode # Voids 4 2 # Bowel Movements 1 1 - Exam Head normocephalic Neck supple Lungs clear to auscultation bilaterally no wheezing or crackles Heart regular rate and rhythm S1-S2, no rub or gallop Abdomen is soft nontender nondistended positive bowel sounds no hepatosplenomegaly Extremities no edema Neuro alert and orientated to 3 - Labs CBC & Chem 7: 07/27/20 05:51 07/27/20 05:51 Labs: Abnormal Lab Results - Last 24 Hours (Table) 07/26/20 07/26/20 07/27/20 Range/Units 08:01 08:01 05:51 WBC 15.32 H 13.76 H (4.50-10.00) X 10*3/uL RBC 4.00 L 3.76 L (4.10-5.20) X 10*6/uL Hgb 11.4 L 10.8 L (12.0-15.0) g/dL Hct 35.3 L (37.2-46.3) % MCHC 30.2 L 30.6 L (32.0-37.0) g/dL Immature Gran # 0.26 H 0.30 H (0.00-0.04) X 10*3/uL Neutrophils # 12.08 H 10.51 H (1.80-7.70) X 10*3/uL Lymphocytes # 0.81 L 0.79 L (0.90-5.00) X 10*3/uL Monocytes # 1.69 H 1.59 H (0.20-1.00) X 10*3/uL Eosinophils # 0.42 H 0.51 H (0.04-0.35) X 10*3/uL Sodium (137-145) mmol/L Carbon Dioxide (22-30) mmol/L Anion Gap 3.50 L (4.00-12.00) mmol/L Creatinine 0.5 L (0.6-1.5) mg/dL BUN/Creatinine Ratio 30.00 H (12.00-20.00) Ratio Calcium 8.1 L (8.7-10.3) mg/dL Total Bilirubin (0.2-1.3) mg/dL Total Protein 3.9 L (6.2-8.2) g/dL Albumin 2.10 L (3.80-4.90) g/dL Albumin/Globulin Ratio 1.17 L (1.60-3.17) g/dL 07/27/20 Range/Units 05:51 WBC (4.50-10.00) X 10*3/uL RBC (4.10-5.20) X 10*6/uL Hgb (12.0-15.0) g/dL Hct (37.2-46.3) % MCHC (32.0-37.0) g/dL Immature Gran # (0.00-0.04) X 10*3/uL Neutrophils # (1.80-7.70) X 10*3/uL Lymphocytes # (0.90-5.00) X 10*3/uL Monocytes # (0.20-1.00) X 10*3/uL Eosinophils # (0.04-0.35) X 10*3/uL Sodium 133 L (137-145) mmol/L Carbon Dioxide 32 H (22-30) mmol/L Anion Gap (4.00-12.00) mmol/L Creatinine 0.47 L (0.6-1.5) mg/dL BUN/Creatinine Ratio (12.00-20.00) Ratio Calcium 7.7 L (8.7-10.3) mg/dL Total Bilirubin 0.1 L (0.2-1.3) mg/dL Total Protein 4.2 L (6.2-8.2) g/dL Albumin 1.9 L (3.80-4.90) g/dL Albumin/Globulin Ratio (1.60-3.17) g/dL Assessment and Plan Assessment: 1. Generalized weakness likely secondary to urinary tract infection 2. Urinary tract infection with sepsis. Urine culture ordered. Patient star kp on Rocephin and Levaquin added. Infectious disease is following 3. Elevated troponins. She was evaluated by cardiology services and cleared 4. History of essential hypertension 5. History of anxiety DVT prophylaxis Lovenox. GI prophylaxis Protonix. Infectious services following CT of abdomen ordered per ID Patient remains on Levaquin and Rocephin PT and OT consulted
[2020-07-28 12:25] LABS: Basophils # (A) 0.06 X 10*3/uL (0.00-0.10); Basophils % (A) 0.5 %; Eosinophils # (A) 0.56 X 10*3/uL (0.04-0.35); Eosinophils % (A) 4.8 %; HCT 33.3 % (37.2-46.3); HGB 10.4 g/dL (12.0-15.0); Lymphocytes # (A) 1.02 X 10*3/uL (0.90-5.00); Lymphocytes % (A) 8.8 %; MCH 29.2 pg (27.0-32.0); MCHC 31.2 g/dL (32.0-37.0); MCV 93.5 fL (80.0-97.0); Mean Platelet Volume 9.6 fL (9.5-12.2); Monocytes # (A) 1.42 X 10*3/uL (0.20-1.00); Monocytes % (A) 12.3 %; Neutrophils # (A) 8.24 X 10*3/uL (1.80-7.70); Neutrophils % (A) 71.1 %; Platelet Count 246 X 10*3/uL (140-440); RBC 3.56 X 10*6/uL (4.10-5.20); WBC 11.59 X 10*3/uL (4.50-10.00)
[2020-07-28 12:48] LABS: African American GFR (CKD) 120.2 (60.0-200.0); Albumin 2.1 g/dL (3.80-4.90); Albumin/Globulin Ratio 1.05 (1.60-3.17); Anion Gap 3.1 mmol/L (4.00-12.00); Calcium 7.8 mg/dL (8.7-10.3); Carbon Dioxide 32.9 mmol/L (21.6-31.8); Non-African American GFR(CKD) 103.7 (60.0-200.0); Potassium 4.2 mmol/L (3.5-5.5); Total Bilirubin 0.2 mg/dL (0.3-1.2); Total Protein 4.1 g/dL (6.2-8.2)
--- NOTE | 2020-07-28 14:49 | P.PN ---
Subjective Progress Note Date: 07/28/20 This is an 85-year-old female patient who presented to ER with complaints of generalized weakness. Patient reports that she has been treated for a urinary tract infection outpatient with minimum symptom improvement. Patient reports that she has generalized weakness with arm pain. Patient has a past medical history of chest pain, hyperlipidemia, hypertension and anxiety. UA completed on 07/21/2020 showing large amount of leukocyte Estrace. White blood cell elevated at 20.38 COVID-19 negative. Troponins mildly elevated 0.057 and 0.108. Lactic acid 1.3. Patient's temp 97.7. Heart rate 79, blood pressure 134/66. Cardiology services will be consulted. Patient started on Rocephin. Urine cult ure ordered. At this time patient denies chest pain or shortness of breath. Patient denies nausea vomiting or diarrhea. On 07/25/2020 Patient was seen and examined on the medical floor, she is alert slightly confused in no distress, she is complaining of generalized weakness otherwise she denies any complaints there is no fever or chills no headache or dizziness no chest pain no shortness of breath no palpitation no cough no nausea or vomiting no abdominal pain no diarrhea no blood in the stools no burning with urination no frequency or urgency and no hematuria, there is no weakness or numb ness in any of the extremities no change in vision speech or gait. White blood count is elevated at 22.04 with significant left shift. Patient is maintained on IV Rocephin infectious disease consultation was requested, kidney ultrasound was requested to assess cause of recurrent urinary tract infection. Patient was recently discharged from the hospital at that time she had a urinary tract infec tion urine culture was positive for E. coli that was sensitive to all antibiotics, she received IV Rocephin and was discharged home on oral Ceftin, however patient did not get her prescription and return to the hospital within less than 24 hours, due to severe fatigue. On 07/26/2020 patient is alert and oriented. Patient returning from CT of abdomen. CT of abdomen ordered per infectious disease. Labs today depending. Patient remains on IV Levaquin and Rocephin. Infectious disease is following. At this time patient denies chest pain or shortness of breath. Patient denies nausea vomiting or diarrhea. Patient denies any urinary burning or frequency. Patient was seen and cleared by cardiology services On 07/27/2020 Patient was seen and examined on the medical floor, she is alert s lightly confused in no distress, she is complaining of generalized weakness otherwise she denies any complaints there is no fever or chills no headache or dizziness no chest pain no shortness of breath no palpitation no cough no nausea or vomiting no abdominal pain no diarrhea no blood in the stools no burning with urination no frequency or urgency and no hematuria, there is no weakness or numbness in any of the extremities no change in vision speech or gait. WBC improving continue current antibiotics, will follow. On 07/28/2020 Patient was seen and examined on the medical floor, he is alert and oriented x 3 in no distress, he denies any complaints there is no fever or chills no headache or dizziness no chest pain no shortness of breath no palpitation no cough no nausea or vomiting no abdominal pain no diarrhea no blood in the stools no burning with urination no frequency or urgency and no hematuria, patient is improving gradually white blood count is coming down, physical therapy is following, possible discharge in the next 1-2 days, will assess if patient needs to be in rehab unit post discharge Objective - Vital Signs Vital signs: Vital Signs Temp 98.2 F 07/28/20 08:00 Pulse 74 07/28/20 08:00 Resp 16 07/28/20 08:00 BP 122/73 07/28/20 08:00 Pulse Ox 93 L 07/28/20 08:00 Intake & Output 07/27/20 07/28/20 07/28/20 18:59 06:59 18:59 Weight 91.5 kg Other: Voiding Method Bedside Commode # Voids 1 2 # Bowel Movements 1 - Exam Head normocephalic Neck supple Lungs clear to auscultation bilaterally no wheezing or crackles Heart regular rate and rhythm S1-S2, no rub or gallop Abdomen is soft nontender nondistended positive bowel sounds no hepatosplenomegaly Extremities no edema Neuro alert and orientated to 3 - Labs CBC & Chem 7: 07/28/20 07:05 07/28/20 07:05 Labs: Abnormal Lab Results - Last 24 Hours (Table) 07/27/20 Range/Units 05:51 WBC 13.76 H (4.50-10.00) X 10*3/uL RBC 3.76 L (4.10-5.20) X 10*6/uL Hgb 10.8 L (12.0-15.0) g/dL Hct 35.3 L (37.2-46.3) % MCHC 30.6 L (32.0-37.0) g/dL Immature Gran # 0.30 H (0.00-0.04) X 10*3/uL Neutrophils # 10.51 H (1.80-7.70) X 10*3/uL Lymphocytes # 0.79 L (0.90-5.00) X 10*3/uL Monocytes # 1.59 H (0.20-1.00) X 10*3/uL Eosinophils # 0.51 H (0.04-0.35) X 10*3/uL Assessment and Plan Assessment: 1. Generalized weakness likely secondary to urinary tract infection 2. Urinary tract infection with sepsis. Urine culture ordered. Patient started on Rocephin and Levaquin added. Infectious disease is following 3. Elevated troponins. She was evaluated by cardiology services and cleared 4. History of essential hypertension 5. History of anxiety DVT prophylaxis Lovenox. GI prophylaxis Protonix. Infectious services following CT of abdomen ordered per ID Patient remains on Levaquin and Rocephin PT and OT consulted
--- NOTE | 2020-07-28 19:21 | PN ---
PROGRESS NOTE DATE OF SERVICE: 07/28/2020 REASON FOR FOLLOWUP: Leukocytosis and UTI. INTERVAL HISTORY: The patient is afebrile. The patient is breathing comfortably. The patient denies having any chest pain. No shortness of breath or cough. No abdominal pain or diarrhea. PHYSICAL EXAMINATION: Blood pressure 115/70 with a pulse of 70, temperature 97.9. She is 98% on room air. General description is an elderly female lying in bed in no distress. Respiratory system: Unlabored breathing, clear to auscultation anteriorly. Heart S1, S2. Regular rate and rhythm. Abdomen soft, no tenderness. Extremities: No edema of the feet. LABS: Hemoglobin is 10.4, white count 11.59, BUN of 9, creatinine 0.3. DIAGNOSTIC IMPRESSION AND PLAN: Patient with leukocytosis more likely related to UTI, overall improvement on Levaquin therapy. She will start a short course of oral Ceftin and close outpatient monitoring. MMODL / IJN: [id number] /
[2020-07-28] MEDS: LEVOFLOXACIN 500 MG TAB PO SCH (21:06)
[2020-07-29] MEDS: HYDROcodone/APAP 5-325MG 1 EACH TAB PO PRN ×2 (03:52→19:49)
[2020-07-29] MEDS: ASPIRIN 81 MG PO SCH (07:45)
[2020-07-29] MEDS: ENOXAPARIN 40 MG/0.4 ML SYRINGE SQ SCH (07:45)
[2020-07-29] MEDS: PANTOPRAZOLE 40 MG TABLET PO SCH (07:45)
--- NOTE | 2020-07-29 12:37 | PN ---
PROGRESS NOTE DATE OF SERVICE: 07/29/2020 REASON FOR FOLLOWUP: Leukocytosis and urinary tract infection. INTERVAL HISTORY: Patient is afebrile. The patient is breathing comfortably. Denies having any chest pain or cough. No nausea, vomiting, abdominal pain, no diarrhea. EXAMINATION: Blood pressure 114/78 with a pulse of 79, temperature 98.3. She is 97% on 2 L nasal cannula. General description is an elderly female lying in in no distress. Respiratory system: Unlabored breathing, clear to auscultation anteriorly. Heart S1, S2. Regular rate and rhythm. Abdomen soft. No tenderness. LABS: Hemoglobin is 10.8, white count 11.59. Cultures have been negative. DIAGNOSTIC IMPRESSION AND PLAN: Patient with leukocytosis concerning for UTI overall improvement on Rocephin and Levaquin to finish therapy with a short course of oral Ceftin and close outpatient followup as no other evidence of infection. Continue supportive care. MMODL / IJN: [id number] /
--- NOTE | 2020-07-29 17:34 | P.PN ---
Subjective Progress Note Date: 07/29/20 This is an 85-year-old female patient who presented to ER with complaints of generalized weakness. Patient reports that she has been treated for a urinary tract infection outpatient with minimum symptom improvement. Patient reports that she has generalized weakness with arm pain. Patient has a past medical history of chest pain, hyperlipidemia, hypertension and anxiety. UA completed on 07/21/2020 showing large amount of leukocyte Estrace. White blood cell elevated at 20.38 COVID-19 negative. Troponins mildly elevated 0.057 and 0.108. Lactic acid 1.3. Patient's temp 97.7. Heart rate 79, blood pressure 134/66. Cardiology services will be consulted. Patient started on Rocephin. Urine cult ure ordered. At this time patient denies chest pain or shortness of breath. Patient denies nausea vomiting or diarrhea. On 07/25/2020 Patient was seen and examined on the medical floor, she is alert slightly confused in no distress, she is complaining of generalized weakness otherwise she denies any complaints there is no fever or chills no headache or dizziness no chest pain no shortness of breath no palpitation no cough no nausea or vomiting no abdominal pain no diarrhea no blood in the stools no burning with urination no frequency or urgency and no hematuria, there is no weakness or numb ness in any of the extremities no change in vision speech or gait. White blood count is elevated at 22.04 with significant left shift. Patient is maintained on IV Rocephin infectious disease consultation was requested, kidney ultrasound was requested to assess cause of recurrent urinary tract infection. Patient was recently discharged from the hospital at that time she had a urinary tract infec tion urine culture was positive for E. coli that was sensitive to all antibiotics, she received IV Rocephin and was discharged home on oral Ceftin, however patient did not get her prescription and return to the hospital within less than 24 hours, due to severe fatigue. On 07/26/2020 patient is alert and oriented. Patient returning from CT of abdomen. CT of abdomen ordered per infectious disease. Labs today depending. Patient remains on IV Levaquin and Rocephin. Infectious disease is following. At this time patient denies chest pain or shortness of breath. Patient denies nausea vomiting or diarrhea. Patient denies any urinary burning or frequency. Patient was seen and cleared by cardiology services On 07/27/2020 Patient was seen and examined on the medical floor, she is alert s lightly confused in no distress, she is complaining of generalized weakness otherwise she denies any complaints there is no fever or chills no headache or dizziness no chest pain no shortness of breath no palpitation no cough no nausea or vomiting no abdominal pain no diarrhea no blood in the stools no burning with urination no frequency or urgency and no hematuria, there is no weakness or numbness in any of the extremities no change in vision speech or gait. WBC improving continue current antibiotics, will follow. On 07/28/2020 Patient was seen and examined on the medical floor, he is alert and oriented x 3 in no distress, he denies any complaints there is no fever or chills no headache or dizziness no chest pain no shortness of breath no palpitation no cough no nausea or vomiting no abdominal pain no diarrhea no blood in the stools no burning with urination no frequency or urgency and no hematuria, patient is improving gradually white blood count is coming down, physical therapy is following, possible discharge in the next 1-2 days, will assess if patient needs to be in rehab unit post discharge On 07/29/2020 Patient was seen and examined on the medical floor, he is alert and oriented x 3 in no distress, he denies any complaints there is no fever or chills no headache or dizziness no chest pain no shortness of breath no palpitation no cough no nausea or vomiting no abdominal pain no diarrhea no blood in the stools no burning with urination no frequency or urgency and no h ematuria, patient is improving gradually, will recheck labs in a.m., possible discharge tomorrow on oral antibiotics. Objective - Vital Signs Vital signs: Vital Signs Temp 97.7 F 07/29/20 14:00 Pulse 74 07/29/20 14:00 Resp 18 07/29/20 14:00 BP 115/70 07/29/20 14:00 Pulse Ox 98 07/29/20 14:00 Intake & Output 07/28/20 07/29/20 07/29/20 18:59 06:59 18:59 Intake Total 250 200 Balance 250 200 Weight 95 kg Intake: Intake, IV Titration 50 Amount cefTRIAXone 1 gm In 50 Sodium Chloride 0.9% 50 ml @ 100 mls/hr IVPB Q12H [facility] Rx#:[id number] Oral 200 200 Other: Voiding Method Bedside Commode Bedside Commode # Voids 1 - Exam Head normocephalic Neck supple Lungs clear to auscultation bilaterally no wheezing or crackles Heart regular rate and rhythm S1-S2, no rub or gallop Abdomen is soft nontender nondistended positive bowel sounds no hepatosplenomegaly Extremities no edema Neuro alert and orientated to 3 - Labs CBC & Chem 7: 07/28/20 07:05 07/28/20 07:05 Assessment and Plan Assessment: 1. Generalized weakness likely secondary to urinary tract infection 2. Urinary tract infection with sepsis. Urine culture ordered. Patient started on Rocephin and Levaquin added. Infectious disease is following 3. Elevated troponins. She was evaluated by cardiology services and cleared 4. History of essential hypertension 5. History of anxiety DVT prophylaxis Lovenox. GI prophylaxis Protonix. Infectious services following CT of abdomen ordered per ID Patient remains on Levaquin and Rocephin PT and OT consulted
[2020-07-29] MEDS: LEVOFLOXACIN 500 MG TAB PO SCH (20:45)
[2020-07-30] MEDS: ENOXAPARIN 40 MG/0.4 ML SYRINGE SQ SCH (08:11)
[2020-07-30] MEDS: ASPIRIN 81 MG PO SCH (08:11)
[2020-07-30] MEDS: PANTOPRAZOLE 40 MG TABLET PO SCH (08:11)
[2020-07-30 11:03] LABS: Basophils # (A) 0.08 X 10*3/uL (0.00-0.10); Basophils % (A) 0.4 %; Eosinophils # (A) 0.32 X 10*3/uL (0.04-0.35); Eosinophils % (A) 1.8 %; HCT 38.1 % (37.2-46.3); HGB 11.4 g/dL (12.0-15.0); Lymphocytes # (A) 0.64 X 10*3/uL (0.90-5.00); Lymphocytes % (A) 3.5 %; MCH 28.6 pg (27.0-32.0); MCHC 29.9 g/dL (32.0-37.0); MCV 95.5 fL (80.0-97.0); Mean Platelet Volume 9.6 fL (9.5-12.2); Monocytes # (A) 1.65 X 10*3/uL (0.20-1.00); Monocytes % (A) 9.1 %; Neutrophils # (A) 15.09 X 10*3/uL (1.80-7.70); Neutrophils % (A) 82.8 %; Platelet Count 265 X 10*3/uL (140-440); RBC 3.99 X 10*6/uL (4.10-5.20); RDW 13.3 % (11.5-14.5); WBC 18.21 X 10*3/uL (4.50-10.00)
[2020-07-30 12:37] LABS: African American GFR (CKD) 101.6 (60.0-200.0); Albumin 2.4 g/dL (3.80-4.90); Albumin/Globulin Ratio 1.14 (1.60-3.17); Anion Gap 5.5 mmol/L (4.00-12.00); Calcium 7.8 mg/dL (8.7-10.3); Carbon Dioxide 31.5 mmol/L (21.6-31.8); Globulin 2.1 g/dL (1.6-3.3); Non-African American GFR(CKD) 87.6 (60.0-200.0); Potassium 4.4 mmol/L (3.5-5.5); Total Bilirubin 0.3 mg/dL (0.3-1.2); Total Protein 4.5 g/dL (6.2-8.2)
[2020-07-30 13:39] VITALS: BMI 37.0
[2020-07-30] MEDS: FLUCONAZOLE 100 MG TAB PO SCH (18:06)
--- NOTE | 2020-07-30 18:22 | P.PN ---
Subjective Progress Note Date: 07/30/20 This is an 85-year-old female patient who presented to ER with complaints of generalized weakness. Patient reports that she has been treated for a urinary tract infection outpatient with minimum symptom improvement. Patient reports that she has generalized weakness with arm pain. Patient has a past medical history of chest pain, hyperlipidemia, hypertension and anxiety. UA completed on 07/21/2020 showing large amount of leukocyte Estrace. White blood cell elevated at 20.38 COVID-19 negative. Troponins mildly elevated 0.057 and 0.108. Lactic acid 1.3. Patient's temp 97.7. Heart rate 79, blood pressure 134/66. Cardiology services will be consulted. Patient started on Rocephin. Urine cult ure ordered. At this time patient denies chest pain or shortness of breath. Patient denies nausea vomiting or diarrhea. On 07/25/2020 Patient was seen and examined on the medical floor, she is alert slightly confused in no distress, she is complaining of generalized weakness otherwise she denies any complaints there is no fever or chills no headache or dizziness no chest pain no shortness of breath no palpitation no cough no nausea or vomiting no abdominal pain no diarrhea no blood in the stools no burning with urination no frequency or urgency and no hematuria, there is no weakness or numb ness in any of the extremities no change in vision speech or gait. White blood count is elevated at 22.04 with significant left shift. Patient is maintained on IV Rocephin infectious disease consultation was requested, kidney ultrasound was requested to assess cause of recurrent urinary tract infection. Patient was recently discharged from the hospital at that time she had a urinary tract infec tion urine culture was positive for E. coli that was sensitive to all antibiotics, she received IV Rocephin and was discharged home on oral Ceftin, however patient did not get her prescription and return to the hospital within less than 24 hours, due to severe fatigue. On 07/26/2020 patient is alert and oriented. Patient returning from CT of abdomen. CT of abdomen ordered per infectious disease. Labs today depending. Patient remains on IV Levaquin and Rocephin. Infectious disease is following. At this time patient denies chest pain or shortness of breath. Patient denies nausea vomiting or diarrhea. Patient denies any urinary burning or frequency. Patient was seen and cleared by cardiology services On 07/27/2020 Patient was seen and examined on the medical floor, she is alert s lightly confused in no distress, she is complaining of generalized weakness otherwise she denies any complaints there is no fever or chills no headache or dizziness no chest pain no shortness of breath no palpitation no cough no nausea or vomiting no abdominal pain no diarrhea no blood in the stools no burning with urination no frequency or urgency and no hematuria, there is no weakness or numbness in any of the extremities no change in vision speech or gait. WBC improving continue current antibiotics, will follow. On 07/28/2020 Patient was seen and examined on the medical floor, he is alert and oriented x 3 in no distress, he denies any complaints there is no fever or chills no headache or dizziness no chest pain no shortness of breath no palpitation no cough no nausea or vomiting no abdominal pain no diarrhea no blood in the stools no burning with urination no frequency or urgency and no hematuria, patient is improving gradually white blood count is coming down, physical therapy is following, possible discharge in the next 1-2 days, will assess if patient needs to be in rehab unit post discharge On 07/29/2020 Patient was seen and examined on the medical floor, he is alert and oriented x 3 in no distress, he denies any complaints there is no fever or chills no headache or dizziness no chest pain no shortness of breath no palpitation no cough no nausea or vomiting no abdominal pain no diarrhea no blood in the stools no burning with urination no frequency or urgency and no h ematuria, patient is improving gradually, will recheck labs in a.m., possible discharge tomorrow on oral antibiotics. On 07/30/2020 Patient was seen and examined on the medical floor, she is alert and oriented x 3 in no distress, she is complaining of generalized weakness otherwise she denies any complaints there is no fever or chills no headache or dizziness no chest pain no shortness of breath no palpitation no cough no nausea or vomiting no abdominal pain no diarrhea no blood in the stools no burning with urination no frequency or urgency and no hematuria, white blood count was improving so far however today it went up to 18.2 there is also immature granulocytes in CBC, will consult hematology. Per infectious disease recommendation will discontinue Levaquin and add Diflucan, patient denies any diarrhea at this time. Objective - Vital Signs Vital signs: Vital Signs Temp 98.2 F 07/30/20 14:52 Pulse 83 07/30/20 14:52 Resp 17 07/30/20 14:52 BP 108/68 07/30/20 14:52 Pulse Ox 91 L 07/30/20 14:52 Intake & Output 07/29/20 07/30/20 07/30/20 18:59 06:59 18:59 Intake Total 1080 Balance 1080 Weight 95 kg Intake: Oral 1080 Other: Voiding Method Bedside Commode # Voids 3 1 1 # Bowel Movements 1 1 - Exam Head normocephalic Neck supple Lungs clear to auscultation bilaterally no wheezing or crackles Heart regular rate and rhythm S1-S2, no rub or gallop Abdomen is soft nontender nondistended positive bowel sounds no hepatosplenomegaly Extremities no edema Neuro alert and orientated to 3 - Labs CBC & Chem 7: 07/30/20 07:47 07/30/20 07:47 Labs: Abnormal Lab Results - Last 24 Hours (Table) 07/30/20 07/30/20 Range/Units 07:47 07:47 WBC 18.21 H (4.50-10.00) X 10*3/uL RBC 3.99 L (4.10-5.20) X 10*6/uL Hgb 11.4 L (12.0-15.0) g/dL MCHC 29.9 L (32.0-37.0) g/dL Immature Gran # 0.43 H (0.00-0.04) X 10*3/uL Neutrophils # 15.09 H (1.80-7.70) X 10*3/uL Lymphocytes # 0.64 L (0.90-5.00) X 10*3/uL Monocytes # 1.65 H (0.20-1.00) X 10*3/uL Creatinine 0.5 L (0.6-1.5) mg/dL Glucose 142 H (70-110) mg/dL Calcium 7.8 L (8.7-10.3) mg/dL Total Protein 4.5 L (6.2-8.2) g/dL Albumin 2.40 L (3.80-4.90) g/dL Albumin/Globulin Ratio 1.14 L (1.60-3.17) g/dL Assessment and Plan Assessment: 1. Generalized weakness likely secondary to urinary tract infection 2. Urinary tract infection with sepsis. Urine culture ordered. Patient started on Rocephin and Levaquin added. Infectious disease is following 3. Elevated troponins. She was evaluated by cardiology services and cleared 4. History of essential hypertension 5. History of anxiety DVT prophylaxis Lovenox. GI prophylaxis Protonix. Infectious services following CT of abdomen ordered per ID Patient remains on Levaquin and Rocephin PT and OT consulted
[2020-07-30] MEDS: HYDROcodone/APAP 5-325MG 1 EACH TAB PO PRN (19:49)
--- NOTE | 2020-07-30 22:36 | PN ---
PROGRESS NOTE DATE OF SERVICE: 07/30/2020 REASON FOR FOLLOWUP: UTI and leukocytosis. INTERVAL HISTORY: Patient is afebrile. The patient is breathing comfortably. The patient denies having any chest pain, shortness of breath or cough. No abdominal pain or diarrhea. Mentioned not feeling that good today. PHYSICAL EXAMINATION: Blood pressure 117/76, pulse of 88, temperature 97.6. He is 91% on room air. General description is an elderly female lying in in no distress. Respiratory system: Unlabored breathing. Clear to auscultation anteriorly. Heart S1, S2. Regular rate and rhythm. ABDOMEN: Soft, no tenderness. EXTREMITIES: No edema of the feet. LABS: Hemoglobin is 11.4, white count of 18.1, BUN of 10, creatinine 0.5. DIAGNOSTIC IMPRESSION AND PLAN: Patient with leukocytosis, concern likely for urinary tract infection in this patient who did show initial improvement of the white count, however, did have significant jump in white count today. We will add Diflucan and see response to it. This was discussed with the admitting physician. Repeat a CBC tomorrow. MMODL / IJN: [id number] /
[2020-07-31] MEDS: HYDROcodone/APAP 5-325MG 1 EACH TAB PO PRN (02:15)
[2020-07-31] MEDS: ASPIRIN 81 MG PO SCH (08:18)
[2020-07-31] MEDS: PANTOPRAZOLE 40 MG TABLET PO SCH (08:18)
[2020-07-31] MEDS: ENOXAPARIN 40 MG/0.4 ML SYRINGE SQ SCH (08:18)
[2020-07-31] MEDS: FLUCONAZOLE 100 MG TAB PO SCH (08:18)
--- NOTE | 2020-07-31 09:30 | P.PN ---
Subjective I have been asked review patient's case possible inpatient rehab. PT reports supervision for bed mobility and gait up to 50 feet 2 with roller walker. Occupation therapy reports supervision for upper dressing and for functional mobility and transfers. Maximal assistance for lower dressing, bathing, toileting. Comments: At this time patient does not meet insurance criteria for inpatient rehab as patient is not required physical assist for functional mobility and gait, see physical therapy note. Objective - Vital Signs Vital signs: Vital Signs Temp 98.1 F 07/31/20 07:53 Pulse 81 07/31/20 07:53 Resp 18 07/31/20 07:53 BP 119/71 07/31/20 07:53 Pulse Ox 97 07/31/20 07:53 Intake & Output 07/30/20 07/31/20 07/31/20 18:59 06:59 18:59 Output Total 1 Balance -1 Weight 95 kg 91 kg Output: Stool 1 Other: Voiding Method Bedside Commode Bedside Commode # Voids 1 2 2 # Bowel Movements 1 - Labs CBC & Chem 7: 07/30/20 07:47 07/30/20 07:47 Labs: Abnormal Lab Results - Last 24 Hours (Table) 07/30/20 07/30/20 Range/Units 07:47 07:47 WBC 18.21 H (4.50-10.00) X 10*3/uL RBC 3.99 L (4.10-5.20) X 10*6/uL Hgb 11.4 L (12.0-15.0) g/dL MCHC 29.9 L (32.0-37.0) g/dL Immature Gran # 0.43 H (0.00-0.04) X 10*3/uL Neutrophils # 15.09 H (1.80-7.70) X 10*3/uL Lymphocytes # 0.64 L (0.90-5.00) X 10*3/uL Monocytes # 1.65 H (0.20-1.00) X 10*3/uL Creatinine 0.5 L (0.6-1.5) mg/dL Glucose 142 H (70-110) mg/dL Calcium 7.8 L (8.7-10.3) mg/dL Total Protein 4.5 L (6.2-8.2) g/dL Albumin 2.40 L (3.80-4.90) g/dL Albumin/Globulin Ratio 1.14 L (1.60-3.17) g/dL Assessment and Plan (1) Urinary tract infection Current Visit: Yes Status: Acute Code(s): N39.0 - URINARY TRACT INFECTION, SITE NOT SPECIFIED SNOMED Code(s): 12209144 (2) Weakness Current Visit: Yes Status: Acute Code(s): R53.1 - WEAKNESS SNOMED Code(s): 17737110 (3) Elevated troponin Current Visit: No Status: Acute Code(s): R77.8 - OTHER SPECIFIED ABNORMALITIES OF PLASMA PROTEINS SNOMED Code(s): 819873547
[2020-07-31 09:56] LABS: ALT 14 U/L (4-34); AST 30 U/L (14-36); African American GFR (CKD) >90 (>60 ml/min/1.73 sqM); Albumin 1.9 g/dL (3.5-5.0); Albumin/Globulin Ratio 0.8; Alkaline Phosphatase 43 U/L (38-126); Anion Gap -1 mmol/L; Blood Urea Nitrogen 10 mg/dL (7-17); Calcium 7.4 mg/dL (8.4-10.2); Carbon Dioxide 35 mmol/L (22-30); Chloride 98 mmol/L (98-107); Globulin 2.5 g/dL; Glucose 137 mg/dL (74-99); Non-African American GFR(CKD) 87 (>60 ml/min/1.73 sqM); Potassium 3.9 mmol/L (3.5-5.1); Sodium 132 mmol/L (137-145); Total Bilirubin 0.1 mg/dL (0.2-1.3); Total Protein 4.4 g/dL (6.3-8.2)
[2020-07-31 10:08] LABS: Basophils # (A) 0.1 k/uL (0-0.2); Basophils % (A) 0 %; Eosinophils # (A) 0.5 k/uL (0-0.7); Eosinophils % (A) 3 %; HCT 36.9 % (34.0-46.0); HGB 11.5 gm/dL (11.4-16.0); Hypochromasia Slight; Lymphocytes # (A) 0.7 k/uL (1.0-4.8); Lymphocytes % (A) 5 %; MCH 28.2 pg (25.0-35.0); MCHC 31.1 g/dL (31.0-37.0); MCV 90.7 fL (80.0-100.0); Mean Platelet Volume 7.2; Monocytes # (A) 1.4 k/uL (0-1.0); Monocytes % (A) 9 %; Neutrophils # (A) 13.7 k/uL (1.3-7.7); Neutrophils % (A) 83 %; RBC 4.07 m/uL (3.80-5.40); RDW 13.2 % (11.5-15.5); WBC 16.5 k/uL (3.8-10.6)
[2020-07-31 10:16] LABS: Platelet Count 272 k/uL (150-450)
--- NOTE | 2020-07-31 13:21 | PN ---
PROGRESS NOTE DATE OF SERVICE: 07/31/2020 REASON FOR FOLLOWUP: Leukocytosis and UTI. INTERVAL HISTORY: The patient is afebrile. The patient is breathing comfortably, however, is requiring supplemental oxygen. The patient denies any chest pain or cough. No nausea, no vomiting, no abdominal pain or diarrhea. PHYSICAL EXAMINATION: VITAL SIGNS: Blood pressure 119/71, pulse 81, temperature 98.1, he is 97% on 2 L nasal cannula. GENERAL DESCRIPTION: An elderly female lying in in no distress. RESPIRATORY SYSTEM: Unlabored breathing, clear to auscultation anteriorly. HEART: S1, S2. Regular rate and rhythm. ABDOMEN: Soft, no tenderness. EXTREMITIES: No edema of the feet. LABS: Hemoglobin is 11.2, white count 16.5. The patient did have immature granulocytes. Creatinine 0.53. DIAGNOSTIC IMPRESSION AND PLAN: Patient with leukocytosis which is multifactorial, question of possible hematological malignancy for which Hematology has been consulted. Her white count came down. Recommend short course of oral Diflucan as per discussion with nurse practitioner. Continue supportive care. MMODL / IJN: [id number] /
[2020-07-31 13:52] VITALS: BP 117/68; PULSE 92; RESP 16; TEMP 97.8
--- NOTE | 2020-07-31 14:20 | XR ---
EXAMINATION TYPE: XR chest 2V DATE OF EXAM: 07/31/2020 COMPARISON: Chest x-ray 8 days ago HISTORY: Abnormal physical exam, crackles to lungs TECHNIQUE: Frontal and lateral views of the chest are obtained. FINDINGS: Low lung volumes and chronic parenchymal changes bilaterally redemonstrated. There is no ne w suspicious focal air space opacity, pleural effusion, or pneumothorax seen. The cardiac silhouette size is stable mildly enlarged with atherosclerotic aorta. The osseous structures remain demineral ized. IMPRESSION: Low lung volumes and chronic changes with mild cardiomegaly, no acute pulmonary process. No significant change from prior.
--- NOTE | 2020-07-31 14:22 | P.DS ---
Providers Date of admission: 07/25/20 23:27 Expected date of discharge: 07/31/20 Attending physician: Mily Child Consults: 07/24/20 09:00 Consult Physician Routine Consulting Provider: Keena Castro Consult Reason/Comments: elevated trop Do you want consulting provider notified?: Yes 07/24/20 14:46 Consult Physician Routine Consulting Provider: Hai Nolan Consult Reason/Comments: possible rehab admission Do you want consulting provider notified?: Yes 07/25/20 11:02 Consult Physician Routine Consulting Provider: Rayna Santoyo Consult Reason/Comments: UTI, leukocytosis Do you want consulting provider notified?: Yes 07/25/20 11:12 Consult Physician Stat Consulting Provider: Andreas Chatman Consult Reason/Comments: elevated trop Do you want consulting provider notified?: Yes 07/30/20 12:16 Consult Physician Routine Consulting Provider: Augustine Crain Consult Reason/Comments: abnormal CBC Do you want consulting provider notified?: Yes Primary care physician: Ronna Wall Hospital Course: Discharge diagnosis 1. Generalized weakness likely secondary to urinary tract infection 2. Urinary tract infection with sepsis. Urine culture ordered. Patient started on Rocephin and Levaquin added. Infectious disease is following. Patient has been cleared by infectious disease patient will be discharged on Diflucan and Ceftin 3. Elevated troponins. She was evaluated by cardiology services and cleared 4. History of essential hypertension 5. History of anxiety 6. Abnormal CBC. Hematology services have been consulted due to increase of immature granulocytes Continue and continued elevated WBC despite antibiotic therapy. Discussed case with hematology nurse practitioner Juanis. Patient has been cleared for discharge lab work ordered will be added to current lab draw no further workup needed Hospital course This is an 85-year-old female patient who presented to ER with complaints of generalized weakness. Patient reports that she has been treated for a urinary tract infection outpatient with minimum symptom improvement. Patient reports that she has generalized weakness with arm pain. Patient has a past medical history of chest pain, hyperlipidemia, hypertension and anxiety. UA completed on 07/21/2020 showing large amount of leukocyte Estrace. White blood cell elevated at 20.38 COVID-19 negative. Troponins mildly elevated 0.057 and 0.108. Lactic acid 1.3. Patient's temp 97.7. Heart rate 79, blood pressure 134/66. Cardiology services will be consulted. Patient started on Rocephin. Urine culture ordered. At this time patient denies chest pain or shortness of breath. Patient denies nausea vomiting or diarrhea. On 07/25/2020 Patient was seen and examined on the medical floor, she is alert slightly confused in no distress, she is complaining of generalized weakness otherwise she denies any complaints there is no fever or chills no headache or dizziness no chest pain no shortness of breath no palpitation no cough no nausea or vomiting no abdominal pain no diarrhea no blood in the stools no burning with urination no frequency or urgency and no hematuria, there is no weakness or numbness in any of the extremities no change in vision speech or gait. White blood count is elevated at 22.04 with significant left shift. Patient is maintained on IV Rocephin infectious disease consultation was requested, kidney ultrasound was requested to assess cause of recurrent urinary tract infection. Patient was recently discharged from the hospital at that time she had a urinary tract infection urine culture was positive for E. coli that was sensitive to all antibiotics, she received IV Rocephin and was discharged home on oral Ceftin, however patient did not get her prescription and return to the hospital within less than 24 hours, due to severe fatigue. On 07/26/2020 patient is alert and oriented. Patient returning from CT of abdomen. CT of abdomen ordered per infectious disease. Labs today depending. Patient remains on IV Levaquin and Rocephin. Infectious disease is following. At this time patient denies chest pain or shortness of breath. Patient denies nausea vomiting or diarrhea. Patient denies any urinary burning or frequency. Patient was seen and cleared by cardiology services On 07/27/2020 Patient was seen and examined on the medical floor, she is alert slightly confused in no distress, she is complaining of generalized weakness otherwise she denies any complaints there is no fever or chills no headache or dizziness no chest pain no shortness of breath no palpitation no cough no nausea or vomiting no abdominal pain no diarrhea no blood in the stools no burning with urination no frequency or urgency and no hematuria, there is no weakness or numbness in any of the extremities no change in vision speech or gait. WBC improving continue current antibiotics, will follow. On 07/28/2020 Patient was seen and examined on the medical floor, he is alert and oriented x 3 in no distress, he denies any complaints there is no fever or chills no headache or dizziness no chest pain no shortness of breath no palpitation no cough no nausea or vomiting no abdominal pain no diarrhea no blood in the stools no burning with urination no frequency or urgency and no hematuria, patient is improving gradually white blood count is coming down, physical therapy is following, possible discharge in the next 1-2 days, will assess if patient needs to be in rehab unit post discharge On 07/29/2020 Patient was seen and examined on the medical floor, he is alert and oriented x 3 in no distress, he denies any complaints there is no fever or chills no headache or dizziness no chest pain no shortness of breath no palpitation no cough no nausea or vomiting no abdominal pain no diarrhea no blood in the stools no burning with urination no frequency or urgency and no hematuria, patient is improving gradually, will recheck labs in a.m., possible discharge tomorrow on oral antibiotics. On 07/30/2020 Patient was seen and examined on the medical floor, she is alert and oriented x 3 in no distress, she is complaining of generalized weakness otherwise she denies any complaints there is no fever or chills no headache or dizziness no chest pain no shortness of breath no palpitation no cough no nausea or vomiting no abdominal pain no diarrhea no blood in the stools no burning with urination no frequency or urgency and no hematuria, white blood count was improving so far however today it went up to 18.2 there is also immature granu locytes in CBC, will consult hematology. Per infectious disease recommendation will discontinue Levaquin and add Diflucan, patient denies any diarrhea at this time. On 07/31/2020 patient is alert and oriented 3. Discussed case with infectious disease. White blood cell is trending down and patient has been cleared for discharge from infectious disease standpoint. Recommend discharged on Diflucan. Ceftin will be added for 7 days. Patient also evaluated by hematology services due to immature granulocytes and CBC. Discussed case with nurse practitioner Juanis with hematology team no further workup needed while inpatient. Blood work added. Will follow up with hematology outpatient. At this time patient denies chest pain or shortness breath. Patient denies nausea vomiting or diarrhea. Patient denies any urinary burning or frequency Patient Condition at Discharge: Stable Plan - Discharge Summary Discharge Rx Participant: No New Discharge Prescriptions: New Acetaminophen Tab [Tylenol] 650 mg PO Q6HR PRN tab PRN Reason: Fever And/ Or Pain Fluconazole [Diflucan] 100 mg PO DAILY 7 Days tab Continue Ibuprofen [Advil] 200 mg PO Q8H PRN PRN Reason: Fever And/ Or Pain Nitroglycerin Sl Tabs [Nitrostat] 0.4 mg SL Q5M PRN PRN Reason: Chest Pain Aspirin 81 mg PO DAILY chew Cefuroxime Axetil [Ceftin] 500 mg PO BID 7 Days #14 tab Discharge Medication List Ibuprofen [Advil] 200 mg PO Q8H PRN 07/21/20 [History] Aspirin 81 mg PO DAILY chew 07/23/20 [Rx] Cefuroxime Axetil [Ceftin] 500 mg PO BID 7 Days #14 tab 07/23/20 [Rx] Nitroglycerin Sl Tabs [Nitrostat] 0.4 mg SL Q5M PRN 07/23/20 [History] Acetaminophen Tab [Tylenol] 650 mg PO Q6HR PRN tab 07/31/20 [Rx] Fluconazole [Diflucan] 100 mg PO DAILY 7 Days tab 07/31/20 [Rx] Follow up Appointment(s)/Referral(s): Ronna Wall MD [Primary Care Provider] - 1-2 days
--- NOTE | 2020-07-31 14:46 | P.CONS ---
History of Present Illness - Reason for Consult Consult date: 07/31/20 abnormal CBC Requesting physician: Mily Child - Chief Complaint failed outpt Tx of UTI - History of Present Illness Pt is a very pleasant 85 year old female pt with no history of blood disorder or cancer who is admitted as she was failing outpt treatment of UTI. She was noted to have leukocytosis with left shift, mildly elevated monocytes and slightly low lymphocytes. Pt denies fevers, sweats, unintentional wt. loss, appetite is good, no dysphagia, odynophagia, N,V, stomach c/o, SOB, cough, acute changes in bowels, swelling, bleeding, unusual bruising. She does have new pain in the left shoulder, no numbness or tingling in the arm, no significant loss of strength. Review of Systems 10 point ROS is neg except as stated in HPI Past Medical History Past Medical History: Chest Pain / Angina, Eye Disorder, Hyperlipidemia, Hypertension, Osteoarthritis (OA), Syncope, Thyroid Disorder Additional Past Medical History / Comment(s): Pt recently admitted to [facility] on 07/21/20 with L arm pain, mildly elevated troponin, abnormal EKG with T wave inversion in anterior leads and UTI. 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 History of Any Multi-Drug Resistant Organisms: None Reported Past Surgical History: Back Surgery, Hysterectomy, Joint Replacement, Orthopedic Surgery Additional Past Surgical History / Comment(s): thyroidectomy, edg/colonoscopy, leonor knee arthroscopies, leonor knee arthroplasties, sx to repair R fibula fracture. Past Anesthesia/Blood Transfusion Reactions: Motion Sickness Additional Past Anesthesia/Blood Transfusion Reaction / Comm: blood transfusion- no reaction Smoking Status: Never smoker - Past Family History Mother Family Medical History: Cancer Additional Family Medical History / Comment(s): breast cancer Sister(s) Family Medical History: Cancer Additional Family Medical History / Comment(s): breast cancer Father Family Medical History: Myocardial Infarction (NM) Additional Family Medical History / Comment(s): from [place] at age 62 Medications and Allergies Home Medications Medication Instructions Recorded Confirmed Type Ibuprofen [Advil] 200 mg PO Q8H PRN 07/21/20 07/23/20 History Aspirin 81 mg PO DAILY chew 07/23/20 07/23/20 Rx Cefuroxime Axetil [Ceftin] 500 mg PO BID 7 Days #14 tab 07/23/20 07/23/20 Rx Nitroglycerin Sl Tabs [Nitrostat] 0.4 mg SL Q5M PRN 07/23/20 07/23/20 History Acetaminophen Tab [Tylenol] 650 mg PO Q6HR PRN tab 07/31/20 Rx Fluconazole [Diflucan] 100 mg PO DAILY 7 Days tab 07/31/20 Rx Allergies Allergy/AdvReac Type Severity Reaction Status Date / Time No Known Allergies Allergy Verified 07/23/20 23:06 Physical Exam Vitals: Vital Signs Temp Pulse Resp BP Pulse Ox 07/31/20 13:50 97.8 F 92 16 117/68 92 L 07/31/20 09:31 96 07/31/20 07:53 98.1 F 81 18 119/71 97 07/31/20 07:50 81 18 07/31/20 02:00 98.4 F 87 18 118/67 94 L 07/30/20 20:00 97.6 F 88 18 117/76 91 L 07/30/20 14:52 98.2 F 83 17 108/68 91 L Intake and Output 07/30/20 07/31/20 07/31/20 22:59 06:59 14:59 Output Total 1 Balance -1 Output: Stool 1 Other: Voiding Method Bedside Commode Bedside Commode # Voids 1 2 2 # Bowel Movements 1 Weight 91 kg - Constitutional General appearance: average body habitus, cooperative, no acute distress - EENT Eyes: anicteric sclerae, EOMI ENT: hearing grossly normal, normal oropharynx - Neck Neck: no lymphadenopathy - Respiratory Respiratory: bilateral: CTA - Cardiovascular Rhythm: regular Heart sounds: normal: S1, S2 Abnormal Heart Sounds: no systolic murmur, no diastolic murmur, no rub, no S3 Gallop, no S4 Gallop, no click, no other leg Peripheral Edema: bilateral: Trace - Gastrointestinal General gastrointestinal: normal bowel sounds, soft - Integumentary Integumentary: normal - Neurologic Neurologic: CNII-XII intact - Musculoskeletal Musculoskeletal: generalized weakness, strength equal bilaterally - Psychiatric Psychiatric: A&O x's 3, appropriate affect, intact judgment & insight Results CBC & Chem 7: 07/31/20 09:20 07/31/20 09:20 Labs: Abnormal Lab Results - Last 24 Hours (Table) 07/31/20 07/31/20 Range/Units 09:20 09:20 WBC 16.5 H (3.8-10.6) k/uL Neutrophils # 13.7 H (1.3-7.7) k/uL Lymphocytes # 0.7 L (1.0-4.8) k/uL Monocytes # 1.4 H (0-1.0) k/uL Sodium 132 L (137-145) mmol/L Carbon Dioxide 35 H (22-30) mmol/L Glucose 137 H (74-99) mg/dL Calcium 7.4 L (8.4-10.2) mg/dL Total Bilirubin 0.1 L (0.2-1.3) mg/dL Total Protein 4.4 L (6.3-8.2) g/dL Albumin 1.9 L (3.5-5.0) g/dL Chest x-ray: report reviewed CT scan - abdomen: report reviewed CT scan - pelvis: report reviewed Assessment and Plan (1) Leukocytosis Narrative/Plan: WBC with left shift/ANC increased, ALC decreased, mild monocytosis. At pt age and with acute infection these findings are not completely unrealistic. Did review pt CBC with diff in this medical record and some mild progression noted. Some labs have been ordered. Pt could have an underlying MDS or CMML but, her other counts are not significantly affected so, would not pursue any aggressive work up at this time. Recommend CBC diff monitoring as her infection is treated. Referral back to Hem/Onc if progressive. Current Visit: Yes Status: Acute Priority: Medium Code(s): D72.829 - ELEVATED WHITE BLOOD CELL COUNT, UNSPECIFIED SNOMED Code(s): 493767249 (2) Urinary tract infection Current Visit: Yes Status: Acute Priority: Medium Code(s): N39.0 - URINARY TRACT INFECTION, SITE NOT SPECIFIED SNOMED Code(s): 37030374 Plan: Doctor attests: I performed a history and physical examination of this patient, developed impression and plan of care, discussed with dictator. I agree with dictators note, documented as a scribe.
[2020-07-31 21:36] LABS: Ferritin 166.9 ng/mL (10.0-291.0)
[2020-07-31 23:23] LABS: % Iron Saturation 17.71 (12.00-45.00)
[2020-08-02 07:17] LABS: Methylmalonic Acid 0.13 umol/L (<0.40)
== END 2020-07-31 16:14 ==
LOC: EC 20:20 → 6NMEDSUR 22:50 → 3SCARD 07-24 01:17 → 4SSUR 07-24 18:17 → INTOOBSV 07-25 23:27 → OBSVTOIN 07-25 23:27 → UNDODISIN 07-31 16:14
PROVIDERS: ADMIT Internal Medicine; ATTEND Internal Medicine
DX: A41.9 Sepsis, unspecified organism (principal); N39.0 Urinary tract infection, site not specified; B96.20 Unspecified Escherichia coli [E. coli] as the cause of diseases classified elsewhere; R53.1 Weakness; R77.8 Other specified abnormalities of plasma proteins; I10 Essential (primary) hypertension; F41.9 Anxiety disorder, unspecified; Z20.822 Contact with and (suspected) exposure to COVID-19
CPT/HCPCS: 96361 ×3; 96365; 96375 ×2; 96376 ×6; 96366 ×5; 96367; 96372 ×7; 99285; 36415; 94760 ×2; 93005 ×2; 97116 ×2; 97162; 97535; 97166; 83921; 82747; 83880; 80053 ×7; 80048; 85652; 82607; 82728; 83540; 83550; 83605 ×2; 83735; 84100; 84443; 84484 ×2; 85025 ×8; 85610; 85730; 81001; 87635 ×2; 71046 ×2; 76770; 74177; G0378 ×11; J2270 ×3; J1956 ×3; J0696 ×9; J1650 ×7; C9113 ×4; Q9967